=== PATIENT | male | born 1980 | race Caucasian/White ===

== ENCOUNTER 2020-07-17 23:15 | Observation (INO) | payer MEDICARE, MEDICAID, SELFPAY ==
--- NOTE | 2020-07-17 23:02 | ECG_ITS ---
APPROVED REPORT Exam: Resting ECG HR:112 bpm ECG Measurements Heart Rate 112 AXES DE 132 P 53 QRSd 90 QRS -11 QT 338 T 65 QTc 461 Conclusion Sinus tachycardia Otherwise normal ECG Electronically signed by : Jeff Partida, 07/18/2020 19:50:53
[2020-07-17 23:03] VITALS: BP 123/75; PULSE 107; RESP 16; TEMP 37.1; O2SAT 97; BMI 30.1
--- NOTE | 2020-07-17 23:09 | XR_ITS ---
PROCEDURE INFORMATION: Exam: XR Chest Exam date and time: 07/17/2020 11:09 PM Age: 40 years old Clinical indication: Radiating and sternal or substernal pain; Patient HX: Chest pain that radiates down left arm; Additional info: Cp TECHNIQUE: Imaging protocol: XR of the chest. Views: 2 views. COMPARISON: No relevant prior studies available. FINDINGS: Lungs: The lungs are clear without consolidation. Pleural spaces: Unremarkable. No pleural effusion. No pneumothorax. Heart/Mediastinum: The cardiac silhouette, mediastinal contours and hilar shadows appear unremarkable. Bones/joints: Osseous structures grossly intact. IMPRESSION: No acute cardiopulmonary disease.
--- NOTE | 2020-07-17 23:27 | HMH.EDCP ---
ED Disposition Clinical Impression: Obesity (BMI 30.0-34.9), Amphetamine abuse Chest pain Qualifiers: Chest pain type: precordial pain Qualified Code(s): R07.2 - Precordial pain Disposition: Admitted as Observation Condition on Discharge: Good Referrals: Provider,Referral, [Primary Care Provider] - - Critical Care Critical Care Time: No Attestation: On 07/17/20, the high probability of a clinically significant, sudden or life threatening deterioration of the following system(s) required my full and direct attention, intervention and personal management. The time I documented below is in addition to time spent performing reported procedures but includes the following listed in this critical care notation. Medical Decision Making - Medical Records Medical records reviewed: Yes: I reviewed the patient's medical records. - Andrea Inquiry Pt receiving controlled substance: No Vital Signs: 07/17/20 23:03 07/17/20 23:30 07/18/20 00:07 Temperature 98.7 F Temperature Source Oral Pulse Rate 93 H 83 Pulse Rate [Right] 107 H Respiratory Rate 16 16 Blood Pressure 129/80 120/77 Blood Pressure [Right Arm] 123/75 Blood Pressure Mean 96 87 Blood Pressure Mean [Right Arm] 91 02 Sat by Pulse Oximetry 97 96 98 07/18/20 00:30 Temperature Temperature Source Pulse Rate 93 H Pulse Rate [Right] Respiratory Rate Blood Pressure 135/76 Blood Pressure [Right Arm] Blood Pressure Mean 97 Blood Pressure Mean [Right Arm] 02 Sat by Pulse Oximetry 97 - Lab Data Lab results reviewed: Yes: I reviewed the patient's lab results. Lab Results 07/17/20 00:04: Urine Opiates Screen Negative, Urine Methadone Screen Negative, Ur Barbituates Screen Negative, Ur Phencyclidine Scrn Negative, U Benzodiazepines Scrn Positive H, Urine Cocaine Screen Negative, U Marijuana (THC) Screen Negative 07/17/20 23:03: WBC 12.1 H, RBC 5.41, Hgb 15.7, Hct 46.5, MCV 85.9, MCH 29.0, MCHC 33.8, RDW 15.9, Plt Count 348, MPV 8.4, Neut % (Auto) 64.7, Lymph % (Auto) 26.1, [place] % (Auto) 7.8, Eos % (Auto) 0.8, Baso % (Auto) 0.6, Neut # (Auto) 7.9 H, Lymph # (Auto) 3.2, [place] # (Auto) 1.0, Eos # (Auto) 0.1, Baso # (Auto) 0.1, ESR 22 H 07/17/20 23:03: Sodium 137, Potassium 3.2 L, Chloride 104, Carbon Dioxide 24, Anion Gap 12.2, BUN 14, Creatinine 1.00, Estimated Creat Clear 131, Estimated GFR 82, Est GFR ( Amer) 100, Glucose 152 H, Calcium 8.8, Total Bilirubin 0.3, Direct Bilirubin 0.3, Conjugated Bilirubin 0.0, Indirect Bilirubin 0.0, Unconjugated Bilirubin 0.0, AST 30, ALT 22, Alkaline Phosphatase 154 H, Troponin I < 0.01, C-Reactive Protein 8.3 H, Total Protein 6.9, Albumin 3.9, Procalcitonin 0.037, Salicylates 1.1 L, Acetaminophen < 10 L 07/17/20 23:03: Plasma/Serum Alcohol < 10 07/18/20 00:04: Urine Color Yellow, Urine Appearance Clear, Urine pH 6.0, Ur Specific [place] >= 1.030, Urine Protein Negative, Urine Glucose (UA) Negative, Urine Ketones Trace, Urine Blood Negative, Urine Nitrate Negative, Urine Bilirubin Negative, Urine Urobilinogen 0.2, Ur Leukocyte Esterase Negative, Urine WBC Occasional, Urine Bacteria Trace, Urine Mucus 1+ Result diagrams: 07/17/20 23:03 07/17/20 23:03 Orders (Tests/Meds): ED MEDICATIONS Generic Name Dose Route Start Last Admin Trade Name Freq PRN Reason Stop Dose Admin Sodium Chloride 1,000 mls @ 999 mls/hr 07/17/20 23:15 07/17/20 23:14 Sod Chlor 0.9% 1000ml Bag IV 07/18/20 00:15 999 mls/hr .Q1H1M AYALA Administration Discontinued Medications Generic Name Dose Route Start Last Admin Trade Name Freq PRN Reason Stop Dose Admin Nitroglycerin 1 gm 07/17/20 23:12 07/17/20 23:14 Nitroglycerin 1 Gm Ointment TD 07/17/20 23:13 1 gm ONCE ONE Administration ORDERS Category Date Time Status Drug Screen,Urine Stat Lab 07/17/20 00:04 Results Full Resp Panel w/COVID ([facility]) Routine Lab 07/18/20 00:35 Received Troponin I Q3H Lab 07/18/20 02:15 Ordered Troponin I Q3H Lab 0
[2020-07-17 23:30] VITALS: BP 129/80; PULSE 93; RESP 16; O2SAT 96
[2020-07-17 23:36] LABS: Basophils # 0.1 K/mm3 (0-0.2); Basophils % 0.6 % (0.1-2.0); Eosinophils # 0.1 K/mm3 (0.0-0.4); Eosinophils % 0.8 % (0.1-12.0); Hematocrit 46.5 % (42.0-52.0); Hemoglobin 15.7 g/dL (14.1-18.0); Lymphocytes # 3.2 K/mm3 (0.7-4.5); Lymphocytes % 26.1 % (10-50); Mean Corpuscular HGB Conc 33.8 g/dL (31.8-35.4); Mean Corpuscular Volume 85.9 fl (80-94); Mean Platelet Volume 8.4 fl (7.4-10.4); Monocytes % 7.8 % (1.7-9.3); Neutrophils # 7.9 K/mm3 (1.8-7.8); Neutrophils % 64.7 % (37.0-80.0); Platelet Count 348 K/mm3 (142-424); Red Blood Count 5.41 M/mm3 (4.60-6.20); Red Cell Distribution Width 15.9 % (11.5-17.5); White Blood Count 12.1 K/mm3 (4.8-10.8)
[2020-07-17 23:38] LABS: Chloride 104 mmol/L (98-107)
[2020-07-17 23:39] LABS: Potassium 3.2 mmoL/L (3.5-5.1); Sodium 137 mmol/L (136-145)
[2020-07-17 23:41] LABS: Anion Gap 12.2 mEq/L (5-15); Blood Urea Nitrogen 14 mg/dl (9-20); Carbon Dioxide 24 mmol/L (22.0-30.0); Creatinine Clearance Estimated 131 mL/min (50-200); Estimated Glomerular Filt Rate 82 ml/min (>60); GFR (African American) 100 ML/MIN (>60)
[2020-07-17 23:42] LABS: Alanine Aminotransferase 22 U/L (12-78); Albumin Level 3.9 g/dl (3.5-5.0); Alkaline Phosphatase 154 U/L (38-126); Aspartate Amino Transferase 30 U/L (17-59); Bilirubin,Direct 0.3 mg/dl (0.0-0.4); Bilirubin,Total 0.3 mg/dl (0.2-1.3); Calcium 8.8 mg/dl (8.4-10.2); Glucose 152 mg/dl (74-100); Salicylate 1.1 mg/dL (2.0-20.0); Total Protein,Serum 6.9 g/dl (6.3-8.2)
[2020-07-17 23:43] LABS: Acetaminophen < 10 ug/ml (10-30); Ethyl Alcohol < 10 mg/dl (0-10)
[2020-07-17 23:47] LABS: C-Reactive Protein 8.3 mg/L (0-4)
[2020-07-18] VITALS (9 sets, daily range): BP systolic 105–135; BP diastolic 62–77; PULSE 70–93; RESP 16–18; TEMP 36.8–37.2; O2SAT 96–98; BMI 28.6
[2020-07-18 00:05] LABS: Erythrocyte Sedimentation Rate 22 mm/hr (0-15)
[2020-07-18 00:11] LABS: Microscopic, Urine URINE MICROSCOPIC (MICROSCOPIC)
[2020-07-18 00:23] LABS: Appearance,Urine CLEAR (Clear); Blood, Urine Negative (Negative); Color,Urine YELLOW (Yellow); Glucose,Urine (UA) Negative (Negative); Ketones,Urine TRACE (Negative); Leukocyte Esterase,Urine Negative (Negative); Nitrate,Urine Negative (Negative); Protein,Urine Negative (Negative); Specific Gravity, Urine >= 1.030 (1.005-1.030); Urobilinogen,Urine 0.2 EU/dl (0.2)
[2020-07-18 00:24] LABS: Bilirubin,Urine Negative (Negative)
[2020-07-18 00:30] LABS: Procalcitonin 0.037 ng/mL (0.0-2.0); Troponin I < 0.01 ng/ml (0.00-0.034)
[2020-07-18 00:33] LABS: Bacteria,Urine Trace /lpf; Mucus,Urine 1+ /lpf; WBC,Urine Occasional #/hpf (0-3)
--- NOTE | 2020-07-18 00:34 | PC.NURSE ---
srinath on phone with Celso
[2020-07-18 00:36] LABS: Barbiturates Screen,Urine Negative ng/ml (<200); Benzodiazepines Screen,Urine Positive ng/ml (<200)
[2020-07-18 00:37] LABS: Cannabinoid Screen,Urine Negative ng/ml (<50)
[2020-07-18 00:38] LABS: Cocaine Screen,Urine Negative ng/ml (<300); Methadone Screen,Urine Negative ng/ml (<300)
--- NOTE | 2020-07-18 00:38 | PC.NURSE ---
sports nutritionist for service switched @ midnight now paged dr williamson
[2020-07-18 00:39] LABS: Opiate Screen,Urine Negative ng/ml (<300)
[2020-07-18 00:40] LABS: Adenovirus,PCR Not Detected (NotDetected); Bordetella Pertussis Not Detected (NotDetected); Chlamydophila Pneumoniae, PCR Not Detected (NotDetected); Coronavirus 19, PCR Not Detected (NotDetected); Coronavirus 229E Not Detected (NotDetected); Coronavirus NL63 Not Detected (NotDetected); Coronavirus OC43 Not Detected (NotDetected); Coronovirus HKU1,PCR Not Detected (NotDetected); Human Metapneumovirus Not Detected (NotDetected); Influenza A, PCR Not Detected (NotDetected); Influenza AH1, 2009 Not Detected (NotDetected); Influenza AH1, PCR Not Detected (NotDetected); Influenza AH3,PCR Not Detected (NotDetected); Influenza B, PCR Not Detected (NotDetected); Mycoplasma Pneumoniae, PCR Not Detected (NotDetected); Parainfluenza 1, PCR Not Detected (NotDetected); Parainfluenza 2, PCR Not Detected (NotDetected); Parainfluenza 3, PCR Not Detected (NotDetected); Parainfluenza 4, PCR Not Detected (NotDetected); Respiratory Syncytial Virus Not Detected (NotDetected); Rhinovirus/Enterovirus Not Detected (NotDetected)
[2020-07-18 00:40] LABS: Phencyclidine Screen,Urine Negative ng/ml (<25)
--- NOTE | 2020-07-18 00:45 | PC.NURSE ---
BED REQUESTED FOR PT ADMISSION, ROOM 201. PT ADMITTED OBS, TO DR. JOHNSON. ALL STAFF NOTIFIED
--- NOTE | 2020-07-18 02:41 | PC.NURSE ---
PT ARRIVED TO FLOOR VIA W/C FROM ED W/STAFF AT 0240
[2020-07-18 02:46] LABS: Troponin I < 0.01 ng/ml (0.00-0.034)
[2020-07-18 05:54] LABS: Basophils # 0.1 K/mm3 (0-0.2); Basophils % 0.3 % (0.1-2.0); Eosinophils # 0.1 K/mm3 (0.0-0.4); Eosinophils % 0.8 % (0.1-12.0); Hematocrit 41.2 % (42.0-52.0); Lymphocytes # 2.5 K/mm3 (0.7-4.5); Lymphocytes % 15.9 % (10-50); Mean Corpuscular HGB Conc 34.3 g/dL (31.8-35.4); Mean Corpuscular Hemoglobin 29.3 pg (27.0-31.2); Mean Corpuscular Volume 85.3 fl (80-94); Mean Platelet Volume 8.2 fl (7.4-10.4); Monocytes % 6.7 % (1.7-9.3); Neutrophils # 11.7 K/mm3 (1.8-7.8); Neutrophils % 76.2 % (37.0-80.0); Platelet Count 314 K/mm3 (142-424); Red Blood Count 4.83 M/mm3 (4.60-6.20); Red Cell Distribution Width 15.8 % (11.5-17.5); White Blood Count 15.3 K/mm3 (4.8-10.8)
[2020-07-18 05:59] LABS: MANUAL DIFFERENTIAL MANUAL DIFFERENTIAL (MANUAL DIFF)
[2020-07-18 06:00] LABS: Anion Gap 7.1 mEq/L (5-15); Blood Urea Nitrogen 12 mg/dl (9-20); Carbon Dioxide 23 mmol/L (22.0-30.0); Chloride 110 mmol/L (98-107); Chol/HDL Ratio 5.6 (1-3.5); Cholesterol 134 mg/dl (140-200); Creatinine Clearance Estimated 139 mL/min (50-200); Estimated Glomerular Filt Rate 93 ml/min (>60); GFR (African American) 113 ML/MIN (>60); Glucose 108 mg/dl (74-100); HDL Cholesterol 24 mg/dl (40-60); Magnesium 1.9 mg/dl (1.6-2.3); Potassium 4.1 mmoL/L (3.5-5.1); Sodium 136 mmol/L (136-145); Triglycerides 169 mg/dl (30-150); VLDL Cholesterol 34 mg/dL (0-40)
[2020-07-18 06:02] LABS: Hemoglobin 14.2 g/dL (14.1-18.0)
[2020-07-18 06:11] LABS: Direct LDL Cholesterol 70.35 mg/dL (100-129)
[2020-07-18 06:13] LABS: Troponin I < 0.01 ng/ml (0.00-0.034)
[2020-07-18 06:19] LABS: Lymphocytes % 15 % (10-50); Monocytes % 4 % (2-9); Neutrophils % 80 % (42-76); Platelet Estimate Normal; RBC Morphology Normal; Total Cells Counted 100
--- NOTE | 2020-07-18 07:18 | P.CONPHA_ITS ---
[facility] Pharmacy VTE Monitoring - Patient Demographics Admission date: 07/17/20 Report Date: 07/18/20 Time: 07:18 Allergies/Adverse Reactions: Patient Allergies cephalexin [From KEFLEX] Allergy (Unknown, Verified 07/17/20 23:14) ITCHING morphine [MORPHINE] Allergy (Unknown, Verified 07/17/20 23:14) HEADACHE sulfamethoxazole [From BACTRIM] Allergy (Unknown, Verified 07/17/20 23:14) BREATHING trimethoprim [From BACTRIM] Allergy (Unknown, Verified 07/17/20 23:14) BREATHING Height: 1.78 m Weight: 90.718 kg Patient Problems: Current Active Problems Chest pain (Acute) Obesity (BMI 30.0-34.9) (Acute) Amphetamine abuse (Acute) - VTE Risk Labs: VTE Related Lab Results Hgb 14.2 g/dL (14.1-18.0) 07/18/20 05:35 Hct 41.2 % (42.0-52.0) L 07/18/20 05:35 Plt Count 314 K/mm3 (142-424) 07/18/20 05:35 BUN 12 mg/dl (9-20) 07/18/20 05:35 Creatinine 0.90 mg/dl (0.66-1.25) 07/18/20 05:35 Estimated Creat Clear 139 mL/min (50-200) 07/18/20 05:35 - Prophylaxis VTE Prophylaxis Ordered?: Yes Types of VTE Prophylaxis: TEDS Knee High Location of Applied Device: Bilateral Lower Extremeties
--- NOTE | 2020-07-18 08:00 | CA_ITS ---
APPROVED REPORT EXAM: Comprehensive 2D, Doppler, and color-flow [facility] Pricing Consultant: Blank Lopez CRT Ht: 5 ft 10 in Wt: 210lbs BSA: 2.13 BP: 135/76 mmHg Indications: Chest Pain 2D Dimensions LVOT 2.02 cm (M/F) 1.5-2.5 LA Volume 26.90 mL LA Volume Index 12.60 mL/m2 (M/F) 16-34 M-Mode Dimensions RVDd 2.47 cm (0.9-2.6) LA Diam 3.70 cm (1.9-4.0) LVDd 5.03 cm (3.5-5.7) Ao Diam 3.62 cm (2.0-3.7) LVDs 3.33 cm (3.5-5.7) IVSd 1.51 cm (0.6-1.1) PWd 0.71 cm (0.6-1.1) EF (Teich) 62.40% FS 33.80% EDV (Teich) 119.90 mL ESV (Teich) 45.10 mL LV Diastology E Decel Time 323.00 (160-240 msec) E/A Ratio 0.78 MED E' 6.00 (< 7 cm/sec) MED A' 9.50 cm/s E'/MED E' Ratio 9.20 (>14) LAT E' 9.40 (<10 cm/sec) LAT A' 7.80 cm/s E/LAT E' Ratio 5.87 (>14) Aortic Valve AO Peak GR. 5.20 mmHg Mitral Valve MV A Velocity 71.00 (40-130 cm/s) E/A Ratio 0.78 MV Decel. Time 323.00 (160-240 ms) Pulmonary Valve PV Peak Velocity 116.00 (50-150 cm/s) Tricuspid Valve TR P. Velocity 168.00 cm/s RAP Estimate 10.00 mmHg RVSP 21.30 mmHg Left Ventricle Left atrium is normal size, left ventricle is normal size, there is no concentric left ventricular hypertrophy, visually estimated ejection fraction 55% with no regional wall motion abnormality, diastolic parameters are inconclusive. Right Ventricle Right atrium and right ventricle are normal size and contractility. Aortic Valve Aortic valve is grossly normal, there is no aortic stenosis or aortic insufficiency. Mitral Valve Mitral valve is grossly normal, there is trace mitral regurgitation. Tricuspid Valve Tricuspid grossly normal, there is trace tricuspid regurgitation, tricuspid regurgitation jet velocity is inadequate for calculation of the right ventricular systolic pressure. Pulmonic Valve Pulmonic valve is poorly visualized. Great Vessels Aortic root is normal size. Pericardium No significant pericardial effusion noted. Conclusion 1. Normal left ventricular size, preserved left ventricular systolic function, visually estimated ejection fraction 55% with no regional wall motion abnormality, diastolic parameters are inconclusive. 2. Trace mitral and tricuspid regurgitation. 3. No significant pericardial effusion noted. Electronically signed by : Jg Cobb, 07/18/2020 18:38:53
--- NOTE | 2020-07-18 08:29 | HMH.HPDC ---
<Melonie Kent - Last Filed: 07/18/20 08:52> General - General Admission date:: 07/18/20 Discharge date: 07/18/20 *Admission Date: 07/17/20 *Chief complaint: Chest pain *History of present illness: Mr. Barker is a 40yo WM with history of Crohns disease, GERD, anxiety, depression, autoimmune BLE neuropathy, and substance abuse who regularly sees Dr. Jourdan Link for primary care. He also sees Dr. Tim Huerta for gastroenterology and Dr. Matt Cotto for neurology. He presented to the [facility] ER yesterday when he experienced chest pain and left arm heaviness while using amphetamines which was accompanied by dizziness and generalized weakness. He did have relief of the chest pain with nitroglycerin. Workup in the ER was significant for mildly elevated WBC and potassium level of 3.2. CXR showed nothing acute. EKG was sinus tach with nonspecific ST-T wave changes. He was admitted to service for observation. This morning he is resting in bed without complaint. His chest pain has been controlled with nitroglycerin patch. His potassium has normalized and serial troponins have returned normal. He is felt to be stable for discharge with followup with his PCP. [facility] History Medical History: Reports:: Anxiety, Depression, Gastroesophageal Reflux Disease(GERD) Denies:: Diabetes Mellitus Type 1, Diabetes Mellitus Type 2 *Have you ever received a pneumonia vaccine?: No *Have you received a flu vaccine this season?: No Other Medical History: Reports: Other Comment:: Crohn's, Autoimmune BLE neuropathy - *Social History Last grade of school completed: GED Smoking Status: Current every day smoker Tobacco Type: cigarettes # Packs/Day (cigarettes): 1 Alcohol Intake: never Substance Use Type: amphetamines Last Used Substance: hours (ago) *Occupational Status:: disabled *Travel in the last 8 weeks: None Family Hx:: Cancer, Coronary Artery Disease, Heart Attack, Hypertension Review of Systems - Constitutional Reports headache(s), Reports weakness, Denies fever(s) - Eyes Denies blurry vision, Denies double vision, Denies loss of vision - ENT Reports headache(s), Reports nasal congestion, Reports sinus pain, Reports sinus pressure - *Cardiovascular Reports chest pain, Reports chest pain at rest, Reports lightheadedness, Reports radiating jaw, neck or arm pain, Denies shortness of breath, Denies generalized swelling - *Respiratory Denies chest congestion, Denies shortness of breath, Denies shortness of breath with activity - *Gastrointestinal Denies abdominal pain, Denies change in stools, Denies loose stools, Denies nausea, Denies vomiting - *Genitourinary Denies difficulty urinating, Denies blood in urine - *Musculoskeletal Reports muscle weakness - *Neurologic Reports dizziness, Reports headache(s), Reports weakness, Denies seizure-like activity, Denies localized weakness, Denies seizure-like activity Exam Vital signs and Labs for Last 24 Hours: Temp Pulse Resp BP Pulse Ox 98.9 F 74 18 125/75 97 07/18/20 07:20 07/18/20 07:20 07/18/20 07:20 07/18/20 07:20 07/18/20 07:20 Laboratory Results - last 24 hr 07/17/20 00:04: Urine Opiates Screen Negative, Urine Methadone Screen Negative, Ur Barbituates Screen Negative, Ur Phencyclidine Scrn Negative, Ur Amphetamines Screen Cleat Maker, U Benzodiazepines Scrn Positive H, Urine Cocaine Screen Negative, U Marijuana (THC) Screen Negative 07/17/20 23:03: WBC 12.1 H, RBC 5.41, Hgb 15.7, Hct 46.5, MCV 85.9, MCH 29.0, MCHC 33.8, RDW 15.9, Plt Count 348, MPV 8.4, Neut % (Auto) 64.7, Lymph % (Auto) 26.1, [place] % (Auto) 7.8, Eos % (Auto) 0.8, Baso % (Auto) 0.6, Neut # (Auto) 7.9 H, Lymph # (Auto) 3.2, [place] # (Auto) 1.0, Eos # (Auto) 0.1, Baso # (Auto) 0.1, ESR 22 H 07/17/20 23:03: Sodium 137, Potassium 3.2 L, Chloride 104, Carbon Dioxide 24, Anion Gap 12.2, BUN 14, Creatinine 1.00, Estimated Creat Clear 131, Estimated GFR 82, Est GFR ( Amer) 100, Glucose 152 H, Calcium 8.8, Total Bilirubin
--- NOTE | 2020-07-18 09:22 | HMH.PHAINT ---
MEDICATION RECONCILIATION COMPLETED ON PATIENT USING EXTERNAL FILL HISTORY FROM PHARMACY. SPOKE TO DR. JOHNSON SINCE PATIENT IS BEING DISCHARGED, HE DOES NOT PLAN TO CHANGE ANY OF THE PATIENT'S HOME MEDICATIONS AT THIS TIME. -ZHANNA PALACIOSD
--- NOTE | 2020-07-18 10:47 | PC.NURSE ---
Addendum entered by Shaista Holly RN 07/18/20 10:52: Pt states @ this time, the only person that may be able to come and get him is his uncle, but it would not be until around 1700 this afternoon. Original Note: DC paperwork reviewed w/ pt this AM, no questions @ this time. Pt states he does not have a ride. Contacted Clarissa Navarro to ask about [employer], states she will contact them for pt. [phone] - Clarissa called back and states that pt did not qualify for ride and that if he wished to use this service he would have to pay out of pocket. Pt states he does not have the funds for this. Clarissa called pt's mother for him who states she is not available, she is babysitting today. Pt has a personal cell phone, but states his family will not answer him. He is currently trying to find ride, will check back w/ pt.
--- NOTE | 2020-07-18 11:05 | SW/DCPLANNER ---
I have attempted to arrange [employer] for this patient: due to patient having Medicare plan as primary he would be private pay for transportation. I explained this to patient and he stated that he does not have funds for transportation and he would contact family/friends. Patient is medically stable for discharge today.
--- NOTE | 2020-07-18 14:15 | PC.NURSE ---
Pt resting in bed. No needs voiced. Still waiting on ride @ this time. Denies pain.
[2020-07-26 17:16] LABS: Amphetamine Positive (.); Amphetamine (GC/MS) 16566 ng/mL (Cutoff=500); Amphetamines Positive (.); Methamphetamine Positive (.); Methamphetamine (GC/MS) >3000 ng/mL (Cutoff=500)
== END 2020-07-18 14:20 | disposition home or self-care (01) ==
LOC: ER 07-18 00:46 → 2ND 07-18 00:49
PROVIDERS: Admitting Provider Family Medicine; Emergency Provider Emergency Medicine; Visit Provider Family Medicine
DX: R07.9 Chest pain, unspecified (principal); F15.10 Other stimulant abuse, uncomplicated; E66.9 Obesity, unspecified; Z68.28 Body mass index [BMI] 28.0-28.9, adult; Z20.822 Contact with and (suspected) exposure to COVID-19; F17.210 Nicotine dependence, cigarettes, uncomplicated; F41.9 Anxiety disorder, unspecified; F32.9 Major depressive disorder, single episode, unspecified; K21.9 Gastro-esophageal reflux disease without esophagitis; G62.9 Polyneuropathy, unspecified; K50.90 Crohn's disease, unspecified, without complications
CPT/HCPCS: G0378; 36415; 71046; 80048; 80061; 80076; 80305; 80324; 80329; 81001; 83735; 84145; 84484; 85007; 85025; 85651; 86140; 87581; 87633; 87798; 93005; 93306; 96365; 99284

== ENCOUNTER 2020-07-22 01:47 | Emergency (ER) | payer MEDICARE, MEDICAID, SELFPAY ==
[2020-07-22] VITALS (7 sets, daily range): BP systolic 102–135; BP diastolic 61–96; PULSE 68–112; RESP 16–21; TEMP 36.4–36.6; O2SAT 97–100; BMI 28.7
--- NOTE | 2020-07-22 01:52 | ECG_ITS ---
APPROVED REPORT Exam: Resting ECG HR:93 bpm ECG Measurements Heart Rate 93 AXES WA 162 P 65 QRSd 90 QRS -5 QT 340 T 58 QTc 422 Conclusion Normal sinus rhythm Late R wave progression Abnormal ECG Electronically signed by : Jeff Partida, 07/23/2020 08:53:31
--- NOTE | 2020-07-22 01:58 | XR_ITS ---
PROCEDURE INFORMATION: Exam: XR Chest Exam date and time: 07/22/2020 1:58 AM Age: 40 years old Clinical indication: Other: Palpations; Additional info: Palpatations TECHNIQUE: Imaging protocol: XR of the chest. Views: 2 views. COMPARISON: CR XR CHEST 2V 07/17/2020 11:14 PM FINDINGS: Lungs: Unremarkable. No consolidation. Pleural spaces: Unremarkable. No pleural effusion. No pneumothorax. Heart/Mediastinum: Unremarkable. No cardiomegaly. Bones/joints: Unremarkable. IMPRESSION: No acute findings.
--- NOTE | 2020-07-22 02:03 | CT_ITS ---
PROCEDURE INFORMATION: Exam: CT Abdomen And Pelvis With Contrast Exam date and time: 07/22/2020 2:03 AM Age: 40 years old Clinical indication: Abdominal pain; Localized; Patient HX: Upper abd pain with nausea; Additional info: Luq pain TECHNIQUE: Imaging protocol: Computed tomography of the abdomen and pelvis with contrast. Radiation optimization: All CT scans at this facility use at least one of these dose optimization techniques: automated exposure control; mA and/or kV adjustment per patient size (includes targeted exams where dose is matched to clinical indication); or iterative reconstruction. Contrast material: ISOVUE; Contrast volume: 75 ml; Contrast route: IV; COMPARISON: No relevant prior studies available. FINDINGS: Lungs: Uremarkable. No infiltrate. Liver: Unremarkagble.No mass. Gallbladder and bile ducts: Normal. No calcified stones. No ductal dilation. Pancreas: Normal. No ductal dilation. Spleen: Normal. No splenomegaly. Adrenal glands: Normal. No mass. Kidneys and ureters: Normal. No hydronephrosis. Stomach and bowel: Fat within the wall of the terminal and distal ileum can be seen as a sequela of previous ileitis. Appendix: Normal appendix. Specifically no colitis or diverticulitis Intraperitoneal space: Unremarkable. No free air. No significant fluid collection. Vasculature: Unremarkable. No abdominal aortic aneurysm. Lymph nodes: Unremarkable. No enlarged lymph nodes. Urinary bladder: Unremarkable as visualized. Reproductive: Unremarkable as visualized. Bones/joints: Unremarkable. No acute fracture. Soft tissues: Unremarkable. IMPRESSION: No acute or inflammatory disease or bowel obstruction.
[2020-07-22 02:19] LABS: Basophils # 0.1 K/mm3 (0-0.2); Basophils % 0.3 % (0.1-2.0); Eosinophils # 0.2 K/mm3 (0.0-0.4); Eosinophils % 0.8 % (0.1-12.0); Hematocrit 44.8 % (42.0-52.0); Hemoglobin 15.5 g/dL (14.1-18.0); Lymphocytes # 2.7 K/mm3 (0.7-4.5); Lymphocytes % 13.3 % (10-50); Mean Corpuscular HGB Conc 34.5 g/dL (31.8-35.4); Mean Corpuscular Hemoglobin 28.9 pg (27.0-31.2); Mean Corpuscular Volume 83.8 fl (80-94); Mean Platelet Volume 8.5 fl (7.4-10.4); Monocytes # 1.3 K/mm3 (0.1-1.0); Monocytes % 6.6 % (1.7-9.3); Platelet Count 339 K/mm3 (142-424); Red Blood Count 5.35 M/mm3 (4.60-6.20); Red Cell Distribution Width 15.7 % (11.5-17.5); White Blood Count 20.3 K/mm3 (4.8-10.8)
[2020-07-22 02:22] LABS: MANUAL DIFFERENTIAL MANUAL DIFFERENTIAL (MANUAL DIFF)
--- NOTE | 2020-07-22 02:24 | HMH.EDARPALP ---
ED Disposition Clinical Impression: Anxiety, Amphetamine abuse Abdominal pain Qualifiers: Abdominal location: left upper quadrant Qualified Code(s): R10.12 - Left upper quadrant pain Disposition: Home, Self-Care Condition on Discharge: Good Instructions: DI for Substance Use Disorder Additional Instructions: call pcp for follow up Referrals: Provider,Referral, [Primary Care Provider] - - Critical Care Critical Care Time: No Attestation: On 07/22/20, the high probability of a clinically significant, sudden or life threatening deterioration of the following system(s) required my full and direct attention, intervention and personal management. The time I documented below is in addition to time spent performing reported procedures but includes the following listed in this critical care notation. Medical Decision Making - Medical Records Medical records reviewed: Yes: I reviewed the patient's medical records. - Andrea Inquiry Pt receiving controlled substance: No Vital Signs: 07/22/20 01:46 07/22/20 02:31 07/22/20 03:30 Temperature 97.5 F L Temperature Source Oral Pulse Rate 91 H 74 Pulse Rate [Left Radial] 112 H Respiratory Rate 21 Blood Pressure 129/96 H 126/90 Blood Pressure [Right Arm] 126/88 Blood Pressure Mean 111 102 Blood Pressure Mean [Right Arm] 100 Blood Pressure Source [Right Arm] Automatic Cuff Blood Pressure Position [Right Arm] Supine 02 Sat by Pulse Oximetry 99 99 98 Oxygen Delivery Method Room Air Room Air Room Air 07/22/20 04:00 07/22/20 04:42 07/22/20 05:00 Temperature Temperature Source Pulse Rate 72 69 68 Pulse Rate [Left Radial] Respiratory Rate Blood Pressure 135/87 106/67 L 112/74 Blood Pressure [Right Arm] Blood Pressure Mean 103 83 83 Blood Pressure Mean [Right Arm] Blood Pressure Source [Right Arm] Blood Pressure Position [Right Arm] 02 Sat by Pulse Oximetry 97 100 97 Oxygen Delivery Method Room Air Room Air Room Air - Lab Data Lab results reviewed: Yes: I reviewed the patient's lab results. Lab Results 07/22/20 02:05: WBC 20.3 H*, RBC 5.35, Hgb 15.5, Hct 44.8, MCV 83.8, MCH 28.9, MCHC 34.5, RDW 15.7, Plt Count 339, MPV 8.5, Neut % (Auto) 79.0, Lymph % (Auto) 13.3, [place] % (Auto) 6.6, Eos % (Auto) 0.8, Baso % (Auto) 0.3, Neut # (Auto) 16.0 H, Lymph # (Auto) 2.7, [place] # (Auto) 1.3 H, Eos # (Auto) 0.2, Baso # (Auto) 0.1, Total Counted 100, Neutrophils % (Manual) 84 H, Lymphocytes % (Manual) 9 L, Atypical Lymphs % 1.0, Monocytes % (Manual) 5, Eosinophils % (Manual) 1, Platelet Estimate Normal, RBC Morphology Normal 07/22/20 02:05: Sodium 136, Potassium 3.3 L, Chloride 104, Carbon Dioxide 22, Anion Gap 13.3, BUN 14, Creatinine 1.10, Estimated Creat Clear 113, Estimated GFR 74, Est GFR ( Amer) 89, Glucose 108 H, Calcium 8.8, Troponin I < 0.01, C-Reactive Protein 17.0 H, Amylase 53, Lipase 107 07/22/20 02:05: ESR 10 07/22/20 02:05: Total Bilirubin 0.5, Direct Bilirubin 0.4, Conjugated Bilirubin 0.0, Indirect Bilirubin 0.1, Unconjugated Bilirubin 0.1, AST 27, ALT 19, Alkaline Phosphatase 158 H, Total Protein 6.8, Albumin 3.9, Procalcitonin 0.045 07/22/20 04:55: Troponin I < 0.01 Result diagrams: 07/22/20 02:05 07/22/20 02:05 Orders (Tests/Meds): ED MEDICATIONS Generic Name Dose Route Start Last Admin Trade Name Freq PRN Reason Stop Dose Admin Sodium Chloride 1,000 mls @ 999 mls/hr 07/22/20 02:15 07/22/20 02:18 Sod Chlor 0.9% 1000ml Bag IV 07/22/20 03:15 999 mls/hr .Q1H1M AYALA Administration Discontinued Medications Generic Name Dose Route Start Last Admin Trade Name Freq PRN Reason Stop Dose Admin Iopamidol 75 ml 07/22/20 03:14 07/22/20 03:15 Iopamidol-370 (76%);100ml Bottle IV 07/22/20 03:15 75 ml ONCE ONE Administration Sodium Chloride 10 ml 07/22/20 03:14 07/22/20 03:15 Sodium Chloride 0.9% 10ml Syr (Rad Only) IV 07/22/20 03:15 10 ml ONCE ONE Administration ORDERS
[2020-07-22 02:25] LABS: Amylase 53 U/L (30-110); Anion Gap 13.3 mEq/L (5-15); Blood Urea Nitrogen 14 mg/dl (9-20); Calcium 8.8 mg/dl (8.4-10.2); Carbon Dioxide 22 mmol/L (22.0-30.0); Chloride 104 mmol/L (98-107); Creatinine Clearance Estimated 113 mL/min (50-200); Estimated Glomerular Filt Rate 74 ml/min (>60); GFR (African American) 89 ML/MIN (>60); Glucose 108 mg/dl (74-100); Lipase 107 U/L (23-300); Potassium 3.3 mmoL/L (3.5-5.1); Sodium 136 mmol/L (136-145)
[2020-07-22 02:26] LABS: Alanine Aminotransferase 19 U/L (12-78); Albumin Level 3.9 g/dl (3.5-5.0); Alkaline Phosphatase 158 U/L (38-126); Aspartate Amino Transferase 27 U/L (17-59); Bilirubin,Direct 0.4 mg/dl (0.0-0.4); Bilirubin,Indirect 0.1 mg/dL (0.0-0.9); Bilirubin,Total 0.5 mg/dl (0.2-1.3); Bilirubin,Unconjugated 0.1 mg/dL (0.0-1.1); Total Protein,Serum 6.8 g/dl (6.3-8.2)
--- NOTE | 2020-07-22 02:37 | PC.NURSE ---
Pt frustrated with staff, demanding medication for anxiety. Dr. Leblanc aware. tray line supervisor, Jeremie Zamudio RN made aware of pt being upset and s/w pt at this time.
[2020-07-22 02:44] LABS: Procalcitonin 0.045 ng/mL (0.0-2.0); Troponin I < 0.01 ng/ml (0.00-0.034)
[2020-07-22 02:51] LABS: Eosinophils % 1 % (0-3); Lymphocytes % 9 % (10-50); Monocytes % 5 % (2-9); Neutrophils % 84 % (42-76); RBC Morphology Normal; Total Cells Counted 100
[2020-07-22 02:52] LABS: Platelet Estimate Normal
[2020-07-22 02:54] LABS: Erythrocyte Sedimentation Rate 10 mm/hr (0-15)
[2020-07-22 05:26] LABS: Troponin I < 0.01 ng/ml (0.00-0.034)
== END 2020-07-22 06:01 | disposition home or self-care (01) ==
PROVIDERS: Emergency Provider Emergency Medicine
DX: F15.10 Other stimulant abuse, uncomplicated (principal); F41.8 Other specified anxiety disorders; R10.12 Left upper quadrant pain; R00.2 Palpitations; K21.9 Gastro-esophageal reflux disease without esophagitis; F17.210 Nicotine dependence, cigarettes, uncomplicated
CPT/HCPCS: 71046; 74177; 80048; 80076; 82150; 83690; 84145; 84484; 85007; 85025; 85651; 86140; 93005; 96365; 99282; Q9967

== ENCOUNTER 2020-10-24 05:17 | Emergency (ER) | payer MEDICARE, MEDICAID, SELFPAY ==
[2020-10-24 05:18] VITALS: BP 132/82; PULSE 96; RESP 18; TEMP 36.7; O2SAT 99; BMI 28.7
--- NOTE | 2020-10-24 05:38 | XR_ITS ---
PROCEDURE INFORMATION: Exam: XR Right Hand Exam date and time: 10/24/2020 5:38 AM Age: 40 years old Clinical indication: Swelling; Patient HX: Right hand swollen for a week, no known injury. TECHNIQUE: Imaging protocol: XR Right hand. Views: 3 or more views. COMPARISON: No relevant prior studies available. FINDINGS: Bones/joints: No acute fracture or dislocation is identified. There is no bone destruction, periostitis or endosteal scalloping. Soft tissues: There is no soft tissue gas, focal swelling or radiopaque foreign body. IMPRESSION: No acute findings.
[2020-10-24 05:47] LABS: Basophils # 0.1 K/mm3 (0-0.2); Basophils % 0.6 % (0.1-2.0); Eosinophils # 0.3 K/mm3 (0.0-0.4); Eosinophils % 1.4 % (0.1-12.0); Hematocrit 43.7 % (42.0-52.0); Hemoglobin 14.2 g/dL (14.1-18.0); Lymphocytes # 3.1 K/mm3 (0.7-4.5); Lymphocytes % 17.9 % (10-50); Mean Corpuscular HGB Conc 32.5 g/dL (31.8-35.4); Mean Corpuscular Hemoglobin 30.1 pg (27.0-31.2); Mean Corpuscular Volume 92.5 fl (80-94); Mean Platelet Volume 8.5 fl (7.4-10.4); Monocytes # 1.2 K/mm3 (0.1-1.0); Monocytes % 7.2 % (1.7-9.3); Neutrophils # 12.5 K/mm3 (1.8-7.8); Neutrophils % 72.9 % (37.0-80.0); Platelet Count 336 K/mm3 (142-424); Red Blood Count 4.73 M/mm3 (4.60-6.20); Red Cell Distribution Width 15.4 % (11.5-17.5); White Blood Count 17.1 K/mm3 (4.8-10.8)
[2020-10-24 05:49] LABS: MANUAL DIFFERENTIAL MANUAL DIFFERENTIAL (MANUAL DIFF)
[2020-10-24 05:55] LABS: Barbiturates Screen,Urine Negative ng/ml (<200)
[2020-10-24 05:55] LABS: Lactic Acid 1.8 mmol/L (0.7-2.1)
[2020-10-24 05:56] LABS: Benzodiazepines Screen,Urine Positive ng/ml (<200)
[2020-10-24 05:57] LABS: Cannabinoid Screen,Urine Negative ng/ml (<50); Cocaine Screen,Urine Negative ng/ml (<300)
[2020-10-24 05:58] LABS: Methadone Screen,Urine Negative ng/ml (<300)
[2020-10-24 05:59] LABS: Opiate Screen,Urine Negative ng/ml (<300); Phencyclidine Screen,Urine Negative ng/ml (<25)
[2020-10-24 05:59] LABS: Alanine Aminotransferase 23 U/L (12-78); Albumin Level 3.5 g/dl (3.5-5.0); Albumin/Globulin Ratio 1.4 (1.1-1.8); Alkaline Phosphatase 132 U/L (38-126); Anion Gap 12.7 mEq/L (5-15); Aspartate Amino Transferase 28 U/L (17-59); Bilirubin,Total 0.3 mg/dl (0.2-1.3); Blood Urea Nitrogen 7 mg/dl (9-20); Calcium 8.6 mg/dl (8.4-10.2); Carbon Dioxide 27 mmol/L (22.0-30.0); Chloride 104 mmol/L (98-107); Creatinine Clearance Estimated 139 mL/min (50-200); Estimated Glomerular Filt Rate 93 ml/min (>60); GFR (African American) 113 ML/MIN (>60); Globulin 2.5 g/dL (1.3-3.2); Glucose 95 mg/dl (74-100); Potassium 3.7 mmoL/L (3.5-5.1); Sodium 140 mmol/L (136-145)
[2020-10-24 06:04] LABS: C-Reactive Protein 17.7 mg/L (0-4)
[2020-10-24 06:18] LABS: Procalcitonin 0.046 ng/mL (0.0-2.0)
[2020-10-24 06:19] LABS: Eosinophils % 1 % (0-3); Lymphocytes % 22 % (10-50); Monocytes % 1 % (2-9); Neutrophils % 75 % (42-76); Platelet Estimate Normal; RBC Morphology Normal; Total Cells Counted 100
[2020-10-24 06:26] LABS: Erythrocyte Sedimentation Rate 17 mm/hr (0-15)
--- NOTE | 2020-10-24 07:21 | HMH.EDUPEXT ---
ED Disposition Clinical Impression: Tenosynovitis of right hand, Amphetamine abuse Disposition: Home, Self-Care Condition on Discharge: Good Instructions: DI for Tenosynovitis Additional Instructions: use meds and see pcp this week for follow up Prescriptions: clindamycin HCL [Clindamycin HCl] 300 mg PO TID #21 cap Transmission Status: Pending to [facility] levoFLOXacin [Levaquin 500mg tab] 500 mg PO DAILY #7 tab Transmission Status: Pending to [facility] predniSONE [Prednisone 20mg Tab] 20 mg PO BID #10 tab Transmission Status: Pending to [facility] Referrals: Provider,Referral, [Primary Care Provider] - - Critical Care Critical Care Time: No Attestation: On 10/24/20, the high probability of a clinically significant, sudden or life threatening deterioration of the following system(s) required my full and direct attention, intervention and personal management. The time I documented below is in addition to time spent performing reported procedures but includes the following listed in this critical care notation. Medical Decision Making - Medical Records Medical records reviewed: Yes: I reviewed the patient's medical records. - Andrea Inquiry Pt receiving controlled substance: No Vital Signs: 10/24/20 05:18 Temperature 98.0 F Temperature Source Oral Pulse Rate [Right] 96 H Respiratory Rate 18 Blood Pressure [Right Arm] 132/82 Blood Pressure Mean [Right Arm] 98 02 Sat by Pulse Oximetry 99 - Lab Data Lab results reviewed: Yes: I reviewed the patient's lab results. 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, U Benzodiazepines Scrn Positive H, Urine Cocaine Screen Negative, U Marijuana (THC) Screen Negative 10/24/20 05:30: WBC 17.1 H, RBC 4.73, Hgb 14.2, Hct 43.7, MCV 92.5, MCH 30.1, MCHC 32.5, RDW 15.4, Plt Count 336, MPV 8.5, Neut % (Auto) 72.9, Lymph % (Auto) 17.9, [place] % (Auto) 7.2, Eos % (Auto) 1.4, Baso % (Auto) 0.6, Neut # (Auto) 12.5 H, Lymph # (Auto) 3.1, [place] # (Auto) 1.2 H, Eos # (Auto) 0.3, Baso # (Auto) 0.1, Total Counted 100, Neutrophils % (Manual) 75, Lymphocytes % (Manual) 22, Monocytes % (Manual) 1 L, Eosinophils % (Manual) 1, Basophils % (Manual) 1.0, Platelet Estimate Normal, RBC Morphology Normal, ESR 17 H 10/24/20 05:30: Sodium 140, Potassium 3.7, Chloride 104, Carbon Dioxide 27, Anion Gap 12.7, BUN 7 L, Creatinine 0.90, Estimated Creat Clear 139, Estimated GFR 93, Est GFR ( Amer) 113, Glucose 95, Calcium 8.6, Total Bilirubin 0.3, AST 28, ALT 23, Alkaline Phosphatase 132 H, C-Reactive Protein 17.7 H, Total Protein 6.0 L, Albumin 3.5, Globulin 2.5, Albumin/Globulin Ratio 1.4, Procalcitonin 0.046 10/24/20 05:30: Lactate 1.8 Result diagrams: 10/24/20 05:30 10/24/20 05:30 Orders (Tests/Meds): ED MEDICATIONS Discontinued Medications Generic Name Dose Route Start Last Admin Trade Name Freq PRN Reason Stop Dose Admin Sodium Chloride 1,000 mls @ 999 mls/hr 10/24/20 05:45 10/24/20 05:43 Sod Chlor 0.9% 1000ml Bag IV 10/24/20 06:45 999 mls/hr .Q1H1M AYALA Administration Ketorolac Tromethamine 30 mg 10/24/20 05:39 10/24/20 05:43 Ketorolac 30mg/Ml Vial IV 10/24/20 05:40 30 mg ONCE ONE Administration Methylprednisolone Sodium Succinate 125 mg 10/24/20 07:10 10/24/20 07:12 Methylprednisolone Sod Succ 125mg Vial IV 10/24/20 07:11 125 mg ONCE ONE Administration ORDERS Category Date Time Status Blood Culture Stat Micro 10/24/20 05:30 Received - Radiology Data #1 Image(s): Hand Image Reviewed: Yes I have reviewed radiologist's interpretation Preliminary Findings: No Fracture Seen Medical Decision Narrative: clinical tenosynovitis - and has abn uds Upper Extremity HPI - General Chief Complaint: Extremity Injury, Upper Stated Comp
[2020-10-24 07:39] VITALS: BP 138/89; PULSE 98; RESP 16; TEMP 37.1; O2SAT 98
[2020-11-03 03:37] LABS: Amphetamine Positive (.); Amphetamine (GC/MS) 16885 ng/mL (Cutoff=500); Amphetamines Positive (.); Methamphetamine Positive (.); Methamphetamine (GC/MS) >3000 ng/mL (Cutoff=500)
== END 2020-10-24 07:41 | disposition home or self-care (01) ==
PROVIDERS: Emergency Provider Emergency Medicine
DX: M65.841 Other synovitis and tenosynovitis, right hand (principal); F41.8 Other specified anxiety disorders; K21.9 Gastro-esophageal reflux disease without esophagitis; F15.10 Other stimulant abuse, uncomplicated; F17.210 Nicotine dependence, cigarettes, uncomplicated; Z88.2 Allergy status to sulfonamides; Z88.5 Allergy status to narcotic agent; Z79.899 Other long term (current) drug therapy
CPT/HCPCS: 73130; 80053; 80305; 80324; 83605; 84145; 85007; 85025; 85651; 86140; 87040; 99282

== ENCOUNTER 2021-01-30 01:36 | Emergency (ER) | payer MEDICARE, MEDICAID, SELFPAY ==
[2021-01-30 01:38] VITALS: BP 144/78; PULSE 88; RESP 18; TEMP 36.8; O2SAT 99; BMI 27.2
--- NOTE | 2021-01-30 02:44 | CT_ITS ---
PROCEDURE INFORMATION: Exam: CT Orbits Without Contrast Exam date and time: 01/30/2021 2:44 AM Age: 40 years old Clinical indication: Injury or trauma; Other: Poked R eye with needle; Puncture; Ocular (eye or eyeball); Right; Not specified; Additional info: Eye injury TECHNIQUE: Imaging protocol: Computed tomography images of the orbits without contrast. Radiation optimization: All CT scans at this facility use at least one of these dose optimization techniques: automated exposure control; mA and/or kV adjustment per patient size (includes targeted exams where dose is matched to clinical indication); or iterative reconstruction. COMPARISON: No relevant prior studies available. FINDINGS: Orbital cavity: Unremarkable as visualized. Paranasal sinuses: No acute sinusitis. Mastoid air cells: No significant effusion. Bones/joints: No acute fracture. Soft tissues: Unremarkable. Other findings: No radiopaque foreign bodies. IMPRESSION: No fracture.
--- NOTE | 2021-01-30 03:10 | HMH.EDEYEP ---
ED Disposition Clinical Impression: Injury, eye Qualifiers: Encounter type: initial encounter Laterality: right Qualified Code(s): S05.91XA - Unspecified injury of right eye and orbit, initial encounter Disposition: Home, Self-Care Condition on Discharge: Good Instructions: DI for Eye Pain Additional Instructions: see dr lange today - [phone] Referrals: Provider,Referral, [Primary Care Provider] - - Critical Care Critical Care Time: No Attestation: On 01/30/21, the high probability of a clinically significant, sudden or life threatening deterioration of the following system(s) required my full and direct attention, intervention and personal management. The time I documented below is in addition to time spent performing reported procedures but includes the following listed in this critical care notation. Medical Decision Making - Medical Records Medical records reviewed: Yes: I reviewed the patient's medical records. - Andrea Inquiry Pt receiving controlled substance: No Vital Signs: 01/30/21 01:38 Temperature 98.2 F Temperature Source Oral Pulse Rate [Right] 88 Respiratory Rate 18 Blood Pressure [Right Arm] 144/78 H Blood Pressure Mean [Right Arm] 100 02 Sat by Pulse Oximetry 99 Oxygen Delivery Method Room Air - Lab Data Lab results reviewed: Yes: I reviewed the patient's lab results. - CT Data CT Scan: Other (orbits) Time Received: 05:[address] Reviewed: Yes: I have viewed the radiologist's interpretation Preliminary Findings: Normal/NAD Medical Decision Narrative: see dr anisa overton for close f/u Eye Problem HPI - General Chief complaint: Eye Problems Stated complaint: poked sewing needle in right eye Time Seen by Provider: 01/30/21 02:00 Mode of Arrival: Family Vehicle Source of Information: Patient, Medical Record Limitations: No Limitations Description of Symptoms (Recalled from ER Triage Doc. by RN): Pt states he accidently poked his R eye with a needle as he bent over while sewing. 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 Pt reports blurry vision and stinging and burning painful sensation to R eye. Redness noted to R eye lids and sclera. Of note, pt was seen at [facility] in [place] yesterday for Left eye pain after getting debris into it. R 20/50, L 20/200 on vision exam. Pt reports a hx of cataracts and is supposed to wear glasses at night, however they are broken at this time. - History of Present Illness HPI Narrative: possible rt eye toucch with sewing needle - sl pain - no visual loss - MD chief complaint: eye injury Onset (ago): hour(s) Onset description: sudden Location: right eye Eye Symptoms: foreign body sensation, blurry vision Place: home Mechanism: direct trauma Severity: moderate Associated symptoms: none - Related Data Patient tetanus UTD: Yes Home Medications Medication Instructions Recorded Confirmed ARIPiprazole [Aripiprazole] 5 mg PO DAILY 07/18/20 07/18/20 Budesonide [Budesonide EC] 9 mg PO DAILY 07/18/20 07/18/20 Cetirizine HCl 10 mg PO DAILY 07/18/20 07/18/20 Duloxetine HCl [Cymbalta] 60 mg PO BID 07/18/20 07/18/20 Esomeprazole Magnesium 40 mg PO DAILY 07/18/20 07/18/20 Gabapentin [Neurontin 800mg Tab] 1,200 mg PO QID 07/18/20 07/18/20 Previous Rx's Medication Instructions Recorded clindamycin HCL [Clindamycin HCl] 300 mg PO TID #21 cap 10/24/20 levoFLOXacin [Levaquin 500mg 500 mg PO DAILY #7 tab 10/24/20 tab] predniSONE [Prednisone 20mg 20 mg PO BID #10 tab 10/24/20 Tab] Allergies Allergy/AdvReac Type Severity Reaction Status Date / Time cephalexin [From KEFLEX] Allergy Unknown ITCHING Verified 07/17/20 23:14 morphine [MORPHINE] Allergy Unknown HEADACHE Verified 07/17/20 23:14 sulfamethoxazole Allergy Unknown BREATHING Verified 07/17/20 23:14 [From BACTRIM] trimethoprim [From BACTRIM] Allergy Unknown BREATHING Verified 07/17/20 23:14 [facility] History - Hepatitis A Screen Drug use history?: No High risk sexual beh
[2021-01-30 05:20] VITALS: BP 144/97; PULSE 87; RESP 16; TEMP 36.8; O2SAT 99
== END 2021-01-30 05:24 | disposition home or self-care (01) ==
PROVIDERS: Emergency Provider Emergency Medicine
DX: S05.91XA Unspecified injury of right eye and orbit, initial encounter (principal); W22.8XXA Striking against or struck by other objects, initial encounter; Y92.89 Other specified places as the place of occurrence of the external cause; F41.8 Other specified anxiety disorders; K21.9 Gastro-esophageal reflux disease without esophagitis; F17.210 Nicotine dependence, cigarettes, uncomplicated
CPT/HCPCS: 70480; 99282

== ENCOUNTER 2022-06-13 03:17 | Emergency (ER) | payer MEDICARE, MEDICAID, SELFPAY ==
[2022-06-13] VITALS (8 sets, daily range): BP systolic 108–168; BP diastolic 73–95; PULSE 67–74; RESP 18–22; TEMP 36.6–36.8; O2SAT 96–100; BMI 26.2
--- NOTE | 2022-06-13 03:08 | ECG_ITS ---
APPROVED REPORT Exam: Resting ECG HR:84 bpm ECG Measurements Heart Rate 84 AXES GA 174 P 74 QRSd 89 QRS 32 QT 348 T 74 QTc 389 Conclusion SINUS RHYTHM NORMAL ECG UNCONFIRMED REPORT Electronically signed by : Jeff Partida MD 06/13/2022 21:14:24
--- NOTE | 2022-06-13 03:22 | XR_ITS ---
PROCEDURE INFORMATION: Exam: XR Chest Exam date and time: 06/13/2022 3:50 AM Age: 42 years old Clinical indication: Sternal or substernal pain; Additional info: Cp protocol TECHNIQUE: Imaging protocol: Radiologic exam of the chest. Views: 1 view. COMPARISON: CR XR CHEST 2V 07/22/2020 2:42 AM FINDINGS: Lungs: Unremarkable. No consolidation. Pleural spaces: Unremarkable. No pleural effusion. No pneumothorax. Heart/Mediastinum: Unremarkable. No cardiomegaly. Bones/joints: Unremarkable. IMPRESSION: No acute findings.
--- NOTE | 2022-06-13 03:23 | PC.NURSE ---
Spoke with Adriana at poison control regarding inhalation of butane. Per Adriana, patient should be monitored for cardiac dysrhythmia's and have a cardiac workup with ekg, troponin, cbc, cmp, and given supplemental oxygen as needed. CP protocol started.
[2022-06-13 03:31] LABS: Basophils # 0.1 K/mm3 (0-0.2); Basophils % 0.8 % (0.1-2.0); Eosinophils # 0.2 K/mm3 (0.0-0.4); Eosinophils % 2.1 % (0.1-12.0); Hemoglobin 14.4 g/dL (14.1-18.0); Lymphocytes # 3.4 K/mm3 (0.7-4.5); Lymphocytes % 35.4 % (10-50); Mean Corpuscular HGB Conc 32.6 g/dL (31.8-35.4); Mean Corpuscular Hemoglobin 28.4 pg (27.0-31.2); Mean Corpuscular Volume 87.1 fl (80-94); Mean Platelet Volume 7.4 fl (7.4-10.4); Monocytes # 0.7 K/mm3 (0.1-1.0); Monocytes % 6.9 % (1.7-9.3); Neutrophils # 5.2 K/mm3 (1.8-7.8); Neutrophils % 54.8 % (37.0-80.0); Platelet Count 356 K/mm3 (142-424); Red Blood Count 5.06 M/mm3 (4.60-6.20); Red Cell Distribution Width 14.6 % (11.5-17.5); White Blood Count 9.6 K/mm3 (4.8-10.8)
[2022-06-13 03:37] LABS: Alanine Aminotransferase 18 U/L (12-78); Albumin Level 3.2 g/dl (3.5-5.0); Alkaline Phosphatase 116 U/L (38-126); Anion Gap 9.4 mEq/L (5-15); Aspartate Amino Transferase 27 U/L (17-59); Bilirubin,Indirect 0.3 mg/dL (0.0-0.9); Bilirubin,Total 0.3 mg/dl (0.2-1.3); Bilirubin,Unconjugated 0.4 mg/dL (0.0-1.1); Blood Urea Nitrogen 13 mg/dl (9-20); Calcium 8.1 mg/dl (8.4-10.2); Carbon Dioxide 25 mmol/L (22.0-30.0); Chloride 105 mmol/L (98-107); Creatinine Clearance Estimated 124 mL/min (50-200); Estimated Glomerular Filt Rate 92 ml/min (>60); GFR (African American) 111 ML/MIN (>60); Glucose 94 mg/dl (74-100); Magnesium 1.8 mg/dl (1.6-2.3); Potassium 3.4 mmoL/L (3.5-5.1); Sodium 136 mmol/L (136-145); Total Protein,Serum 5.8 g/dl (6.3-8.2)
[2022-06-13 03:51] LABS: NT Pro Brain Natriuretic Pep. < 11.1 pg/mL (0-125); Troponin I < 0.01 ng/ml (0.00-0.034)
--- NOTE | 2022-06-13 04:20 | PC.NURSE ---
Pt c/o headache. MD notified. IV ofirmev ordered.
--- NOTE | 2022-06-13 04:46 | PC.NURSE ---
Spoke with Adriana again at poison control. Per Adriana, patient should get a 2nd troponin drawn and if that remains negative he should be appropriate to be discharged home if he remains stable.
--- NOTE | 2022-06-13 04:53 | HMH.EDCP ---
Discharge Plan Disposition Patient Disposition: Home, Self-Care Prescriptions Prescriptions: No Action cetirizine 10 MG tablet 10 mg PO DAILY esomeprazole magnesium 40 MG capsule,delayed release(DR/EC) 40 mg PO DAILY budesonide 3 MG capsule,delayed,extend.release 9 mg PO DAILY aripiprazole 5 MG tablet 5 mg PO DAILY duloxetine 60 MG capsule,delayed release(DR/EC) 60 mg PO BID Referrals Follow up/Referrals: Provider,Referral, MD [Referring] - See instructions Clinical Impressions Clinical Impression: Atypical chest pain Instructions Patient Instructions: DI for Atypical Chest Pain Discharge ED Provider: Deana (ED)Olvin Chest Pain HPI General Chief Complaint: Chest Pain Stated Complaint: Inhalation Time Seen by Provider: 06/13/22 04:00 Mode of Arrival: EMS Source of Information: Patient, EMS and Medical Record Limitations: No Limitations Description of Symptoms (Recalled from ER Triage Doc. by RN): Pt arrives via ems. Per pt, roughly 1 hour ago he was working on some butane lamps and they were disassembled and began to malfunction. Pt c/o sudden onset chest pain, right arm pain and headache following inhaling the butane. History of Present Illness HPI narrative: exposed to butane lamp fumes and dev chest pain and stephanie WOODARD complaint: chest pain indicative of cardiac Onset (ago): hour(s) Duration: intermittent Activity at onset: during rest Pain location: left chest Severity: moderate Quality: sharp Risk Factors for CAD: Family Hx of CAD and Smoking Treatments prior to or on arrival for Cardiac Chest Pain: none ALVARO Score for Non-Stemi Age of Patient: 40-49 years old Heart Rate: 50-69 bpm Systolic Blood Pressure: 160-199 mmHg Serum Creatinine: 0.80-1.19 mg/dl CHF Killip Class: I-No CHF Other Risk Factors: None Non-Stemi Risk Score: 45 Risk Stratification: 1-108 = Low Risk Related Data Home Medications Medication Instructions Recorded Confirmed aripiprazole 5 mg tablet 5 mg PO DAILY MOOD 07/18/20 06/13/22 budesonide 3 mg 9 mg PO DAILY Breathing problems 07/18/20 06/13/22 capsule,delayed,extended release cetirizine 10 mg tablet 10 mg PO DAILY Allergy symptoms 07/18/20 06/13/22 duloxetine 60 mg capsule,delayed 60 mg PO BID MOOD 07/18/20 06/13/22 release esomeprazole magnesium 40 mg 40 mg PO DAILY GERD 07/18/20 06/13/22 capsule,delayed release Allergies Allergy/AdvReac Type Severity Reaction Status Date / Time cephalexin [From KEFLEX] Allergy Unknown ITCHING Verified 07/17/20 23:14 morphine [MORPHINE] Allergy Unknown HEADACHE Verified 07/17/20 23:14 sulfamethoxazole Allergy Unknown BREATHING Verified 07/17/20 23:14 [From BACTRIM] trimethoprim [From BACTRIM] Allergy Unknown BREATHING Verified 07/17/20 23:14 [facility] Disclaimer: The information contained in this section may have been updated after the patient was seen, as this information can be updated by other users. Social History Smoking Status: Current every day smoker tobacco type: cigarettes packs per day: 1 alcohol intake: never substance use type: heroin current occupational status: unemployed Travel in the last 8 weeks: None ROS Obtained: Yes All systems reviewed & no additional complaints except as documented Physical Exam General General appearance: alert Head Head exam: normocephalic Eye Eye exam: Present PERRL and EOMI ENT ENT exam: Present mucous membranes moist Neck Neck exam: Present trachea midline Respiratory Respiratory exam: Present normal lung sounds bilaterally; Absent respiratory distress Cardiovascular Cardiovascular exam: Present regular rate; Absent systolic murmur Abdominal Exam Abdominal exam: Present soft; Absent tenderness or guarding Extremities Exam Extremities exam: Present full ROM Neurological Exam Neurological exam: Present alert, oriented X3 and CN II-XII intact; Absent motor sensory deficit Psychiatric Psychiatric exam: Pre
[2022-06-13 06:42] LABS: Troponin I < 0.01 ng/ml (0.00-0.034)
== END 2022-06-13 07:11 | disposition home or self-care (01) ==
PROVIDERS: Emergency Provider Emergency Medicine; PCP Nurse Practitioner
DX: R07.89 Other chest pain (principal); R51.9 Headache, unspecified; M79.601 Pain in right arm; T59.891A Toxic effect of other specified gases, fumes and vapors, accidental (unintentional), initial encounter; F17.210 Nicotine dependence, cigarettes, uncomplicated
CPT/HCPCS: 71045; 80048; 80076; 83735; 83880; 84484; 85025; 93005; 96374; 99285; J0131

== ENCOUNTER → 2022-10-09 12:00 | Outpatient (CLI) | payer MEDICARE, MEDICAID, SELFPAY ==
[2022-10-09 19:37] LABS: Alanine Aminotransferase 13 U/L (12-78); Albumin Level 3.6 g/dl (3.5-5.0); Albumin/Globulin Ratio 1.4 (1.1-1.8); Alkaline Phosphatase 143 U/L (38-126); Anion Gap 11.1 mEq/L (5-15); Aspartate Amino Transferase 24 U/L (17-59); Bilirubin,Total 0.3 mg/dl (0.2-1.3); Blood Urea Nitrogen 10 mg/dl (9-20); Calcium 8.9 mg/dl (8.4-10.2); Carbon Dioxide 31 mmol/L (22.0-30.0); Chloride 100 mmol/L (98-107); Chol/HDL Ratio 4.1 (1-3.5); Cholesterol 141 mg/dl (140-200); Estimated Glomerular Filt Rate 92 ml/min (>60); GFR (African American) 111 ML/MIN (>60); Globulin 2.5 g/dL (1.3-3.2); Glucose 79 mg/dl (74-100); HDL Cholesterol 34 mg/dl (40-60); Potassium 4.1 mmoL/L (3.5-5.1); Sodium 138 mmol/L (136-145); Total Protein,Serum 6.1 g/dl (6.3-8.2); Triglycerides 161 mg/dl (30-150); VLDL Cholesterol 32 mg/dL (0-40)
[2022-10-09 19:48] LABS: Direct LDL Cholesterol 77.51 mg/dL (100-129)
[2022-10-09 20:24] LABS: Vitamin B12 252 pg/mL (239-931)
[2022-10-09 23:03] LABS: Hemoglobin A1C 5.6 % (4.0-6.0)
== END ==
PROVIDERS: PCP Nurse Practitioner; Visit Provider Nurse Practitioner
DX: E53.8 Deficiency of other specified B group vitamins (principal); E78.1 Pure hyperglyceridemia; I10 Essential (primary) hypertension; R73.03 Prediabetes; R07.2 Precordial pain
CPT/HCPCS: 80053; 80061; 82607; 83036

== ENCOUNTER → 2022-12-24 09:28 | Outpatient (CLI) | payer MEDICARE, MEDICAID, SELFPAY ==
[2022-12-26 08:20] LABS: HIV Screen 4th Generation wRfx Non Reactive (Non Reactive)
[2022-12-26 11:13] LABS: Rapid Plasma Reagin Ab Titer Non Reactive titer (NonRea<1:1)
[2022-12-26 12:13] LABS: HBsAg Screen Negative (Negative); HCV Ab Non Reactive (Non Reactive); Hep A Ab, IGM Negative (Negative); Hep B Core Ab, IgM Negative (Negative)
[2022-12-27 08:02] LABS: Neisseria gonorrhoeae, NAA Negative (Negative)
[2022-12-30 09:28] LABS: Trichomonas Vaginalis, NAA Negative
== END ==
PROVIDERS: PCP Nurse Practitioner; Visit Provider Nurse Practitioner
DX: R10.12 Left upper quadrant pain (principal); Z11.3 Encounter for screening for infections with a predominantly sexual mode of transmission; D40.8 Neoplasm of uncertain behavior of other specified male genital organs; Z11.4 Encounter for screening for human immunodeficiency virus [HIV]; Z20.2 Contact with and (suspected) exposure to infections with a predominantly sexual mode of transmission; R39.11 Hesitancy of micturition; Z72.51 High risk heterosexual behavior
CPT/HCPCS: 80074; 86593; 86703; 87491; 87591; 87661; G0432

== ENCOUNTER 2023-07-01 19:27 | Emergency (ER) | payer MEDICARE, MEDICAID, SELFPAY ==
[2023-07-01 19:29] VITALS: BP 150/96; PULSE 82; RESP 16; TEMP 36.8; O2SAT 97; BMI 25.8
--- NOTE | 2023-07-01 19:45 | XR_ITS ---
PROCEDURE INFORMATION: Exam: XR Chest Exam date and time: 07/01/2023 7:40 PM Age: 43 years old Clinical indication: Pain; Shortness of breath; Chest pressure; Additional info: Chest pressure, SOA TECHNIQUE: Imaging protocol: Radiologic exam of the chest. Views: 2 views. COMPARISON: CR XR CHEST PORTABLE 06/13/2022 3:50 AM FINDINGS: Lungs: Unremarkable. No consolidation. Pleural spaces: Unremarkable. No pleural effusion. No pneumothorax. Heart/Mediastinum: Unremarkable. No cardiomegaly. Bones/joints: Unremarkable. IMPRESSION: No acute findings.
--- NOTE | 2023-07-01 19:51 | ED_ITS ---
Discharge Plan Disposition Patient Disposition: Home, Self-Care Prescriptions Prescriptions: No Action aspirin [Adult Low Dose Aspirin] 81 mg tablet,delayed release (DR/EC) 81 mg PO DAILY amitriptyline 25 mg tablet 25 mg PO HS ascorbic acid (vitamin C) 250 mg tablet 250 mg PO DAILY albuterol sulfate 2.5 mg /3 mL (0.083 %) solution for nebulization 2.5 mg inhalation Q4-6H PRN gabapentin 400 mg capsule 1,200 mg PO QID hydrochlorothiazide 25 mg tablet 25 mg PO DAILY epinephrine [EpiPen] 0.3 mg/0.3 mL auto-injector 0.3 mg IM Q4H PRN isosorbide mononitrate 30 mg tablet extended release 24 hr 30 mg PO DAILY tadalafil 20 mg tablet 20 mg PO DAILY PRN (Reason: sexual activity) Qty: 30 5RF Rx Instructions: administer approximately 30min before sexual activity; do not use more than 1 dose per 24hrs mometasone 0.1 % cream See Rx Instructions .ROUTE .COMPLEX Qty: 45 2RF Dose Instruction: APPLY TOPICALLY TO AFFECTED AREA 2 TIMES DAILY Rx Instructions: APPLY TOPICALLY TO AFFECTED AREA 2 TIMES DAILY diclofenac sodium 1 % gel 2 g topical QID Qty: 100 5RF Rx Instructions: apply to single elbow, wrist or hand; for hand includes palm/fingers/back of hand prednisone 20 mg tablet 20 mg PO .COMPLEX Qty: 15 0RF Rx Instructions: 20 mg orally BID x 5 days then daily x 5 days levofloxacin 500 mg tablet 500 mg PO Q24H Qty: 10 0RF albuterol sulfate 90 mcg/actuation HFA aerosol inhaler 2 puff inhalation Q6H PRN (Reason: shortness of breath or wheezing) Qty: 8.5 2RF cetirizine 10 mg tablet See Rx Instructions .ROUTE .COMPLEX Qty: 30 2RF Dose Instruction: Take 1 Tablet by mouth once daily. Rx Instructions: Take 1 Tablet by mouth once daily. aripiprazole 10 mg tablet See Rx Instructions .ROUTE .COMPLEX Qty: 30 5RF Dose Instruction: Take 1 Tablet by mouth once daily for mood. Rx Instructions: Take 1 Tablet by mouth once daily for mood. mesalamine 0.375 gram capsule,extended release 24hr 1.5 g PO DAILY Qty: 360 3RF budesonide 3 mg capsule,delayed,extend.release 9 mg PO DAILY 30 Days Qty: 90 2RF esomeprazole magnesium 40 MG capsule,delayed release(DR/EC) 40 mg PO DAILY duloxetine 60 MG capsule,delayed release(DR/EC) 60 mg PO BID Referrals Follow up/Referrals: Melonie Kent APRN [Primary Care Provider] - See instructions Clinical Impressions Clinical Impression: Left against medical advice, Chest pressure Discharge ED Provider: Tim Rm General Adult HPI General Chief complaint: PAIN Stated complaint: Chest congestion,SOA Time Seen by Provider: 07/01/23 19:32 Mode of Arrival: Ambulatory Source of Information: Patient Limitations: No Limitations Description of Symptoms (Recalled from ER Triage Doc. by RN): Pt presents to ER with complaints of lung discomfort hurt and burn . Denies any SOA, chest pain or being exposed to breathing any fumes or other particles. States he took a shower and it got worse and the rain today has also contributed as well. 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 Patient states that he st arted having chest pressure 5 or 6 days prior to this visit. No inciting event. Nothing particular makes it better or worse. Also has a host of other complaints including spot on his skin, intermittent abdominal pains, nausea. Patient appears nervous. Has not taken any medications for these symptoms. Please note that above description of symptoms, in this electronic medical record under categorization of recalled from ER triage doctor by RN are reflective of an initial nursing assessment, however, is not reflective of my full history and physical exam that was personally taken and clarified. Consequentially, this preceding description of symptoms, which may include the patient's categorized chief complaint in the EMR, do not reflect my personal clinical impression, and the ultimate description of history of present illness and patient stated complaints should be deferred to this section of the note. Unless stated otherwise or congruent with this section of the note, additional signs, symptoms, or incongruence should be interpreted as inaccurate with my clinical impression. Related Data Home Medications Medication Instructions Recorded Confirmed duloxetine 60 mg capsule,delayed 60 mg PO BID MOOD 07/18/20 05/26/23 release esomeprazole magnesium 40 mg 40 mg PO DAILY GERD 07/18/20 05/26/23 capsule,delayed release albuterol sulfate 2.5 mg/3 mL 2.5 mg inhalation Q4-6H PRN 10/09/22 05/26/23 (0.083 %) solution for nebulization amitriptyline 25 mg tablet 25 mg PO HS 10/09/22 05/26/23 ascorbic acid (vitamin C) 250 mg 250 mg PO DAILY 10/09/22 05/26/23 tablet aspirin 81 mg tablet,delayed 81 mg PO DAILY 10/09/22 05/26/23 release (Adult Low Dose Aspirin) epinephrine 0.3 mg/0.3 mL 0.3 mg IM Q4H PRN 10/09/22 05/26/23 injection, auto-injector (EpiPen) gabapentin 400 mg capsule 1,200 mg PO QID 10/09/22 05/26/23 hydrochlorothiazide 25 mg tablet 25 mg PO DAILY 10/09/22 05/26/23 isosorbide mononitrate 30 mg 30 mg PO DAILY 10/09/22 05/26/23 tablet,extended release 24 hr Previous Rx's Medication Instructions Recorded cetirizine 10 mg tablet See Rx Instructions .Route 11/13/22 .COMPLEX #30 tabs aripiprazole 10 mg tablet See Rx Instructions .Route 02/25/23 .COMPLEX #30 tabs diclofenac sodium 1 % topical gel 2 g topical QID #100 grams 02/26/23 mometasone 0.1 % topical cream See Rx Instructions .Route 02/26/23 .COMPLEX #45 grams tadalafil 20 mg tablet 20 mg PO DAILY PRN sexual activity 02/26/23 #30 tabs mesalamine 0.375 gram 1.5 g (4 x 0.375 gram) PO DAILY 03/25/23 capsule,extended release 24 hr #360 caps budesonide 3 mg 9 mg (3 x 3 mg) PO DAILY 30 days 04/07/23 capsule,delayed,extended release #90 ea albuterol sulfate 90 mcg/actuation 2 puff inhalation Q6H PRN 05/20/23 aerosol inhaler shortness of breath or wheezing #8.5 grams levofloxacin 500 mg tablet 500 mg PO Q24H #10 tabs 05/20/23 prednisone 20 mg tablet 20 mg PO .COMPLEX #15 tabs 05/20/23 Allergies Allergy/AdvReac Type Severity Reaction Status Date / Time cephalexin [From KEFLEX] Allergy Unknown ITCHING Verified 05/26/23 15:18 morphine [MORPHINE] Allergy Unknown HEADACHE Verified 05/26/23 15:18 sulfamethoxazole Allergy Unknown BREATHING Verified 05/26/23 15:18 [From BACTRIM] trimethoprim [From BACTRIM] Allergy Unknown BREATHING Verified 05/26/23 15:18 PFSH [facility] Disclaimer: The information contained in this section may have been updated after the patient was seen, as this information can be updated by other users. Medical History Shortness of breath Xeroderma Erectile dysfunction Benign neoplasm of skin of left arm Neoplasm of uncertain behavior of penis Pulmonary hypertension Urinary hesitancy Vitamin B12 deficiency Prediabetes Hypertriglyceridemia Essential hypertension Surgical History History of ankle surgery History of eye surgery Social History Smoking Status: Current every day smoker tobacco type: cigarettes packs per day: 1 alcohol intake: never substance use type: heroin current occupational status: disabled Travel in the last 8 weeks: Inside the [employer] ROS Obtained: Yes All systems reviewed & no additional complaints except as documented Physical Exam General General appearance: alert and in no apparent distress Head Head exam: atraumatic and normocephalic Eye Eye exam: Present normal appearance, PERRL and EOMI ENT ENT exam: Present mucous membranes moist Neck Neck exam: Present normal inspection, full ROM and trachea midline Chest Chest inspection: Present normal inspection Respiratory Respiratory exam: Present normal lung sounds bilaterally; Absent respiratory distress, wheezes, stridor, accessory muscle use or prolonged expiratory phase Cardiovascular Cardiovascular exam: Present regular rate and normal rhythm Abdominal Exam Abdominal exam: Present soft; Absent distention, tenderness, guarding, rebound or rigidity Extremities Exam Extremities exam: Absent edema Neurological Exam Neurological exam: Present alert, oriented X3, CN II-XII intact and normal gait; Absent motor sensory deficit Skin Skin exam: Present warm and dry; Absent diaphoresis or erythema Medical Decision Making Medical Records Medical records reviewed: Yes I reviewed the patient's medical records. Andrea Inquiry Pt receiving controlled substance: No Andrea was queried for this patient: No Vital Signs: 07/01/23 19:29 07/01/23 20:21 07/01/23 20:22 Temperature 98.3 F 98.3 F 98.6 F Temperature Source Oral Oral Pulse Rate 80 0 L Pulse Rate [Left] 82 Respiratory Rate 16 16 0 L Blood Pressure 150/96 H 000/00 L Blood Pressure [Right Arm] 150/96 H Blood Pressure Mean [Right Arm] 114 Blood Pressure Source Automatic Cuff Blood Pressure Source [Right Arm] Automatic Cuff Blood Pressure Position Sitting 02 Sat by Pulse Oximetry 97 Oxygen Delivery Method Room Air Room Air Room Air Lab Data Lab Results 07/01/23 20:00: Urine Opiates Screen Negative, Urine Methadone Screen Negative, Ur Barbituates Screen Negative, Ur Phencyclidine Scrn Negative, Ur Amphetamines Screen TNP, U Benzodiazepines Scrn Negative, Urine Cocaine Screen Negative, U Marijuana (THC) Screen Negative Orders (Tests/Meds): ED MEDICATIONS Discontinued Medications Generic Name Dose Route Start Last Admin Trade Name Bradenq PRN Reason Stop Dose Admin Acetaminophen 1,000 mg 07/01/23 19:46 07/01/23 19:55 Acetaminophen 500mg Tab PO 07/01/23 19:47 1,000 mg ONCE ONE Administration Ketorolac Tromethamine 15 mg 07/01/23 19:46 07/01/23 19:55 Ketorolac 30mg/Ml Vial IV 07/01/23 19:47 15 mg ONCE ONE Administration ORDERS Category Date Time Status CXR 2 view (NOT portable) [XR chest 2V] Stat Exams 07/01/23 19:45 Completed UDS [Drug Screen,Urine] Stat Lab 07/01/23 20:00 Completed Medical Decision Narrative: 43-year-old male history of hypertension, 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 Patient states that he started having chest pressure 5 or 6 days prior to this visit. No inciting event. Nothing particular makes it better or worse. Also has a host of other complaints including spot on his skin, intermittent abdominal pains, nausea. Patient appears nervous. Has not taken any medications for these symptoms. History was obtained via conversation with patient. On arrival, patient hemodynamically stable, alert, oriented x4, appropriate, GCS 15, moving all extremities spontaneously, pupils equal and reactive to light. Full physical exam performed and significant for patient appears nervous, but very well. Lung s are cardiac exam within normal limits. Vital signs stable, overall unremarkable exam. Differential includes anxiety, bronchitis, pneumonia, reactive airway disease, COPD, coronary artery spasm, esophageal spasm, ACS, [place], among others. Chest x-ray was obtained, independently interpreted and unremarkable for any acute cardiopulmonary space disease. EKG independently interpreted sinus rhythm 77 beats a minute no ST or T wave changes concerning for acute schema. RI, QRS, QT intervals within normal limits. Prior to labs and imaging, patient left AMA. The patient left AGAINST MEDICAL ADVICE after a thorough discussion of the risks of doing so, including a discussion of potential alternative plans. These risks include but are not limited to clinical decompensation, prison disability and . The patient appears capable of making this decision. I have advised the patient to immediately return if there are any further problems or if they change their mind about seeking further care. Critical Care Critical Care Time Critical Care Time: No
[2023-07-01] MEDS: KETOROLAC 30MG/ML VIAL 15 MG IV (19:55)
[2023-07-01] MEDS: ACETAMINOPHEN 500MG TAB 1000 MG PO (19:55)
--- NOTE | 2023-07-01 20:04 | ECG_ITS ---
APPROVED REPORT Exam: Resting ECG HR:77 bpm ECG Measurements Heart Rate 77 AXES TX 141 P 68 QRSd 90 QRS 24 QT 343 T 57 QTc 375 Conclusion SINUS RHYTHM NORMAL ECG UNCONFIRMED REPORT Electronically signed by : EVANGELISTA DENT, 07/01/2023 22:46:09
[2023-07-01 20:21] VITALS: BP 150/96; PULSE 80; RESP 16; TEMP 36.8; O2SAT 98
[2023-07-01 20:22] VITALS: BP 000/00; PULSE 0; RESP 0; TEMP 37; O2SAT 0
[2023-07-01 20:31] LABS: Barbiturates Screen,Urine Negative ng/ml (<200); Benzodiazepines Screen,Urine Negative ng/ml (<200)
[2023-07-01 20:32] LABS: Cannabinoid Screen,Urine Negative ng/ml (<50)
[2023-07-01 20:33] LABS: Cocaine Screen,Urine Negative ng/ml (<300); Methadone Screen,Urine Negative ng/ml (<300)
[2023-07-01 20:34] LABS: Phencyclidine Screen,Urine Negative ng/ml (<25)
[2023-07-01 20:35] LABS: Opiate Screen,Urine Negative ng/ml (<300)
[2023-07-05 11:47] LABS: Amphetamine Positive; Amphetamine (GC/MS) >3000; Amphetamines Positive; Methamphetamine Positive
[2023-07-05 11:48] LABS: Methamphetamine (GC/MS) >3000
== END 2023-07-01 20:22 | disposition home or self-care (01) ==
PROVIDERS: Emergency Provider Emergency Medicine; PCP Nurse Practitioner
DX: R07.9 Chest pain, unspecified (principal); F15.90 Other stimulant use, unspecified, uncomplicated; M79.18 Myalgia, other site
CPT/HCPCS: 71046; 80307; 80324; 93005; 96374; 99284; G0480

== ENCOUNTER 2023-08-19 11:05 | Outpatient (CLI) | payer MEDICARE, MEDICAID, SELFPAY ==
[2023-08-19 19:00] LABS: Basophils # 0.1 K/mm3 (0-0.2); Basophils % 0.5 % (0.1-2.0); Eosinophils # 0.2 K/mm3 (0.0-0.4); Eosinophils % 1.6 % (0.1-12.0); Hematocrit 47.1 % (42.0-52.0); Hemoglobin 15.3 g/dL (14.1-18.0); Lymphocytes # 2.1 K/mm3 (0.7-4.5); Lymphocytes % 17.8 % (10-50); Mean Corpuscular HGB Conc 32.6 g/dL (31.8-35.4); Mean Corpuscular Hemoglobin 29.9 pg (27.0-31.2); Mean Corpuscular Volume 91.6 fl (80-94); Mean Platelet Volume 8.6 fl (7.4-10.4); Monocytes # 0.9 K/mm3 (0.1-1.0); Monocytes % 7.6 % (1.7-9.3); Neutrophils # 8.4 K/mm3 (1.8-7.8); Neutrophils % 72.4 % (37.0-80.0); Platelet Count 293 K/mm3 (142-424); Red Blood Count 5.14 M/mm3 (4.60-6.20); White Blood Count 11.6 K/mm3 (4.8-10.8)
[2023-08-19 19:40] LABS: Alanine Aminotransferase 22 U/L (12-78); Albumin Level 3.7 g/dl (3.5-5.0); Albumin/Globulin Ratio 1.5 (1.1-1.8); Alkaline Phosphatase 127 U/L (38-126); Aspartate Amino Transferase 27 U/L (17-59); Bilirubin,Total 0.2 mg/dl (0.2-1.3); Blood Urea Nitrogen 14 mg/dl (9-20); Calcium 9.4 mg/dl (8.4-10.2); Carbon Dioxide 27 mmol/L (22.0-30.0); Chloride 103 mmol/L (98-107); Estimated Glomerular Filt Rate 81 ml/min (>60); GFR (African American) 98 ML/MIN (>60); Globulin 2.5 g/dL (1.3-3.2); Glucose 81 mg/dl (74-100); Sodium 139 mmol/L (136-145); Total Protein,Serum 6.2 g/dl (6.3-8.2)
[2023-08-19 19:51] LABS: Anion Gap 13.3 mEq/L (5-15); Potassium 4.3 mmoL/L (3.5-5.1)
[2023-08-19 20:01] LABS: Creatinine,Urine Random 152 mg/dL (Not Estab.); Microalbumin < 6.000 mg/L (0-16.7)
[2023-08-19 20:09] LABS: Hemoglobin A1C 5.8 % (4.0-6.0)
[2023-08-19 20:28] LABS: Vitamin B12 337 pg/mL (239-931)
[2023-08-20 10:35] LABS: Thyroid Stimulating Hormone 1.24 uIU/mL (0.465-4.68)
== END 2023-08-19 23:59 | disposition home or self-care (01) ==
LOC: LAB.DROPOF 08-20 11:07
PROVIDERS: PCP Nurse Practitioner; Visit Provider Nurse Practitioner
DX: K50.90 Crohn's disease, unspecified, without complications (principal); I10 Essential (primary) hypertension; E78.1 Pure hyperglyceridemia; R73.03 Prediabetes; E53.8 Deficiency of other specified B group vitamins; F17.210 Nicotine dependence, cigarettes, uncomplicated
CPT/HCPCS: 80050; 80053; 82043; 82570; 82607; 83036; 84443; 85025

== ENCOUNTER 2023-12-31 12:15 | Outpatient (CLI) | payer MEDICARE, MEDICAID, SELFPAY ==
[2023-12-31 19:41] LABS: HIV (1&2) Antibody Rapid NONREACTIVE (NONREACTIVE)
[2024-01-02 07:24] LABS: HBsAg Screen Negative (Negative); HCV Ab Non Reactive (Non Reactive); Hep A Ab, IGM Negative (Negative); Hep B Core Ab, IgM Negative (Negative)
== END 2023-12-31 23:59 | disposition home or self-care (01) ==
LOC: LAB.DROPOF 01-01 15:29
PROVIDERS: PCP Nurse Practitioner; Visit Provider Nurse Practitioner
DX: Z11.3 Encounter for screening for infections with a predominantly sexual mode of transmission (principal); A60.00 Herpesviral infection of urogenital system, unspecified
CPT/HCPCS: 80074; 87389

== ENCOUNTER 2024-05-05 15:40 | Outpatient (CLI) | payer MEDICARE, MEDICAID, SELFPAY ==
[2024-05-05 19:17] LABS: Basophils % 0.3 % (0.1-2.0); Eosinophils % 0.1 % (0.1-12.0); Hematocrit 43.1 % (42.0-52.0); Hemoglobin 14.6 g/dL (14.1-18.0); Lymphocytes # 1.2 K/mm3 (0.7-4.5); Lymphocytes % 8.5 % (10-50); Mean Corpuscular HGB Conc 33.9 g/dL (31.8-35.4); Mean Corpuscular Hemoglobin 29.9 pg (27.0-31.2); Mean Corpuscular Volume 88.1 fl (80-94); Mean Platelet Volume 10.3 fl (7.4-10.4); Monocytes # 0.7 K/mm3 (0.1-1.0); Monocytes % 4.9 % (1.7-9.3); Neutrophils % 84.7 % (37.0-80.0); Platelet Count 524 K/mm3 (142-424); Red Blood Count 4.89 M/mm3 (4.60-6.20); Red Cell Distribution Width 14.2 % (11.5-17.5); White Blood Count 14.2 K/mm3 (4.8-10.8)
[2024-05-05 19:35] LABS: Albumin Level 3.7 g/dl (3.5-5.0); Chloride 106 mmol/L (98-107); Sodium 136 mmol/L (136-145)
[2024-05-05 19:38] LABS: Alanine Aminotransferase 21 U/L (12-78); Albumin/Globulin Ratio 1.7 (1.1-1.8); Alkaline Phosphatase 123 U/L (38-126); Aspartate Amino Transferase 24 U/L (17-59); Bilirubin,Total 0.3 mg/dl (0.2-1.3); Blood Urea Nitrogen 14 mg/dl (9-20); Cholesterol 135 mg/dl (140-200); Estimated Glomerular Filt Rate 122 ml/min (>60); GFR (African American) 148 ML/MIN (>60); Globulin 2.2 g/dL (1.3-3.2); Total Protein,Serum 5.9 g/dl (6.3-8.2); Triglycerides 101 mg/dl (30-150); VLDL Cholesterol 20 mg/dL (0-40)
[2024-05-05 19:39] LABS: Calcium 8.7 mg/dl (8.4-10.2); Chol/HDL Ratio 3.2 (1-3.5); Glucose 106 mg/dl (74-100); HDL Cholesterol 42 mg/dl (40-60)
[2024-05-05 19:58] LABS: Direct LDL Cholesterol 77.67 mg/dL (100-129)
[2024-05-05 20:12] LABS: Thyroid Stimulating Hormone 2.04 uIU/mL (0.465-4.68)
[2024-05-05 20:30] LABS: Carbon Dioxide 25 mmol/L (22.0-30.0)
[2024-05-05 20:38] LABS: Hemoglobin A1C 5.6 % (4.0-6.0)
[2024-05-05 20:56] LABS: 25-OH Vitamin D, Total 25.3 ng/mL (30-100)
[2024-05-05 22:29] LABS: Prostate Specific Ag Screen 0.7 ng/ml (0.0-4.0)
[2024-05-05 22:52] LABS: Vitamin B12 > 1000 pg/mL (239-931)
== END 2024-05-05 23:59 | disposition home or self-care (01) ==
LOC: LAB.DROPOF 05-06 10:25
PROVIDERS: PCP Nurse Practitioner; Visit Provider Nurse Practitioner
DX: E53.8 Deficiency of other specified B group vitamins (principal); I10 Essential (primary) hypertension; E78.1 Pure hyperglyceridemia; R73.03 Prediabetes; K50.90 Crohn's disease, unspecified, without complications; Z12.5 Encounter for screening for malignant neoplasm of prostate
CPT/HCPCS: 80053; 80061; 82306; 82607; 83036; 84443; 85025; G0103

== ENCOUNTER 2024-11-19 19:53 | Emergency (ER) | payer MEDICARE, MEDICAID, SELFPAY ==
--- OUTSIDE RECORDS SUMMARY | 2021-11-06 13:45 | XMS_ITS | Continuity of Care Document ---
Author Organization [facility] Address [address] [place] [address] Phone Care Team Providers Care Garment Examiner Name Role Phone Chele Martinez MD Unavailable Unavailable Allergies, Adverse Reactions, Alerts Substance Reaction Status Criticality FLUOXETINE HCL Hallucinations(severe) Active No Information trimethoprim Difficulty breathing(moderate) Active No Information sulfamethoxazole Difficulty breathing(moderate) Active No Information morphine Difficulty breathing(mild) Active N o Information Medications Medication Instructions Dosage Effective Dates (start - stop) Status Comments Inveltys 1 % eye drops,suspension instill 1 drop by ophthalmic route 2 times every day into the LEFT eye - Active Patient has a coupon. moxifloxacin 0.5 % eye drops instill 1 drop by ophthalmic route 2 times every day into the operative eye - Active Prolensa 0.07 % eye drops instill 1 drop by ophthalmic route once every day into the LEFT eye - Active OK to substitute Bromsite or Ilevro Nexium 40 mg capsule,delayed release take 1 capsule by oral route every day 40 MG - Active Cymbalta 20 mg capsule,delayed release take 1 capsule by oral route 2 times every day - Active cetirizine 10 mg tablet take 1 tablet by oral route every day 10 MG - Active budesonide DR - ER 3 mg capsule,delayed,ext ended release take 3 capsule by oral route every day in the morning for up to 8 weeks 9 MG - Active Abilify 5 mg tablet take 1 tablet by oral route every day 5 MG - Active Chantix 1 mg tablet take 1 tablet by oral route every day with glass of water after meals 1 MG - Active Pentasa 500 mg capsule,controlled release take 2 capsule by oral route 4 times every day 1000 MG - Active gabapentin 800 mg tablet take 1.5 tablet by oral route 4 times every day 1200 MG - Active Procedures Procedure Date Ophthalmic Biometry W Iol Calculation Un ilateral Refraction No Charge [facility]NEAL TOPOGRAPHY OFFICE/OUTPATIENT VISIT, NEW Advance Directives Directive Yes / No Effective Date File Name No Information Encounters Encounter Description Practice Location Reason(s) For Visit Diagnoses Date Provider Providers Copied on Encounter [facility] , [address], [place], [facility], tel:[phone] [facility] No Information [facility]. [address] [place] [address], [address], [place], [place], [id number]. tel:[phone] [facility] , [address], [place], [facility], tel:[phone] [facility] No Information [facility]. [address] [place] [address], [address], [place], [place], [id number]. tel:[phone] OFFICE/OUTPATI ENT VISIT, [facility] , [address] [place], [address], tel:[phone] [facility] cataract consult (chief complaint) Posterior subcapsular polar senile cataract of both eyesEsotropia , left eye [facility]. [address] [place] [address], [address], [place], [place], [id number]. tel:[phone] Specialist: [address], [place], [address]. tel:[phone] ring Provider: [address], [place], [address]. tel:[phone] Family History Family Member Type Diagnosis Age At Onset Paternal Grandmother Problem (finding) Hypertension Problem No family histor y of Macular degeneration Paternal Grandmother Problem (finding) Cataracts Problem No family history of Glaucom a Problem No family histor y of Retinal disease Maternal aunt Problem malignant melanoma Paternal Grandmother Problem (finding) High cholestero l Father Problem (finding) Hypertension Problem No family histor y of Diabetes mellitus Father Problem (finding) Cataracts Payers Payer name Insurance type Covered alliance party ID Authorhanane partida(s) Danny Medicare [id number] Medicaid [facility] [id number] Social History Type Description Quantity Date Captured Comments Alcohol Use Details Unknown Caffeine Use Details Unknown Tobacco Use Status No Information Smoking Status No Information Sex Male Chief Complaint And Reason For Visit No Information Reason For Referral Reason For Referral No Information Plan Of Treatment Date Type Action Status Goal Tobacco cessation counseling completed History Of Present Illness Encounter Date Complaint History Of Prese nt Illness cataract consult The 41 year old male presents for evaluation of cataract consult in the right and left eyes. Pt states VA OS suddenly got blurry about a year and a half ago. Pt states that his VA OS has gotten blurrier since then. Pt states his VA OD is alright but it is a little blurry at a distance. Pt states he has eye pain when he strains to focus. Pt states he has been seeing red dots in his vision for about 5 months now. Pt has a couple floaters OS and has had them for about 8 months. Pt has constant double vision for 12 years. Pt has severe glare and some light sensitivity. Pt used to have bad headaches but he hasn't had one in 6-7months. Glaucoma FHx: noneMeds: None(-) History of Weak or lazy eye (-) Flomax (tamsulosin) use (+) Eye trauma: metal in eye 3 years ago (-) Diabetes(-) Blood thinners(-) Prior LASIK/PRK or CTL wear(-) Trouble lying flat, neck issues, Claustrophobia(-) Trouble breathing(-) Tremor Functional Status Date Functional Assessmen t No Information Instructions Date Instruction Additional Infor mation Impression/Plan Impression/Plan Assessments Type Assessment Date No Information Patient Care Teams Name Effective Dates (start - stop) Status Members No Information
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
--- NOTE | 2024-11-19 19:49 | ECG_ITS ---
APPROVED REPORT Exam: Resting ECG HR:84 bpm ECG Measurements Heart Rate 84 AXES DC 161 P 74 QRSd 102 QRS 15 QT 359 T 52 QTc 400 Conclusion SINUS RHYTHM NORMAL ECG UNCONFIRMED REPORT Normal sinus rhythm. No ST elevation or depression. QTc normal at 400 Electronically signed by : SHEY KNIGHT, 11/19/2024 23:17:52
--- NOTE | 2024-11-19 19:54 | [facility].EDCP ---
Discharge Plan Disposition Patient Disposition: Home, Self-Care Prescriptions Prescriptions: No Action aspirin [Adult Low Dose Aspirin] 81 mg tablet,delayed release (DR/EC) 81 mg PO DAILY ascorbic acid (vitamin C) 250 mg tablet 250 mg PO DAILY valacyclovir 500 mg tablet 500 mg PO BID Qty: 180 1RF fluticasone propionate 50 mcg/actuation spray,suspension 1 spray intranasal DAILY Qty: 16 2RF Rx Instructions: administer into each nostril nitroglycerin 0.4 mg tablet, sublingual buccal Patient Comments: DISSOLVE 1 TABLET UNDER THE TONGUE NEEDED FOR CHEST PAIN. REPEAT EVERY 5 MINUTES 3 TIMES. IF NO RELIEF GO TO ER. diclofenac sodium 1 % gel 2 g topical QID Qty: 100 5RF Rx Instructions: apply to single elbow, wrist or hand; for hand includes palm/fingers/back of hand varenicline tartrate 1 mg tablet 1 mg PO BID Patient Comments: TAKE 1 TABLET BY MOUTH TWICE DAILY. ondansetron HCl 4 mg tablet 4 mg PO Q8H PRN (Reason: nausea and vomiting) Qty: 20 0RF chlorthalidone 25 mg tablet 25 mg PO DAILY Qty: 30 2RF epinephrine [EpiPen] 0.3 mg/0.3 mL auto-injector 0.3 mg IM Q4H PRN (Reason: anaphylaxis) Qty: 2 1RF amoxicillin 500 mg tablet 500 mg PO BID 10 Days Qty: 20 0RF gabapentin 800 mg tablet 800 mg PO QID Patient Comments: TAKE 1 & 1/2 TABLETS BY MOUTH 4 TIMES A DAY FOR 30 DAYS ibuprofen 800 mg tablet 800 mg PO Q8H PRN (Reason: pain) Qty: 60 1RF tadalafil 20 mg tablet See Rx Instructions .ROUTE .COMPLEX Qty: 30 5RF Dose Instruction: TAKE 1 TABLET BY MOUTH 30 MINUTES BEFORE SEXUAL ACTIVITY. DO NOT USE MORE THAN 1 TABLET PER 24 HOURS Rx Instructions: TAKE 1 TABLET BY MOUTH 30 MINUTES BEFORE SEXUAL ACTIVITY. DO NOT USE MORE THAN 1 TABLET PER 24 HOURS mometasone 0.1 % cream See Rx Instructions .ROUTE .COMPLEX Qty: 45 2RF Dose Instruction: APPLY TOPICALLY TO AFFECTED AREA 2 TIMES DAILY Rx Instructions: APPLY TOPICALLY TO AFFECTED AREA 2 TIMES DAILY cholecalciferol (vitamin D3) 125 mcg (5,000 unit) tablet 125 mcg PO DAILY Qty: 30 5RF albuterol sulfate 90 mcg/actuation HFA aerosol inhaler See Rx Instructions .ROUTE .COMPLEX Qty: 8.5 2RF Dose Instruction: Inhale 2 Puffs into the lungs every 6 hours as needed for shortness of breath or wheezing. Rx Instructions: Inhale 2 Puffs into the lungs every 6 hours as needed for shortness of breath or wheezing. duloxetine 60 mg capsule,delayed release(DR/EC) 60 mg PO DAILY Qty: 30 2RF aripiprazole [Abilify] 5 mg tablet 5 mg PO DAILY Qty: 30 2RF budesonide 3 mg capsule,delayed,extend.release See Rx Instructions .ROUTE .COMPLEX Qty: 90 2RF Dose Instruction: Take 3 Capsules by mouth once daily. Rx Instructions: Take 3 Capsules by mouth once daily. mesalamine 0.375 gram capsule,extended release 24hr 1.5 g PO DAILY Qty: 360 3RF dextroamphetamine-amphetamine [Adderall] 30 mg tablet 30 mg PO BID Qty: 60 0RF esomeprazole magnesium 40 MG capsule,delayed release(DR/EC) 40 mg PO DAILY Referrals Follow up/Referrals: Melonie Kent APRN [Primary Care Provider, Family Practice] - See instructions Activity Restrictions/Add. Instructions Additional Instructions/Restrictions: If you develop any new or worsening symptoms, or if you become concerned for your health for any reason, return to the emergency department for evaluation. I do encourage you to follow-up with your sr. social media & mobile manager in [place]. Clinical Impressions Clinical Impression: Chest pain Qualifiers: Chest pain type: precordial pain Qualified Code(s): R07.2 - Precordial pain Print Language Print Language: Hebrew Discharge ED Provider: Edgardo Feliz <ALAN Servin - Last Filed: 11/19/24 22:33> General Chief Complaint: Chest Pain Stated Complaint: Chest Pain Time Seen by Provider: 11/19/24 19:54 Mode of Arrival: Ambulatory Source of Information: Patient and Medical Record Limitations: No Limitations History of Present Illness HPI narrative: 44-year-old male presents to the emergency department with chest pain that is left substernal radiating to the left arm with associated numbness and tingling in the left arm, left side of the neck, as well as left lower extremity, patient states that the numbness and tingling has been waxing and waning since around 2 AM , last night, patient endorses insomnia, as well as drinking lots of liquid IV and peeing a lot today , patient denies any fever or chills, denies any trauma or injury per history, chest pain currently is a 1 out of 10, at maximal is at a 10 out of 10 , denies any shortness of breath currently, has had shortness of breath with these episodes today, chest pain started approximately 5 hours ago, it waxes and wanes, he denies any overt abdominal pain, no nausea no vomiting no lightheadedness, does admit to headache, this started around when the chest pain started denies any neck pain or radicular type symptomatology, denies any urinary bladder or bowel dysfunction, denies any saddle anesthesia or back pain, denies any constipation diarrhea denies any melena hematochezia hematemesis or hemoptysis, denies any urinary type symptomatology. Initial triage vitals are unremarkable. Patient denies any drug use or alcohol use, does endorse tobacco use (vapes). Other past medical history is consistent with ADHD, mood disorder, KELSEA, pulmonary hypertension, hyperlipidemia, neuropathy, prior history of amphetamine abuse, GERD, and Crohn's disease. Please note that above description of symptoms, in this electronic medical record under categorization of recalled from ER triage doctor by RN are reflective of an initial nursing assessment, however, is not reflective of my full history and physical exam that was personally taken and clarified. Consequentially, this preceding description of symptoms, which may include the patient's categorized chief complaint in the EMR, do not reflect my personal clinical impression, and the ultimate description of history of present illness and patient stated complaints should be deferred to this section of the note. Unless stated otherwise or congruent with this section of the note, additional signs, symptoms, or incongruence should be interpreted as inaccurate with my clinical impression. MD complaint: chest pain Onset (ago): hour(s) Duration: intermittent Pain location: substernal and left chest Severity scale (1-10): 1 Related Data Home Medications ?Medication ?Instructions ?Recorded ?Confirmed esomeprazole magnesium 40 mg 40 mg PO DAILY GERD 07/18/20 11/18/24 capsule,delayed release ascorbic acid (vitamin C) 250 mg 250 mg PO DAILY 10/09/22 11/18/24 tablet aspirin 81 mg tablet,delayed 81 mg PO DAILY 10/09/22 11/18/24 release (Adult Low Dose Aspirin) gabapentin 800 mg tablet 800 mg PO QID 11/25/23 11/18/24 nitroglycerin 0.4 mg sublingual mg buccal 03/19/24 11/18/24 tablet varenicline tartrate 1 mg tablet 1 mg PO BID 07/20/24 11/18/24 Previous Rx's ?Medication ?Instructions ?Recorded valacyclovir 500 mg tablet 500 mg PO BID #180 tabs 10/23/23 tadalafil 20 mg tablet See Rx Instructions .Route 01/26/24 .COMPLEX #30 tabs fluticasone propionate 50 1 spray intranasal DAILY #16 grams 02/17/24 mcg/actuation nasal spray,suspension diclofenac sodium 1 % topical gel 2 g topical QID #100 grams 03/19/24 mometasone 0.1 % topical cream See Rx Instructions .Route 03/22/24 .COMPLEX #45 grams cholecalciferol (vitamin D3) 125 125 mcg PO DAILY #30 tabs 05/06/24 mcg (5,000 unit) tablet albuterol sulfate 90 mcg/actuation See Rx Instructions .Route 06/02/24 aerosol inhaler .COMPLEX #8.5 grams ondansetron HCl 4 mg tablet 4 mg PO Q8H PRN nausea and 06/14/24 vomiting #20 tabs ibuprofen 800 mg tablet 800 mg PO Q8H PRN pain #60 tabs 08/10/24 aripiprazole 5 mg tablet (Abilify) 5 mg PO DAILY #30 tabs 08/21/24 duloxetine 60 mg capsule,delayed 60 mg PO DAILY #30 caps 08/21/24 release budesonide 3 mg See Rx Instructions .Route 09/15/24 capsule,delayed,extended release .COMPLEX #90 caps chlorthalidone 25 mg tablet 25 mg PO DAILY #30 tabs 09/20/24 epinephrine 0.3 mg/0.3 mL 0.3 mg (0.3 mL) IM Q4H PRN 09/20/24 injection, auto-injector (EpiPen) anaphylaxis #2 ea dextroamphetamine-amphetamine 30 30 mg PO BID #60 tabs 09/28/24 mg tablet (Adderall) mesalamine 0.375 gram 1.5 g (4 x 0.375 gram) PO DAILY 09/28/24 capsule,extended release 24 hr #360 caps amoxicillin 500 mg tablet 500 mg PO BID 10 days #20 tabs 11/18/24 Allergies Allergy/AdvReac Type Severity Reaction Status Date / Time bee venom protein (honey bee) Allergy Severe Anaphylaxis Verified 11/18/24 13:45 cephalexin (From KEFLEX) Allergy Unknown ITCHING Verified 11/18/24 13:45 morphine (MORPHINE) Allergy Unknown HEADACHE Verified 11/18/24 13:45 sulfamethoxazole (From Allergy Unknown BREATHING Verified 11/18/24 13:45 BACTRIM) trimethoprim (From BACTRIM) Allergy Unknown BREATHING Verified 11/18/24 13:45 [facility] <ALAN Servin - Last Filed: 11/19/24 22:33> [facility] Disclaimer: The information contained in this section may have been updated after the patient was seen, as this information can be updated by other users. 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 Pulmonary hypertension Urinary hesitancy Vitamin B12 deficiency Prediabetes Hypertriglyceridemia Essential hypertension Surgical History History of ankle surgery History of eye surgery Family History Grandmother Stroke Father Coronary artery disease Social History Smoking Status: Current every day smoker tobacco type: cigarettes packs per day: 1 alcohol intake: never substance use type: heroin current occupational status: disabled Travel in the last 8 weeks?: Inside the [place] Have you lived/traveled outside US in past 30 days?: No Contact w/someone who lives/traveled outside US past 30 days?: No Exposure to someone with infectious disease in past 14 days?: No Do you have a fever (greater than 100.4 F or 38 C)?: No Have you tested positive for COVID-19?: No Exposed to someone with COVID-19 in past 14 days?: No Do you have a sore throat?: No Do you have a cough?: No Do you have any weakness?: No Do you have any diarrhea?: No Are you experiencing any unusual bleeding?: No Do you have any muscle aches/pain?: No Do you have any abdominal pain?: No Are you experiencing loss of taste or smell?: No Other Medical History Have you received the Flu Vaccine for this season: No Have you received the Pneumonia Vaccine: No <ALAN Servin - Last Filed: 11/19/24 22:33> ROS Obtained: Yes All systems reviewed & no additional complaints except as documented Physical Exam <ALAN Servin - Last Filed: 11/19/24 22:33> General General appearance: alert and in no apparent distress Head Head exam: atraumatic and normocephalic Eye Eye exam: Present normal appearance, PERRL and EOMI Neck Neck exam: Present full ROM; Absent meningismus Chest Chest inspection: Present normal inspection; Absent tenderness Respiratory Respiratory exam: Absent respiratory distress, wheezes, stridor, accessory muscle use or prolonged expiratory phase Cardiovascular Cardiovascular exam: Present normal rhythm and other (Pulses equal and symmetric in bilateral upper and lower extremities) Abdominal Exam Abdominal exam: Absent distention, tenderness or guarding Extremities Exam Extremities exam: Absent edema Neurological Exam Neurological exam: Present alert, oriented X3 and other (Moves extremities to command, no focal neurological deficit, 5 out of 5 strength in bilateral lower and upper extremities, no drift in the bilateral lower and upper extremities, NIH of 0, no gross sensation deficit) Psychiatric Psychiatric exam: Present normal affect Skin Skin exam: Present warm and dry HEART Score <ALAN Servin - Last Filed: 11/19/24 22:33> HEART Score HEART Score assessment performed?: Yes HEART Score: 2 <Edgardo Feliz MD - Last Filed: 11/19/24 23:00> HEART Score History (anamnesis): Slightly suspicious ECG: Normal Age: 45-65 years Risk factors: Atherosclerosis history Troponin: </= normal limit HEART Score: 3 Critical Care <ALAN Servin - Last Filed: 11/19/24 22:33> Critical Care Time Critical Care Time: No Medical Decision Making <ALAN Servin - Last Filed: 11/19/24 22:33> Medical Records Medical records reviewed: Yes I reviewed the patient's medical records. Andrea Inquiry Pt receiving controlled substance: No Andrea was queried for this patient: No Vital Signs Vital Signs: 11/19/24 20:00 11/19/24 20:08 11/19/24 20:30 Temperature 98.7 F Temperature Source Oral Pulse Rate 87 87 Pulse Rate [Left] 81 Respiratory Rate 21 18 14 Blood Pressure 120/84 127/87 Blood Pressure [Right Arm] 120/84 Blood Pressure Mean 90 95 Blood Pressure Mean [Right Arm] 96 Blood Pressure Source [Right Arm] Automatic Cuff Blood Pressure Position [Right Arm] Sitting 02 Sat by Pulse Oximetry 97 97 98 Oxygen Delivery Method Room Air Room Air 11/19/24 21:30 Temperature Temperature Source Pulse Rate 80 Pulse Rate [Left] Respiratory Rate 21 Blood Pressure 118/81 Blood Pressure [Right Arm] Blood Pressure Mean 89 Blood Pressure Mean [Right Arm] Blood Pressure Source [Right Arm] Blood Pressure Position [Right Arm] 02 Sat by Pulse Oximetry 98 Oxygen Delivery Method Room Air Lab Data Lab results reviewed: Yes I reviewed the patient's lab results. Labs: Lab Results 11/19/24 19:57: WBC 11.7 H, RBC 5.11, Hgb 15.1, Hct 44.1, MCV 86.3, MCH 29.5, MCHC 34.2, RDW 14.4, Plt Count 336, MPV 9.8, Neut % (Auto) 61.5, Lymph % (Auto) 25.3, [place] % (Auto) 9.1, Eos % (Auto) 2.8, Baso % (Auto) 0.7, Neut # (Auto) 7.2, Lymph # (Auto) 3.0, [place] # (Auto) 1.1 H, Eos # (Auto) 0.3, Baso # (Auto) 0.1, PT 11.5, INR 1.04, D-Dimer 0.69 H, Sodium 138, Potassium 3.5, Chloride 101, Carbon Dioxide 28, Anion Gap 12.5, BUN 10, Creatinine 1.00, Estimated Creat Clear 113, Estimated GFR 81, Est GFR ( Amer) 98, Glucose 105 H, Calcium 9.6, Magnesium 1.9, Total Bilirubin 0.6, AST 36, ALT 26, Alkaline Phosphatase 128 H, Troponin I < 0.01, NT-Pro-B Natriuret Pep < 20.0, Total Protein 6.7, Albumin 4.1, Globulin 2.6, Albumin/Globulin Ratio 1.6, Lipase 110, Plasma/Serum Alcohol < 10 10/03/25 20:18: Urine Color Yellow, Urine Appearance Clear, Urine pH 8.5, Ur Specific [place] 1.010, Urine Protein Negative, Urine Glucose (UA) Negative, Urine Ketones Trace, Urine Blood Negative, Urine Nitrate Negative, Urine Bilirubin Negative, Urine Urobilinogen 0.2, Ur Leukocyte Esterase Negative, Urine RBC Occasional, Urine WBC Occasional, Ur Squamous Epith Cells Occasional, Amorphous Sediment 2+, Urine Bacteria 2+, Urine Opiates Screen Negative, Urine Methadone Screen Negative, Ur Barbituates Screen Negative, Ur Phencyclidine Scrn Negative, Ur Amphetamines Screen Negative, U Benzodiazepines Scrn Negative, Urine Cocaine Screen Negative, U Marijuana (THC) Screen Negative 11/19/24 22:00: Troponin I < 0.01 11/19/24 19:57 11/19/24 19:57 Response Orders (Tests/Meds): ED MEDICATIONS Generic Name Dose Route Start Last Admin Trade Name Freq PRN Reason Stop Dose Admin Sodium Chloride 10 ml 11/19/24 21:01 11/19/24 21:02 Sodium Chloride 0.9% 10ml Syr (Rad Only) IV 12/19/24 21:00 10 ml NEEDED PRN Administration Maintain IV Site Discontinued Medications Generic Name Dose Route Start Last Admin Trade Name Freq PRN Reason Stop Dose Admin Aspirin 324 mg 11/19/24 20:00 11/19/24 20:19 Aspirin 81mg Chewable Tablet PO 11/19/24 20:01 324 mg ONCE ONE Administration Iopamidol 70 ml 11/19/24 21:01 11/19/24 21:02 Iopamidol-370 (76%);100ml Bottle IV 11/19/24 21:02 70 ml ONCE ONE Administration Sodium Chloride 40 ml 11/19/24 21:01 11/19/24 21:02 0.9 % Sodium Chloride 50 Ml Vial IV 11/19/24 21:02 40 ml ONCE ONE Administration ORDERS Category Date Time Status CT angio chest PE protocol Stat Cat Scan 11/19/24 20:[address] head/brain wo con Stat Cat Scan 11/19/24 19:59 Completed XR chest portable Stat Exams 11/19/24 19:59 Completed Complete Blood Count Auto Diff Stat Lab 11/19/24 19:57 Completed Comprehensive Metabolic Panel Stat Lab 11/19/24 19:57 Completed D-Dimer Stat Lab 11/19/24 19:57 Completed Drug Screen,Urine Stat Lab 11/19/24 20:18 Completed Ethyl Alcohol Stat Lab 11/19/24 19:57 Completed Lipase Stat Lab 11/19/24 19:57 Completed Magnesium Stat Lab 11/19/24 19:57 Completed NT Pro Brain Natriuretic Pep. Stat Lab 11/19/24 19:57 Completed PT INR [Prothrombin Time INR] Stat Lab 11/19/24 19:57 Completed Troponin I Q3H Lab 11/19/24 22:00 Completed Troponin I Q3H Lab 11/20/24 02:00 Ordered Troponin I Stat Lab 11/19/24 19:57 Completed Urinalysis and Microscopic Stat Lab 11/19/24 20:18 Completed Urine Culture Stat Micro 11/19/24 20:18 Received MDM Narrative Medical Decision Narrative: 44-year-old male presents to the emergency department with diffuse numbness and tingling, insomnia and chest pain, see HPI for detailed past medical history, differential diagnose include but not limited to, generalized anxiety disorder, panic attack, ACS, cardiac arrhythmia, electrolyte disturbance, acute alcohol intoxication, drug ingestion, among others. Will obtain basic laboratory studies, EKG, CT head without contrast, ethyl alcohol level, CXR, D-dimer, UDS lipase magnesium level proBNP , troponin, UA, and will give 324 mg p.o. aspirin for pain. CBC is noted for mild leukocytosis 11.7, otherwise unremarkable Coags within normal limits D-dimer is minimally elevated at 0.69, thus obtain CTA chest without contrast PE protocol, under troponin is less than 0.01, proBNP within normal limits Alcohol level within normal limits UA is unremarkable. UDS negative I reviewed the patient's CTA chest with and without contrast PE protocol, no acute findings I reviewed the patient's CT head without contrast along the corresponding radiologic report, no acute intracranial abnormality is identified. I reviewed the patient's chest x-ray along with corresponding radiologic report, no acute findings. I discussed this patient's case with attending physician Dr. Feliz at shift change, he will be assuming amended the patient's care/workup, disposition is pending repeat troponin most likely DC <Edgardo Feliz MD - Last Filed: 11/19/24 23:00> Vital Signs Vital Signs: 11/19/24 20:00 11/19/24 20:08 11/19/24 20:30 Temperature 98.7 F Temperature Source Oral Pulse Rate 87 87 Pulse Rate [Left] 81 Respiratory Rate 21 18 14 Blood Pressure 120/84 127/87 Blood Pressure [Right Arm] 120/84 Blood Pressure Mean 90 95 Blood Pressure Mean [Right Arm] 96 Blood Pressure Source [Right Arm] Automatic Cuff Blood Pressure Position [Right Arm] Sitting 02 Sat by Pulse Oximetry 97 97 98 Oxygen Delivery Method Room Air Room Air 11/19/24 21:30 Temperature Temperature Source Pulse Rate 80 Pulse Rate [Left] Respiratory Rate 21 Blood Pressure 118/81 Blood Pressure [Right Arm] Blood Pressure Mean 89 Blood Pressure Mean [Right Arm] Blood Pressure Source [Right Arm] Blood Pressure Position [Right Arm] 02 Sat by Pulse Oximetry 98 Oxygen Delivery Method Room Air Lab Data Labs: Lab Results 11/19/24 19:57: WBC 11.7 H, RBC 5.11, Hgb 15.1, Hct 44.1, MCV 86.3, MCH 29.5, MCHC 34.2, RDW 14.4, Plt Count 336, MPV 9.8, Neut % (Auto) 61.5, Lymph % (Auto) 25.3, [place] % (Auto) 9.1, Eos % (Auto) 2.8, Baso % (Auto) 0.7, Neut # (Auto) 7.2, Lymph # (Auto) 3.0, [place] # (Auto) 1.1 H, Eos # (Auto) 0.3, Baso # (Auto) 0.1, PT 11.5, INR 1.04, D-Dimer 0.69 H, Sodium 138, Potassium 3.5, Chloride 101, Carbon Dioxide 28, Anion Gap 12.5, BUN 10, Creatinine 1.00, Estimated Creat Clear 113, Estimated GFR 81, Est GFR ( Amer) 98, Glucose 105 H, Calcium 9.6, Magnesium 1.9, Total Bilirubin 0.6, AST 36, ALT 26, Alkaline Phosphatase 128 H, Troponin I < 0.01, NT-Pro-B Natriuret Pep < 20.0, Total Protein 6.7, Albumin 4.1, Globulin 2.6, Albumin/Globulin Ratio 1.6, Lipase 110, Plasma/Serum Alcohol < 10 11/19/24 20:18: Urine Color Yellow, Urine Appearance Clear, Urine pH 8.5, Ur Specific [place] 1.010, Urine Protein Negative, Urine Glucose (UA) Negative, Urine Ketones Trace, Urine Blood Negative, Urine Nitrate Negative, Urine Bilirubin Negative, Urine Urobilinogen 0.2, Ur Leukocyte Esterase Negative, Urine RBC Occasional, Urine WBC Occasional, Ur Squamous Epith Cells Occasional, Amorphous Sediment 2+, Urine Bacteria 2+, Urine Opiates Screen Negative, Urine Methadone Screen Negative, Ur Barbituates Screen Negative, Ur Phencyclidine Scrn Negative, Ur Amphetamines Screen Negative, U Benzodiazepines Scrn Negative, Urine Cocaine Screen Negative, U Marijuana (THC) Screen Negative 11/19/24 22:00: Troponin I < 0.01 Response Orders (Tests/Meds): ED MEDICATIONS Generic Name Dose Route Start Last Admin Trade Name Freq PRN Reason Stop Dose Admin Sodium Chloride 10 ml 11/19/24 21:01 11/19/24 21:02 Sodium Chloride 0.9% 10ml Syr (Rad Only) IV 12/19/24 21:00 10 ml NEEDED PRN Administration Maintain IV Site Discontinued Medications Generic Name Dose Route Start Last Admin Trade Name Freq PRN Reason Stop Dose Admin Aspirin 324 mg 11/19/24 20:00 11/19/24 20:19 Aspirin 81mg Chewable Tablet PO 11/19/24 20:01 324 mg ONCE ONE Administration Iopamidol 70 ml 11/19/24 21:01 11/19/24 21:02 Iopamidol-370 (76%);100ml Bottle IV 11/19/24 21:02 70 ml ONCE ONE Administration Sodium Chloride 40 ml 11/19/24 21:01 11/19/24 21:02 0.9 % Sodium Chloride 50 Ml Vial IV 11/19/24 21:02 40 ml ONCE ONE Administration ORDERS Category Date Time Status CT angio chest PE protocol Stat Cat Scan 11/19/24 20:[address] head/brain wo con Stat Cat Scan 11/19/24 19:59 Completed XR chest portable Stat Exams 11/19/24 19:59 Completed Complete Blood Count Auto Diff Stat Lab 11/19/24 19:57 Completed Comprehensive Metabolic Panel Stat Lab 11/19/24 19:57 Completed D-Dimer Stat Lab 11/19/24 19:57 Completed Drug Screen,Urine Stat Lab 11/19/24 20:18 Completed Ethyl Alcohol Stat Lab 11/19/24 19:57 Completed Lipase Stat Lab 11/19/24 19:57 Completed Magnesium Stat Lab 11/19/24 19:57 Completed NT Pro Brain Natriuretic Pep. Stat Lab 11/19/24 19:57 Completed PT INR [Prothrombin Time INR] Stat Lab 11/19/24 19:57 Completed Troponin I Q3H Lab 11/19/24 22:00 Completed Troponin I Q3H Lab 11/20/24 02:00 Ordered Troponin I Stat Lab 11/19/24 19:57 Completed Urinalysis and Microscopic Stat Lab 11/19/24 20:18 Completed Urine Culture Stat Micro 11/19/24 20:18 Received MDM Narrative Medical Decision Narrative: 44-year-old male presents to the emergency department with diffuse numbness and tingling, insomnia and chest pain, see HPI for detailed past medical history, differential diagnose include but not limited to, generalized anxiety disorder, panic attack, ACS, cardiac arrhythmia, electrolyte disturbance, acute alcohol intoxication, drug ingestion, among others. Will obtain basic laboratory studies, EKG, CT head without contrast, ethyl alcohol level, CXR, D-dimer, UDS lipase magnesium level proBNP , troponin, UA, and will give 324 mg p.o. aspirin for pain. CBC is noted for mild leukocytosis 11.7, otherwise unremarkable Coags within normal limits D-dimer is minimally elevated at 0.69, thus obtain CTA chest without contrast PE protocol, under troponin is less than 0.01, proBNP within normal limits Alcohol level within normal limits UA is unremarkable. UDS negative I reviewed the patient's CTA chest with and without contrast PE protocol, no acute findings I reviewed the patient's CT head without contrast along the corresponding radiologic report, no acute intracranial abnormality is identified. I reviewed the patient's chest x-ray along with corresponding radiologic report, no acute findings. I discussed this patient's case with attending physician Dr. Feliz at shift change, he will be assuming amended the patient's care/workup, disposition is pending repeat troponin most likely DC I was consulted by the ARINA, and we discussed the complexity of the problems being addressed. I approve the treatment and management plan for this patient's care in the emergency department, thus performing a substantive portion of the medical decision making. At this time, patient's repeat troponin had been drawn but is pending. He has remained hemodynamically stable and resting comfortably here in the emergency department. Repeat troponin is also negative at less than 0.01. Workup is grossly unremarkable for any acute pathology. Patient states that his symptoms have overall improved. He notes that he was previously followed by sr. social media & mobile manager in [place] and last saw them 5 months ago for aortic spasm . Encouraged him to follow-up with his sr. social media & mobile manager and PCP. Return precautions were given. All questions were answered. He demonstrated understanding and was in agreement with this plan. He was then discharged from the emergency department in stable condition. Edgardo Feliz MD
--- NOTE | 2024-11-19 19:59 | XR_ITS ---
PROCEDURE INFORMATION: Exam: XR Chest Exam date and time: 11/19/2024 9:03 PM Age: 44 years old Clinical indication: Shortness of breath; Additional info: Soa/cp TECHNIQUE: Imaging protocol: Radiologic exam of the chest. Views: 1 view. COMPARISON: CT ANGIO CHEST PE PROTOCOL 11/19/2024 9:02 PM FINDINGS: Lungs: Unremarkable. No consolidation. Pleural spaces: Unremarkable. No pleural effusion. No pneumothorax. Heart/Mediastinum: Unremarkable. No cardiomegaly. Bones/joints: Unremarkable. IMPRESSION: No acute findings.
--- NOTE | 2024-11-19 19:59 | CT_ITS ---
PROCEDURE INFORMATION: Exam: CT Head Without Contrast Exam date and time: 11/19/2024 9:00 PM Age: 44 years old Clinical indication: Other: Headache TECHNIQUE: Imaging protocol: Computed tomography of the head without contrast. Radiation optimization: All CT scans at this facility use at least one of these dose optimization techniques: automated exposure control; mA and/or kV adjustment per patient size (includes targeted exams where dose is matched to clinical indication); or iterative reconstruction. COMPARISON: CT ORBIT BI WO CON 01/30/2021 3:36 AM FINDINGS: Brain: No mass, mass effect, or midline shift. No acute intra- or extra-axial hemorrhage. No evidence of acute ischemia is identified. Cerebral ventricles: No hydrocephalus. Paranasal sinuses: Clear as visualized. Mastoid air cells: Clear as visualized. Bones: No acute fracture is identified. Soft tissues: No focal soft tissue swelling. IMPRESSION: No acute intracranial abnormality is identified.
[2024-11-19 20:00] VITALS: BP 120/84; PULSE 87; RESP 21; O2SAT 97
--- OUTSIDE RECORDS SUMMARY | 2024-11-19 20:07 | XMS_ITS | Clinical Summary ---
Author Organization [facility] Address [address] [place] [address] Phone Care Team Providers Care Research Electrician Name Role Phone Farrukh WOODARD, Diogenes Ramirez [phone] Conditions or Problems Problem Name Problem Code Onset Date Status Entry Date Provider Comment Standard Description Annotate ARTHROPATHY OF LUMBAR FACET 537290509 (SNOMED CT) 10/12 Active 10/12 Diogenes Chadwick MD Arthropathy of lumbar facet joint OA OF SPINAL FACET JOINT 518301121 (SNOMED CT) 02/22 Active 02/22 Juvencio Cortez Osteoarthritis of spinal facet joint PERIPHERAL NEUROPATHY 214434469 (SNOMED CT) Active William Robertson MA Peripheral nerve disease BACK PAIN, THORACIC REGION 557707390 (SNOMED CT) 10/19 Active 10/19 Marie Vocke Thoracic back pain BACK PAIN, LUMBAR, WITH RADICULOPATH Y 744426920 (SNOMED CT) 10/19 Active 10/19 Marie Vocke Lumbar radiculopathy Medications Medication Instructions Start Date Stop Date Generic Name ND Provider [facility] VITAMIN C TABS ASCORBIC ACID TABS 09222244584 July Mike REYES GNP VITAMIN D TABS CHOLECALCIFEROL TABS 64391167642 July Mike REYES [place] SOLN OXYMETAZOLINE HCL SOLN [id number] July Mike REYES ZYRTEC ALLERGY TABS CETIRIZINE HCL TABS [id number] July Mike REYES TYLENOL CAPS ACETAMINOPHEN CAPS [id number] Alyse Mike REYES FUROSEMIDE 20 MG TABS FUROSEMIDE [id number] Alyse Mistler RN ACYCLOVIR TABS ACYCLOVIR TABS [id number] July Mike RN NEXIUM 40 MG PACK ESOMEPRAZOLE MAGNESIUM [id number] July Mike RN ENTOCORT EC CAPSULE DELAYED RELEASE PARTICLES BUDESONIDE CPEP [id number] July Mike RN PENTASA CR-CAPS MESALAMINE CR-CAPS [id number] July Mike RN GABAPENTIN TABS GABAPENTIN TABS [id number] July Mike RN ADDERALL 30 MG TABS AMPHETAMINE-DEXTRO AMPHETAMINE [id number] July Mike RN ABILIFY 2 MG TABS ARIPIPRAZOLE [id number] July Mike RN CYMBALTA 60 MG CPEP DULOXETINE HCL [id number] July Mike RN ALPRAZOLAM TABS ALPRAZOLAM TABS [id number] July Mike RN PERCOCET 10-325 MG TABS Non-[place] OXYCODONE-ACETAMIN OPHEN [id number] July Mike RN BACTRIM TABS Non-[place] SULFAMETHOXAZOLE-T RIMETHOPRIM TABS [id number] July Mike RN BACTRIM TABS [facility] SULFAMETHOXAZOLE-T RIMETHOPRIM TABS [id number] Juvencio Cortez PERCOCET 10-325 MG TABS [facility] OXYCODONE-ACETAMIN OPHEN [phone] Narcisoer Cortez Medications Administered No information available. Allergies, Adverse Reactions, Alerts Allergy Name Reaction Description Start Date Severity Statu s Provider HUMIRA Critical July Mist ler RN IMURAN Critical July Mist ler RN ZOLOFT Critical July Mist ler RN ENTYVIO Critical July Mist ler RN BUSPAR Critical July Mist ler RN PAXIL Critical July Mist ler RN BEE POLLEN Critical July Mis tler RN MORPHINE Critical Alyse Mist ler RN BACTRIM Mild Narciso er Cortez Results No information available. Plan of Care Type Date Detail Pending order Medial Branch Bl ock (MBB) Pending order Medial Branch Bl ock (MBB) Patient education OSTEOARTHRITIS Patient education peripheral%20n europathy Procedures Code Procedure Name Date Entry Date 07287 EMG w/ NCS, Complete, 1 Extremity CPT-884 99 0380/10/16 15794 Nerve Conduction Study (5-6 studies) CPT- 86592 15514 MRI Lumbar Spine 55013 MRI Thoracic Spine 2 Vital Signs Date Name Value Unit Description BMI (Body Mass Index) 23.72 kg/m2 Bod y Mass Index (Ratio) BP Diastolic 80 mm[Hg] blood pressu re, diastolic BP Systolic 120 mm[Hg] blood pressur e, systolic Height 70 [in_us] height E&M Weight Measured 165.3 [lb_av] weight E& M Weight Measured 165.3 [lb_av] weight E& M Heart Rate 78 /min pulse rate Immunizations No information available. Advance Directives No information available.
--- OUTSIDE RECORDS SUMMARY | 2024-11-19 20:07 | XMS_ITS | Clinical Summary ---
Author Organization [facility] Address [address] [place] [address] Care Team Providers Care Shooter'S Helper Name Role Phone Pcp, No Primary Care Provider [phone] Source Comments This information has been disclosed to you from confidential records protectedfrom disclosure by state law. You shall make no further disclosure of thisinformation without the specific, written, and informed release of theindividual to whom it pertains, or as otherwise permitted by law. A generalauthorization for the release of medical or other information is not sufficientfor the purposes of therelease of HIV test results or diagnoses. [id number] Allergies Active Allergy Reactions Criticality Noted Date Comments Adalimumab 07/14/2014 [place] like had a virus, Joint pain fatigue [place] like had a virus, Joint pain fatigue Amoxicillin 11/04/2016 Bee Pollen 11/04/2016 Buspirone Anxiety,Other (See Comments) Low 09/09/2017 ANXIETY ANXIETY Cephalexin Rash Low 02/24/2017 Azathioprine 11/27/2017 Morphine Other (See Comments) 02/03/2017 Paroxetine Hcl Anxiety,Other (See Comments) Low 09/09/2017 ANXIETY ANXIETY Paroxetine Mesylate 05/10/2018 Prednisone 08/13/2016 Severe paranoid hallucinations and anxiety Severe paranoid hallucinations and anxiety Fluoxetine 11/27/2017 Sulfamethoxazole-Trim ethoprim 11/04/2016 Sertraline 11/27/2017 Medications * This document contains information received from the source organization and may not represent a complete record from that organization. ALPRAZolam (XANAX) 1 MG tablet Take 1 tablet by mouth 3 times a day. Active dextroamphetami ne-amphetamine (ADDERALL) 10 mg Tab Take 30 mg by mouth 2 times a day. Active ascorbic acid, vitamin C, (VITAMIN C) 250 MG tablet Take 1 tablet by mouth 3 times a day. Active dicyclomine (BENTYL) 20 mg tablet Take 20 mg by mouth 4 times a day. Active gabapentin (NEURONTIN) 400 MG capsule Take 1,200 mg by mouth 4 times a day. Active mesalamine (PENTASA) 250 mg CR capsule Take 1 capsule by mouth 4 times a day. Active oxyCODONE-aceta minophen (PERCOCET) 10-325 mg per tablet Take 1 tablet by mouth every 3 hours as needed. Active valACYclovir (VALTREX) 500 MG tablet Take 1 tablet by mouth 2 times a day. Active predniSONE (DELTASONE) 20 MG tablet Take 40 mg by mouth daily. Active esomeprazole (NEXIUM) 40 MG capsule Take 40 mg by mouth every morning before breakfast. Active traZODone (DESYREL) 50 MG tablet Take 50 mg by mouth at bedtime. Active diclofenac sodium 1 % Gel Apply topically 2 times a day. Active dextroamphetami ne-amphetamine (ADDERALL) 30 mg Tab Take 30 mg by mouth once as needed. Active furosemide (LASIX) 40 MG tablet Take 40 mg by mouth 2 times a day. Active eszopiclone (LUNESTA) 1 MG Tab Take 3 mg by mouth at bedtime as needed. Take immediately before bedtime Active budesonide 9 mg TaDE Take 9 mg by mouth daily. Active ARIPiprazole (ABILIFY) 2 MG tablet Take 2 mg by mouth daily. Active DULoxetine (CYMBALTA) 60 MG capsule Take 60 mg by mouth daily. Active Active Problems Problem Noted Date Diagnosed Date Steroid-induced psychosis, with delusions 2017 Social History Tobacco Use Types Packs/Day Years Used Date Smoking Tobacco: Every Day Cigarettes Smokeless Tobacco: Never Alcohol Use Standard Drinks/Week Comments No 0 (1 standard drink = 0.6 oz pur e alcohol) Sex and Gender Information Value Date Recorded Sex Assigned at Not on file Legal Sex Male 6:44 PM EST Gender Identity Not on file Sexual Orientation Not on file Last Filed Vital Signs Vital Sign Reading Time Taken Comments Blood Pressure 143/98 05/26/2023 9:38 PM EDT Pulse 78 05/26/2023 9:38 PM EDT Temperature 36.9 C (98.5 F) 05/26/2023 9:38 PM EDT Respiratory Rate 16 05/26/2023 9:38 PM EDT Oxygen Saturation 99% 05/26/2023 9:38 PM EDT Inhaled Oxygen Concentration 99% 05/26/2023 9 :38 PM EDT Weight 83.5 kg (184 lb) 10/03/2019 3:25 PM EDT Height 180.3 cm (5' 11 ) 10/03/2019 3:25 PM EDT Body Mass Index 25.66 10/03/2019 3:25 PM EDT Plan of Treatment Health Maintenance Due Date Last Done Comments Abnormal Colonoscopy Follow Up 1979 Diabetes Screening 1979 Hepatitis C Screening (MyChart) 1979 Alcohol Misuse Screening 1997 Depression Screening 1997 HIV Screening 1997 Immunization: Hepatitis B (1 of 3 - 19+ 3-dose series) 1998 Immunization: Pneumococcal ( 1 of 2 - PCV) 1998 Lipid Panel 11/27/2022 11/27/2017 Cologuard (FIT-DNA) 2024 Colonoscopy 2024 Colorectal Cancer Screening (MyChart) 2024 Stool Testing (gFOBT) 2024 Immunization: COVID-19 ( season) 2024 Immunization: Influenza (MyC green) (#1) 2024 Immunization: DTaP/Tdap/Td ( 7 - Td or Tdap) 02/17/2030 02/18/2020, 07/21/2009, 02/14/1995, Additional history exists Procedures Procedure Name Priority Date/Time Associated Diagnosis Comments LIPID PANEL Routine 11/27/2017 4:30 AM EDT from Last 3 Months or Most Recently Relevant to Health Maintenance Results * (ABNORMAL) Lipid Profile (11/27/2017 4:30 AM EDT) Cholesterol, Total 171 0 - 200 mg/dL 11/27/2017 5:18 AM EDT [facility] Triglycerides 389(H) 10 - 149 mg/dL 11/27/2017 5:18 AM EDT [facility] HDL 36(L) 60 - 92 mg/dL 11/27/2017 5:18 AM EDT [facility] Comment: LIPID PROFILE INTERPRETATION CHOLESTEROL,TOTAL(mg/dL) DESIRABLE: < 200 BORDERLINE HIGH RISK: 200 - 239 HIGH RISK(UNDESIRABLE): =/> 240 LDL CHOLESTEROL(mg/dL) OPTIMAL: < 100 NEAR HIGH OPTIMAL: 100 - 129 BORDERLINE HIGH RISK: 130 - 159 HIGH RISK: 160 - 189 VERY HIGH RISK: =/> 190 HDL CHOLESTEROL(mg/dL) HIGH RISK(UNDESIRABLE): < 40 BORDERLINE: 40 - 59 LOW RISK (DESIRABLE): => 60 TRIGLYCERIDES (mg/dL) NORMAL(DESIRABLE): < 150 BORDERLINE HIGH RISK: 150 - 199 HIGH RISK: 200 - 499 VERY HIGH RISK: =/> 500 Based on the guidlines of the National Cholesterol Education Program (NCEP). Assumes sample obtained after a 9- to 12- hour fast. LDL Cholesterol 57 mg/dL 8 5:18 AM EDT [facility] Plasma specimen (specimen) 11/27/2017 4:30 AM EDT 11/27/2017 4:51 AM EDT us Chapincito Winston MD LAB BLOOD ORDERABLES F inal Result [facility] [address] [place] [address], [facility] from Last 3 Months or Most Recently Relevant to Health Maintenance Insurance [employer] G[employer]US MEDICARE [facility] Care Address: [address] [address] MEDICAID [place] Advance Directives For more information, please contact: [phone] * Full Code (Latest Code Status on File) Date Activated Date Inactivated Comments 11/27/2017 3:31 AM 11/27/2017 4:34 PM Care Teams Shooter'S Helper Relationship Specialty Start Date End Date Pcp, No No Address PCP - General 05/26/23
--- OUTSIDE RECORDS SUMMARY | 2024-11-19 20:07 | XMS_ITS | Clinical Summary ---
Author Organization [facility] Address [address] [place] [address] Phone Care Team Providers Care Public Health Doctor Name Role Phone Unavailable Unavailable Conditions or Problems No information available. Medications No information available. Medications Administered No information available. Allergies, Adverse Reactions, Alerts No information available. Results No information available. Plan of Care No information available. Procedures No information available. Vital Signs No information available. Immunizations No information available. Advance Directives No information available.
[2024-11-19 20:08] VITALS: BP 120/84; PULSE 81; RESP 18; TEMP 37.1; O2SAT 97; BMI 27.1
--- OUTSIDE RECORDS SUMMARY | 2024-11-19 20:08 | XMS_ITS | Encounter Summary ---
Author Organization [facility] [place] [address] Care Team Providers Care Flower Machine Operator Name Role Phone Brayden Khan MD Unavailable [phone] Rama Dowell MD Unavailable Unavailable Devin Farias MD Unavailable [phone] Melonie Kent APRN Primary Care Provider [phone] Encounter Details Date Type Department Care Team (Latest Contact Info) Description 11/02/2024 Travel Social History Tobacco Use Types Packs/Day Years [...] on file documented as of this encounter Functional Status * Is the [...] Assessment Author No Risk 11/02/2024 11:56 PM Mary Katz RN * [place] Suicide Severity Rating Scale (Q shift for moderate and high) Question Answer Date of Assessment Author 1. In the past month, have y ou wished you were or wished you could go to sleep and not wake up? 0 11/02/2024 11:56 PM Marylu Ruvalcaba RN 2. In the past month, have y ou actually had any thoughts of killing yourself? (If no, skip to question 6) 0 11/02/2024 11:56 PM Marylu Ruvalcaba RN 6. Have you ever done anything, started to do anything, or prepared to do anything to end your life? 0 11/02/2024 11:56 PM Mary Ruvalcaba RN documented as of this encounter Mental Status * Because of a physical, mental or emotional condition, does this person have serious difficulty concentrating, remembering or making decisions? Answer Entry Date Author No 05/17/2022 10:36 AM Sia Novoa CCMA documented in this encounter Plan of Treatment [...] Estrada CCMA documented as of this encounter Visit Diagnoses Not on filedocumented in this encounter Care Teams Flower Machine Operator Relationship Specialty Start Date End Date Melonie Kent APRN [facility] [address] [place] [id number] PCP - General Nurse Practitioner 04/27/24 Brayden Khan MD Internal Medicine-Gastroenterology 11/27/12 Rama Dowell MD Internal Medicine-Gastroenterology 12/23/12 Devin Farias MD [address] [place] [address] Internal Medicine-Interventional Cardiology 08/22/22 documented as of this encounter
--- OUTSIDE RECORDS SUMMARY | 2024-11-19 20:08 | XMS_ITS | Encounter Summary ---
Author Organization [facility] Address [address] [place] [address] Care Team Providers Care Cardiac Rn Name Role Phone Brayden Khan MD Unavailable [phone] Rama Dowell MD Unavailable Unavailable Devin Farias MD Unavailable Melonie Kent APRN Primary Care Provider [phone] Reason for Visit * Reason Comments Medication Refill Encounter Details Date Type Department Care Team (Late st Contact Info) Description 10/29/2024 Refill [facility] [address] [place] [address] Riya Ocampo APRN [address] [place] [address] Medication Refill Social History Tobacco Use Types Packs/Day Years [...] 05/17/2022 10:36 AM Sia Novoa CCMA documented as of this encounter Mental Status * Because of a physical, mental or emotional condition, does this person have serious difficulty concentrating, remembering or making decisions? Answer Entry Date Author No 05/17/2022 10:36 AM Sia Novoa CCMA documented in this encounter Ordered Prescriptions Prescription Sig Dispense Quantity Refills Last Filled Start Date End Date esomeprazole (NEXIUM) 40 mg Oral Capsule, Delayed Release(E.C.) Take 1 Capsule by mouth every morning before breakfast. 30 Capsule 10/29/2024 documented in this encounter Plan of Treatment Not on file documented as of this encounter Goals Goal Patient Goal Type Associated Problems Recent Progress Patient-Stated? Author Blood Pressure < 140/90 Blood Pressure 122/82(2024 8:56 AM EDT) Meagan Meyer CCMA Maintain a healthy diet, exercise regularly and maintain an ideal body weight General No [place], Meagan, CCMA Stay Tobacco Free Lifestyle No Meagan Estrada CCMA documented as of this encounter Visit Diagnoses Not on filedocumented in this encounter Discontinued Medications Medication Sig Discontinue Reason Start Date End Da te esomeprazole (NEXIUM) 40 mg Oral Capsule, Delayed Release(E.C.) Take 1 Capsule by mouth every morning before breakfast. 09/28/2024 10/29/2024 documented as of this encounter Care Teams Cardiac Rn Relationship Specialty Start Date End Date Melonie Kent APRN [address] [place] [id number] PCP - General Nurse Practitioner 04/27/24 Brayden Khan MD Internal Medicine-Gastroenterology 11/27/12 Rama Dowell MD Internal Medicine-Gastroenterology 12/23/12 Devin Farias MD [address] [place] [address] Internal Medicine-Interventional Cardiology 08/22/22 documented as of this encounter
--- OUTSIDE RECORDS SUMMARY | 2024-11-19 20:08 | XMS_ITS | Clinical Summary ---
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 questions were answered and informed consent obtained. ASA 2 - Patient with mild systemic disease Details of the Procedure The patient underwent monitored anesthesia care, which was administered by an anesthesia professional. The patient's blood pressure, heart rate, level of consciousness, oxygen, respirations, ECG and ETCO2 were monitored throughout the procedure. A digital rectal exam was performed. The scope was introduced through the anus and advanced to the cecum. Retroflexion was performed in the rectum. Bowel prep was adequate. The patient experienced no blood loss. The procedure was not difficult. The patient tolerated the procedure well. There were no apparent adverse events. Patient provided education and educated on specific discharge instructions. Patient educated on medications given during the procedure and new medications for discharge. Patient verbalizes understanding of discharge education. Patient stable and awaiting transport for discharge. Events Procedure Events Event Event Time ENDO SCOPE IN TIME 05/12/2024 3:44 PM ENDO SCOPE OUT TIME 05/12/2024 3:51 PM ENDO SCOPE IN TIME 05/12/2024 3:56 PM ENDO CECUM REACHED 05/12/2024 4:04 PM ENDO SCOPE WITHDRAW BEGIN 05/12/2024 4:04 PM [facility] LUME TI REACHED 05/12/2024 4:06 PM ENDO SCOPE OUT TIME 05/12/2024 4:18 PM Specimens ID Type Source Tests Collected by Time 1 : Tissue Esophagus [facility] PATHOLOGY ORDER Aydin Toussaint MD 05/12/2024 1553 2 : Tissue Gastric [facility] PATHOLOGY ORDER Aydin Toussaint MD 05/12/2024 1553 3 : Tissue Small Intestine, Duodenum [facility] PATHOLOGY ORDER Aydin Toussaint MD 05/12/2024 1553 4 : polyp Tissue Large Intestine, Rectum [facility] PATHOLOGY ORDER Aydin Toussaint MD 05/12/2024 1622 5 : ileitis Tissue Small Intestine, Ileum [facility] PATHOLOGY ORDER Aydin Toussaint MD 05/12/2024 1622 [facility] ENDOSCOPY PROCEDURE ORD ERABLES Final Result from Last 3 Months or Most Recently Relevant to Health Maintenance Insurance [place] HU[place] MEDICARE HMO [place] MED[place] HMO MR HU[employer]NA MEDICARE HMO [place] MED[place] Advance Directives For more information, please contact: [phone] * Full Code (Latest Code Status on File) Date Activated Date Inactivated Comments 12/12/2022 2:41 PM 12/12/2022 8:51 PM * Full Code Date Activated Date Inactivated Comments 07/29/2020 5:20 PM 07/30/2020 8:11 PM * Full Code Date Activated Date Inactivated Comments 12/01/2018 10:21 PM 12/03/2018 1:00 PM * Full Code Date Activated Date Inactivated Comments 05/24/2018 11:53 PM 05/27/2018 9:56 PM * Full Code Date Activated Date Inactivated Comments 10/09/2017 3:00 PM 10/13/2017 4:47 PM Care Teams Fruit Pitter Relationship Specialty Start Date End Date Melonie Kent APRN [facility] [address] [place] [id number] PCP - General Nurse Practitioner 04/27/24 Elena Khan MD Internal Medicine-Gastroenterology 11/27/12 Rama Dowell MD Internal Medicine-Gastroenterology 12/23/12 Devin Farias MD [address] [place] [address] [place] [address] Internal Medicine-Interventional Cardiology 08/22/22
--- OUTSIDE RECORDS SUMMARY | 2024-11-19 20:08 | XMS_ITS | Encounter Summary ---
[facility] Address [address] [place] [address] Care Team Providers Care Automotive Lot Attendant Name Role Phone Brayden Khan MD Unavailable [phone] Rama Dowell MD Unavailable Unavailable Devin Farias MD Unavailable [phone] Melonie Kent APRN Primary Care Provider [phone] Reason for Visit * Reason Comments Medication Refill Encounter Details Date Type Department Care Team (Late st Contact Info) Description 09/28/2024 Refill [facility] [address] [place] [address] Riya Ocampo APRN [address] [place] [address] Medication Refill Social History Tobacco [...] mouth every morning before breakfast. 30 Capsule 09/28/2024 documented in this encounter Plan of Treatment [...] Capsule by mouth every morning before breakfast. 08/23/2024 09/28/2024 documented as of this encounter Care Teams Automotive Lot Attendant Relationship Specialty Start Date End Date Melonie Kent APRN [address] [facility] [address] [place] [id number] PCP - General Nurse Practitioner 04/27/24 Brayden Khan MD Internal Medicine-Gastroenterology 11/27/12 Rama Dowell MD Internal Medicine-Gastroenterology 12/23/12 Devin Farias MD [address] [place] [address] Internal Medicine-Interventional Cardiology 08/22/22 documented as of this encounter
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
--- OUTSIDE RECORDS SUMMARY | 2024-11-19 20:08 | XMS_ITS | Clinical Summary ---
Author Organization [facility] Address [address] [place] [id number] Care Team Providers Care Fusion Operator Name Role Phone Other, Physician Bina WOODARD Primary Care Provi janessa Unavailable Allergies Active Allergy Reactions Criticality Noted Date Comments Sulfamethoxazole-Tri methoprim Shortness of Breath 02/24/2017 Buspirone Other (See Comments) 05/05/2018 ANXIETY Cephalexin Rash 02/24/2017 Morphine And Related Headaches,Shortness of Breath High 02/24/2017 Paroxetine Hcl Other (See Comments) 05/05/2018 ANXIETY Fluoxetine Hcl Other (See Comments) 05/05/2018 ANXIETY AND HALLUCINATIONS Sertraline Other (See Comments) 05/05/2018 ANXIETY AND HALLUCINATIONS Medications ALPRAZolam (XANAX) 1 MG TABS Take 1 mg by mouth at bedtime as needed. Active amphetamine-dex troamphetamine (ADDERALL) 10 MG TABS Take 30 mg by mouth daily. Active mesalamine 500 MG CPCR Take 1,000 mg by mouth 4 (four) times daily. Active budesonide (ENTOCORT EC) 3 MG CPEP Take 9 mg by mouth daily. Active dicyclomine (BENTYL) 20 MG TABS Take 20 mg by mouth every 6 (six) hours as needed. Active gabapentin (NEURONTIN) 400 MG CAPS Take 1,200 mg by mouth 4 (four) times daily. Active ascorbic acid (VITAMIN C) 250 MG TABS Take 250 mg by mouth 3 (three) times daily. Active aripiprazole (ABILIFY) 5 MG TABS Take 2 mg by mouth daily. Active esomeprazole (NEXIUM) 40 MG CPDR Take 40 mg by mouth every morning before breakfast. Active DULoxetine (CYMBALTA) 20 MG CPEP Take 20 mg by mouth daily. Active oxycodone-aceta minophen (PERCOCET) 10-325 MG TABS Take 1 tablet by mouth every 4 (four) hours as needed. Active cetirizine (ZYRTEC) 10 MG TABS Take 10 mg by mouth daily. Active predniSONE (DELTASONE) 10 MG TABS Take 10 mg by mouth daily. Active Family History Medical History Relation Name Comments Heart Disease Father Dementia Maternal Grandfather Colon polyps Maternal Grandmother Stroke Maternal Grandmother Relation Name Status Comments Father Maternal Grandfather Maternal Grandmother Social History Tobacco Use Types Packs/Day Years Used Date Smoking Tobacco: Every Day Cigarettes 1.5 25 Smokeless Tobacco: Never Tobacco Cessation:Ready to Q uit: No; Counseling Given: Yes Comments:smokes 1.5 PPD Alcohol Use Standard Drinks/Week Comments No 0 (1 standard drink = 0.6 oz pur e alcohol) rarely Sex and Gender Information Value Date Recorded Sex Assigned at Not on file Legal Sex Male 11:33 AM EDT Gender Identity Male 04/13/2018 2:11 PM EST Sexual Orientation Not on file Last Filed Vital Signs Vital Sign Reading Time Taken Comments Blood Pressure 138/77 07/05/2021 8:22 PM EDT Pulse 101 07/05/2021 8:22 PM EDT Temperature 37 C (98.6 F) 07/05/2021 8:22 PM EDT Respiratory Rate 18 07/05/2021 8:22 PM EDT Oxygen Saturation 99% 07/05/2021 8:22 PM EDT Inhaled Oxygen Concentration - - Weight 92.1 kg (203 lb) 03/11/2019 6:57 AM EST Height 177.8 cm (5' 10 ) 03/11/2019 6:57 AM EST Body Mass Index 29.13 03/11/2019 6:57 AM EST Plan of Treatment Health Maintenance Due Date Last Done Comments HPV (1 - 3-dose SCDM series) 2006 Colonoscopy 2024 Influenza Vaccine (#1) 2024 DTap,Tdap,and Td (2 - Td or Tdap) 02/17/2030 021 RSV Vaccine (60+ or ) (1 - 1-dose 75+ series) 2054 Meningococcal conjugate vinod nt 4 (MCV4) Aged Out No longer eligible b ased on patient's age to complete this topic Pneumococcal 0-49 Aged Out No longer eligible based on patient's age to complete this topic RSV Immunization (<20 months) Aged Out No longer eligible based on patient's age to complete this topic Insurance [place]ICAID [place] Care Teams Fusion Operator Relationship Specialty Start Date End Date Other, Physician MD Bina PCP - General Internal Medicine 04/13/18
[2024-11-19 20:10] LABS: Hematocrit 44.1 % (42.0-52.0); Hemoglobin 15.1 g/dL (14.1-18.0); Immature Granulocytes % 0.6 %; Mean Corpuscular HGB Conc 34.2 g/dL (31.8-35.4); Mean Corpuscular Hemoglobin 29.5 pg (27.0-31.2); Mean Corpuscular Volume 86.3 fl (80-94); Nucleated Red Blood Cells % 0 %; Platelet Count 336 K/mm3 (142-424); Red Blood Count 5.11 M/mm3 (4.60-6.20); Red Cell Distribution Width-SD 45.6 fL; White Blood Count 11.7 K/mm3 (4.8-10.8)
[2024-11-19] MEDS: ASPIRIN 81MG CHEWABLE TABLET 324 MG PO (20:19)
[2024-11-19 20:22] LABS: Alanine Aminotransferase 26 U/L (12-78); Albumin Level 4.1 g/dl (3.5-5.0); Albumin/Globulin Ratio 1.6 (1.1-1.8); Alkaline Phosphatase 128 U/L (38-126); Anion Gap 12.5 mEq/L (5-15); Aspartate Amino Transferase 36 U/L (17-59); Bilirubin,Total 0.6 mg/dl (0.2-1.3); Blood Urea Nitrogen 10 mg/dl (9-20); Calcium 9.6 mg/dl (8.4-10.2); Carbon Dioxide 28 mmol/L (22.0-30.0); Chloride 101 mmol/L (98-107); Creatinine Clearance Estimated 113 mL/min (50-200); Creatinine,Serum 1.00 mg/dl (0.66-1.25); Estimated Glomerular Filt Rate 81 ml/min (>60); GFR (African American) 98 ML/MIN (>60); Globulin 2.6 g/dL (1.3-3.2); Glucose 105 mg/dl (74-100); Potassium 3.5 mmoL/L (3.5-5.1); Sodium 138 mmol/L (136-145); Total Protein,Serum 6.7 g/dl (6.3-8.2)
[2024-11-19 20:23] LABS: INR 1.04 (0.9-1.1); Prothrombin Time 11.5 seconds (10.1-12.5)
[2024-11-19 20:25] LABS: Microscopic, Urine URINE MICROSCOPIC (MICROSCOPIC)
[2024-11-19 20:28] LABS: Lipase 110 U/L (23-300); Magnesium 1.9 mg/dl (1.6-2.3)
[2024-11-19 20:29] LABS: Bilirubin,Urine Negative (Negative); Color,Urine YELLOW (Yellow); Glucose,Urine (UA) Negative (Negative); Ketones,Urine TRACE (Negative); Leukocyte Esterase,Urine Negative (Negative); PH,Urine 8.5 (5.0-8.5); Protein,Urine Negative (Negative); Specific Gravity, Urine 1.010 (1.005-1.030); Urobilinogen,Urine 0.2 EU/dl (0.2)
[2024-11-19 20:30] VITALS: BP 127/87; PULSE 87; RESP 14; O2SAT 98
[2024-11-19 20:30] LABS: D-Dimer 0.69 ug/mL (0.0-0.5)
[2024-11-19 20:36] LABS: Troponin I < 0.01 ng/ml (0.00-0.034)
[2024-11-19 20:37] LABS: NT Pro Brain Natriuretic Pep. < 20.0 pg/mL (0-125)
[2024-11-19 20:44] LABS: Barbiturates Screen,Urine Negative ng/ml (<200)
[2024-11-19 20:45] LABS: Amphetamine/Metha Screen,Urine Negative ng/ml (<1000); Benzodiazepines Screen,Urine Negative ng/ml (<200)
[2024-11-19 20:47] LABS: Methadone Screen,Urine Negative ng/ml (<300)
[2024-11-19 20:48] LABS: Opiate Screen,Urine Negative ng/ml (<300); Phencyclidine Screen,Urine Negative ng/ml (<25)
--- NOTE | 2024-11-19 20:53 | CT_ITS ---
PROCEDURE INFORMATION: Exam: CTA Chest With Contrast Exam date and time: 11/19/2024 9:02 PM Age: 44 years old Clinical indication: Other: Shortness of air/cp TECHNIQUE: Imaging protocol: Computed tomographic angiography of the chest with contrast. Exam focused on the arteries. 3D rendering (Not supervised by radiologist): MIP and/or 3D reconstructed images were created by the technologist. Radiation optimization: All CT scans at this facility use at least one of these dose optimization techniques: automated exposure control; mA and/or kV adjustment per patient size (includes targeted exams where dose is matched to clinical indication); or iterative reconstruction. Contrast material: ISO 370; Contrast volume: 70 ml; Contrast route: INTRAVENOUS (IV); COMPARISON: CR XR CHEST 2V 07/01/2023 7:40 PM FINDINGS: Pulmonary arteries: Normal. No pulmonary emboli. Aorta: Unremarkable. No aortic aneurysm. No aortic dissection. Lungs: Unremarkable. No consolidation. No masses. Pleural spaces: Unremarkable. No pneumothorax. No pleural effusion. Heart: Unremarkable. No cardiomegaly. No pericardial effusion. Lymph nodes: Unremarkable. No enlarged lymph nodes. Bones/joints: Unremarkable. No acute fracture. Soft tissues: Unremarkable. IMPRESSION: No acute findings.
[2024-11-19] MEDS: 0.9 % SODIUM CHLORIDE 50 ML VIAL 40 ML IV (21:02)
[2024-11-19] MEDS: SODIUM CHLORIDE 0.9% 10ML SYR (RAD ONLY) 10 ML IV (21:02)
[2024-11-19] MEDS: IOPAMIDOL-370 (76%);100ML BOTTLE 70 ML IV (21:02)
[2024-11-19 21:30] VITALS: BP 118/81; PULSE 80; RESP 21; O2SAT 98
[2024-11-19 21:34] LABS: Amorphous Sediment,Urine 2+ /lpf; Bacteria,Urine 2+ /lpf; RBC,Urine Occasional #/hpf (0-3); Squamous Epithelial Cell,Urine Occasional #/hpf (0-5); WBC,Urine Occasional #/hpf (0-3)
[2024-11-19 22:42] LABS: Troponin I < 0.01 ng/ml (0.00-0.034)
[2024-11-19 23:00] VITALS: BP 134/78; PULSE 78; RESP 17; TEMP 37.1; O2SAT 98
== END 2024-11-19 23:05 | disposition home or self-care (01) ==
PROVIDERS: Physician Assistant; Emergency Provider Student in an Organized Health Care Education/Training Program; PCP Nurse Practitioner
DX: R07.2 Precordial pain (principal); F17.210 Nicotine dependence, cigarettes, uncomplicated
CPT/HCPCS: 70450; 71045; 71275; 80053; 80307; 80320; 81001; 83690; 83735; 83880; 84484; 85025; 85378; 85610; 87086; 93005; 99285; Q9967

== ENCOUNTER 2024-12-27 16:40 | Outpatient (CLI) | payer MEDICARE, MEDICAID, SELFPAY ==
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
[2024-12-27 16:42] LABS: Coronavirus 19, PCR Not Detected (NotDetected); Influenza A, PCR Not Detected (NotDetected); Influenza B, PCR Not Detected (NotDetected)
--- OUTSIDE RECORDS SUMMARY | 2024-12-28 16:42 | XMS_ITS | Clinical Summary ---
Author Organization [facility] Address [address] [place] [address] Phone Care Team Providers Care Sign Painter Name Role Phone Farrukh WOODARD, Diogenes Ramirez [phone] Conditions or Problems Problem Name Problem Code Onset Date Status Entry Date Provider Comment Standard Description Annotate ARTHROPATHY OF LUMBAR FACET 054473485 (SNOMED CT) 10/12 Active 10/12 Diogenes Chadwick MD Arthropathy of lumbar facet joint OA OF SPINAL FACET JOINT 545693390 (SNOMED CT) 02/22 Active 02/22 Juvencio Cortez Osteoarthritis of spinal facet joint PERIPHERAL NEUROPATHY 883603901 (SNOMED CT) Active William Robertson MA Peripheral nerve disease BACK PAIN, THORACIC REGION 425937355 (SNOMED CT) 10/19 Active 10/19 Marie Vocke Thoracic back pain BACK PAIN, LUMBAR, WITH RADICULOPATH Y 802359698 (SNOMED CT) 10/19 Active 10/19 Marie Vocke Lumbar radiculopathy Medications Medication Instructions Start Date Stop Date Generic Name ND Provider CVS VITAMIN C TABS ASCORBIC ACID TABS [id number] July Mike REYES GNP VITAMIN D TABS CHOLECALCIFEROL TABS [id number] July Mike REYES CVS [place] SOLN OXYMETAZOLINE HCL SOLN [id number] July Mike REYES ZYRTEC ALLERGY TABS CETIRIZINE HCL TABS [id number] July Mike REYES TYLENOL CAPS ACETAMINOPHEN CAPS [id number] Alyes Mike REYES FUROSEMIDE 20 MG TABS FUROSEMIDE [id number] Alyse Mckeon RN ACYCLOVIR TABS ACYCLOVIR TABS [id number] July Mike RN NEXIUM 40 MG PACK ESOMEPRAZOLE MAGNESIUM [id number] July Mike RN ENTOCORT EC CAPSULE DELAYED RELEASE PARTICLES BUDESONIDE CPEP [id number] July Mike RN PENTASA CR-CAPS MESALAMINE CR-CAPS [id number] July Mike RN GABAPENTIN TABS GABAPENTIN TABS [id number] July Mike RN ADDERALL 30 MG TABS AMPHETAMINE-DEXTRO AMPHETAMINE [id number] July Mike RN ABILIFY 2 MG TABS ARIPIPRAZOLE [id number] July Mike RN CYMBALTA 60 MG ORAL CAPSULE DELAYED RELEASE PARTICLES DULOXETINE HCL [id number] July Mike REYES ALPRAZOLAM TABS ALPRAZOLAM TABS [id number] July Mike RN PERCOCET 10-325 MG TABS Non-[place] OXYCODONE-ACETAMIN OPHEN [id number] July Mike RN BACTRIM TABS Non-[place] SULFAMETHOXAZOLE-T RIMETHOPRIM TABS [id number] July Mike REYES BACTRIM TABS [facility] SULFAMETHOXAZOLE-T RIMETHOPRIM TABS [id number] Juvencio Cortez PERCOCET 10-325 MG TABS [facility] OXYCODONE-ACETAMIN OPHEN [phone] Narcisoer Cortez Medications Administered No information available. [...] Procedures Code Procedure Name Date Entry Date 12599 EMG w/ NCS, Complete, 1 Extremity CPT-685 94 1414/10/16 14908 Nerve Conduction Study (5-6 studies) CPT- 76388 76651 MRI Lumbar Spine 70670 MRI Thoracic Spine 2 Vital Signs Date [...]
--- OUTSIDE RECORDS SUMMARY | 2024-12-28 16:43 | XMS_ITS | Clinical Summary ---
Author Organization [facility] Address [address] [place] [address] Care Team Providers Care Mattress Filler Name Role Phone Pcp, No Primary Care Provider [phone] Source Comments This information has been [...] therelease of HIV test results or diagnoses. [id number] Allergies Active Allergy Reactions Criticality Noted Date Comments Adalimumab 07/14/2014 [place] like had a virus, Joint pain fatigue [place] like had a virus, Joint pain fatigue [...] - 92 mg/dL 11/27/2017 5:18 AM EDT [facility] Comment: LIPID PROFILE INTERPRETATION CHOLESTEROL,TOTAL(mg/dL) [...] Cholesterol 57 mg/dL 8 5:18 AM EDT [facility] Plasma specimen (specimen) 11/27/2017 4:30 AM EDT 11/27/2017 4:51 AM EDT us Chapincito Winston MD LAB BLOOD ORDERABLES F inal Result [facility] [address] [place] [address], [facility] from Last 3 Months or Most Recently Relevant to Health Maintenance Insurance [employer] MEDICARE MEDICAID [place] Advance Directives For more information, please contact: [phone] * Full Code (Latest Code Status on File) Date Activated Date Inactivated Comments 11/27/2017 3:31 AM 11/27/2017 4:34 PM Care Teams Mattress Filler Relationship Specialty Start Date End Date Pcp, No No Address PCP - General 05/26/23
--- OUTSIDE RECORDS SUMMARY | 2024-12-28 16:43 | XMS_ITS | Encounter Summary ---
Author Organization [facility] [place] [address] Care Team Providers Care [employer] Flatbed Truck Driver Name Role Phone Brayden Khan MD Unavailable [phone] Rama Dowell MD Unavailable Unavailable Devin Farias MD Unavailable [phone] Melonie Kent APRN Primary Care Provider [phone] Reason for Visit * Reason Onset Date Comments Paperwork/forms 11/26/2024 Encounter Details Date Type Department Care Team (Late st Contact Info) Description 11/26/2024 Telephone [facility] [address] [address] Devin Farias MD [address] [place] [address] Paperwork/forms Social History Tobacco Use Types Packs/Day Years [...] Sia Novoa CCMA documented in this encounter Miscellaneous Notes * Telephone Encounter - Aletha Ochoa - 11/26/2024 8:28 AM EDT Pt calling and states he misplaced his note to miss class for his appt. Patient calling to see if you can write him a new note that goes thru today to miss class. Please call and advise. documented in this encounter Plan of Treatment Upcoming Encounters Date Type Department Care Team (Late st Contact Info) Description 05/30/2025 11:00 AM EDT Office Visit [facility] [place] [address] [place] [address] [place] [address] Devin Farias MD [address] [place] [address] [place] [address] documented as of this encounter Goals Goal [...] on filedocumented in this encounter Care Teams Regional Company Flatbed Truck Driver Relationship Specialty Start Date End Date Melonie Kent APRN [address] [facility] [address] [place] [address] PCP - General Nurse Practitioner 04/27/24 Brayden Khan MD Internal Medicine-Gastroenterology 11/27/12 Rama Dowell MD Internal Medicine-Gastroenterology 12/23/12 Devin Farias MD [address] [place] [address] DR [place] [id number] Internal Medicine-Interventional Cardiology 08/22/22 documented as of this encounter
--- OUTSIDE RECORDS SUMMARY | 2024-12-28 16:44 | XMS_ITS | Encounter Summary ---
Author Organization [facility] [place] [address] Care Team Providers Care Circus Trainer Name Role Phone Brayden Khan MD Unavailable [phone] Rama Dowell MD Unavailable Unavailable Devin Farias MD Unavailable [phone] Melonie Kent APRN Primary Care Provider [phone] Encounter Details Date Type Department Care Team [...] of Assessment Author No 05/17/2022 10:36 AM EDSia Hernandes CCMA * Is the person blind or does he/she have serious difficulty seeing even when wearing glasses? Answer Date of Assessment Author No 05/17/2022 10:36 AM EDSia Hernandes CCMA * Does this person have serious difficulty walking or climbing stairs? Answer Date of Assessment Author No 05/17/2022 10:36 AM EDSia Hernandes CCMA * Does this person have difficulty dressing or bathing? Answer Date of Assessment Author No 05/17/2022 10:36 AM EDSia Hernandes CCMA * Because of a physical, mental or emotional condition, does this person have difficulty doing errands alone such as visiting a doctor's office or shopping? Answer Date of Assessment Author No 05/17/2022 10:36 AM EDSia Hernandes CCMA * Suicide Severity Rating Answer Date of Assessment Author No Risk 11/02/2024 11:56 PM EDT Mary Hammonds RN * [place] Suicide Severity Rating Scale (Q shift for [...] Sia Anthony CCMA documented in this encounter Plan of Treatment Upcoming Encounters Date Type Department Care Team (Late st Contact Info) Description 05/30/2025 11:00 AM EDT Office Visit [facility] [place] [address] [place] [address] [place] [id number] Devin Farias MD [address] [place] [address] [place] [address] documented as of this encounter Goals [...] on filedocumented in this encounter Care Teams Circus Trainer Relationship Specialty Start Date End Date Melonie Kent APRN [address] [facility] [address] [place] [address] PCP - General Nurse Practitioner 04/27/24 Brayden Khan MD Internal Medicine-Gastroenterology 11/27/12 Rama Dowell MD Internal Medicine-Gastroenterology 12/23/12 Devin Farias MD [address] [place] [address] [address] [place] [id number] Internal Medicine-Interventional Cardiology 08/22/22 documented as of this encounter
--- OUTSIDE RECORDS SUMMARY | 2024-12-28 16:44 | XMS_ITS | Encounter Summary ---
Author Organization [facility] Address [address] [place] [address] Care Team Providers Care Quality Control Projectionist Name Role Phone Brayden Khan MD Unavailable [phone] Rama Dowell MD Unavailable Unavailable Devin Farias MD Unavailable [phone] Melonie Kent APRN Primary Care Provider [phone] Reason for Visit * Reason Comments Medication Refill Encounter Details Date Type Department Care Team (Late st Contact Info) Description 10/29/2024 Refill [facility] [address] [place] [address] Riya Ocampo APRN [address] [place] [address] Medication Refill Social History Tobacco [...] 11:00 AM EDT [place] [address] Devin Farias MD [address] [place] [address] documented as of this encounter Goals Goal Patient Goal Type Associated Problems Recent Progress Patient-Stated? Author Blood Pressure < 140/90 Blood Pressure 122/86(2024 2:30 PM EDT) No NatalieMeagan CCMA Maintain a healthy diet, exercise regularly [...] documented as of this encounter Care Teams Quality Control Projectionist Relationship Specialty Start Date End Date Melonie Kent APRN [facility] [address] [place] [address] PCP - General Nurse Practitioner 04/27/24 Brayden Khan MD Internal Medicine-Gastroenterology 11/27/12 Rama Dowell MD Internal Medicine-Gastroenterology 12/23/12 Devin Farias MD [address] [place] [address] [place] [address] Internal Medicine-Interventional Cardiology 08/22/22 documented as of this encounter
--- OUTSIDE RECORDS SUMMARY | 2024-12-28 16:44 | XMS_ITS | Clinical Summary ---
Author Organization [facility] Address [address] [place] [address] Phone Care Team Providers Care Credit Cashier Name Role Phone Unavailable Unavailable Conditions or Problems No information available. Medications No information available. Medications Administered No information available. Allergies, Adverse Reactions, Alerts No information available. Results No information available. Plan of Care No information available. Procedures No information available. Vital Signs No information available. Immunizations No information available. Advance Directives No information available.
--- OUTSIDE RECORDS SUMMARY | 2024-12-28 16:45 | XMS_ITS | Clinical Summary ---
Author Organization [facility] Address [address] [place] [address] Care Team Providers Care Pluck Trimmer Name Role Phone Other, Physician Bina WOODARD [...] 2024 Influenza Vaccine (#1) 2024 DTap,Tdap,and Td (7 - Td or Tdap) 02/17/2030 02/18/2020, 09/28/1984, 10/18/1980, Additional history exists RSV Vaccine (60+ or ) (1 - 1-dose 75+ series) 2054 Meningococcal conjugate valent 4 (MCV4) Aged Out No longer eligible based on patient's age to complete this topic Pneumococcal 0-49 Aged Out No longer eligible based on patient's age to complete this topic RSV Immunization (<20 months) Aged Out No longer eligible based on patient's age to complete this topic Insurance [facility] MEDICARE ALL OTHER MEDICAID [place] Care Teams Pluck Trimmer Relationship Specialty Start Date End Date Other, Physician MD Bina PCP - General Internal Medicine 04/13/18
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
== END 2024-12-27 23:59 | disposition home or self-care (01) ==
LOC: LAB.DROPOF 12-28 16:41
PROVIDERS: PCP Nurse Practitioner; Visit Provider Nurse Practitioner
DX: J06.9 Acute upper respiratory infection, unspecified (principal)
CPT/HCPCS: 87636

== ENCOUNTER 2025-01-26 11:35 | Emergency (ER) | payer MEDICARE, MEDICAID, SELFPAY ==
--- NOTE | 2025-01-26 12:27 | CT_ITS ---
FINAL REPORT TECHNIQUE: NASCET technique utilized for stenosis evaluation. This study was performed with techniques to keep radiation doses as low as reasonably achievable, (ALARA). Individualized dose reduction techniques using automated exposure control or adjustment of mA and/or kV according to the patient's size were employed. CLINICAL HISTORY: MERIDA R, L lisa/RLE sensory changes FINDINGS: RIGHT CAROTID: No significant stenosis is seen of the cervical common or internal carotid artery. LEFT CAROTID: No significant stenosis seen of the cervical common or internal carotid artery. VERTEBRALS: The vertebral arteries are symmetric and patent. No significant stenosis is present. IMPRESSION: No significant arterial abnormality. Reviewed, Interpreted and Dictated by Carlos Kwong MD Transcribed by Betty Cyr Authenticated and [facility]
--- NOTE | 2025-01-26 12:27 | CT_ITS ---
FINAL REPORT TECHNIQUE: Axial CT images were performed through the head. Coronal reformatted images were submitted. This study was performed with techniques to keep radiation doses as low as reasonably achievable (ALARA). Individualized dose reduction techniques using automated exposure control or adjustment of mA and/or kV according to the patient's size were employed. CLINICAL HISTORY: seevere R MERIDA FINDINGS: The ventricles are normal in size. There is no evidence of hemorrhage. There is no mass or edema identified. There is no abnormal extra-axial fluid seen. The sinuses are well aerated. IMPRESSION: No acute intracranial process. Reviewed, Interpreted and Dictated by Carlos Kwong MD Transcribed by Betty Cyr Authenticated and [facility]
--- NOTE | 2025-01-26 12:27 | CT_ITS ---
FINAL REPORT TECHNIQUE: thin section axial CT with and without IV contrast supplemented with multiplanar 3-D reconstruction of the head. This study was performed with techniques to keep radiation doses as low as reasonably achievable, (ALARA)individualized dose reduction techniques using automated exposure control or adjustment of mA and/or kV according to the patient's size were employed. CLINICAL HISTORY: severe R MERIDA, L sensory and RLE sensory changes FINDINGS: The cranial circulation is unremarkable. There is no significant stenosis, aneurysm or occlusion. IMPRESSION: No evidence of aneurysm or major branch occlusion. Reviewed, Interpreted and Dictated by Carlos Kwong MD Transcribed by Betty Cyr Authenticated and [facility]
[2025-01-26 12:30] VITALS: BP 115/65; PULSE 94; RESP 16; TEMP 36.8; O2SAT 95; BMI 26.9
--- NOTE | 2025-01-26 12:30 | CT_ITS ---
FINAL REPORT TECHNIQUE: The patient was injected with IV contrast. Axial images were obtained through the chest in a PE protocol. 3-D reconstruction images were also performed. Individualized dose reduction techniques using automated exposure control or adjustment of the MA and/or KV according to patient's size were employed. CLINICAL HISTORY: CP/L sensory changes FINDINGS: Mediastinal vasculature is adequately opacified. No pulmonary artery filling defects are identified to suggest PE. There is no aortic dissection. There is no axillary adenopathy. There is no hilar or mediastinal adenopathy. The heart size is normal. There is no pericardial or pleural effusion. Limited images of the upper abdomen are unremarkable. No suspicious infiltrate or nodule is identified. IMPRESSION: No pulmonary embolus or dissection. Reviewed, Interpreted and Dictated by Carlos Kwong MD Transcribed by Betty Cyr Authenticated and [facility]
--- NOTE | 2025-01-26 12:31 | ED_ITS ---
Discharge Plan Disposition Patient Disposition: Home, Self-Care Prescriptions Prescriptions: No Action aspirin [Adult Low Dose Aspirin] 81 mg tablet,delayed release (DR/EC) 81 mg PO DAILY ascorbic acid (vitamin C) 250 mg tablet 250 mg PO DAILY valacyclovir 500 mg tablet 500 mg PO BID Qty: 180 1RF fluticasone propionate 50 mcg/actuation spray,suspension 1 spray intranasal DAILY Qty: 16 2RF Rx Instructions: administer into each nostril nitroglycerin 0.4 mg tablet, sublingual buccal Patient Comments: DISSOLVE 1 TABLET UNDER THE TONGUE NEEDED FOR CHEST PAIN. REPEAT EVERY 5 MINUTES 3 TIMES. IF NO RELIEF GO TO ER. diclofenac sodium 1 % gel 2 g topical QID Qty: 100 5RF Rx Instructions: apply to single elbow, wrist or hand; for hand includes palm/fingers/back of hand varenicline tartrate 1 mg tablet 1 mg PO BID Patient Comments: TAKE 1 TABLET BY MOUTH TWICE DAILY. ondansetron HCl 4 mg tablet 4 mg PO Q8H PRN (Reason: nausea and vomiting) Qty: 20 0RF chlorthalidone 25 mg tablet 25 mg PO DAILY Qty: 30 2RF epinephrine [EpiPen] 0.3 mg/0.3 mL auto-injector 0.3 mg IM Q4H PRN (Reason: anaphylaxis) Qty: 2 1RF gabapentin 800 mg tablet 800 mg PO QID Patient Comments: TAKE 1 & 1/2 TABLETS BY MOUTH 4 TIMES A DAY FOR 30 DAYS ibuprofen 800 mg tablet 800 mg PO Q8H PRN (Reason: pain) Qty: 60 1RF promethazine-DM 6.25-15 mg/5 mL syrup 5 ml PO Q4-6H PRN (Reason: cough) Qty: 240 0RF methylprednisolone 4 mg tablets,dose pack See Rx Instructions PO PER PKG DIR Qty: 21 0RF Rx Instructions: PO PER PKG DIR amoxicillin-pot clavulanate 875-125 mg tablet 1 tab PO BID Qty: 20 0RF tadalafil 20 mg tablet See Rx Instructions .ROUTE .COMPLEX Qty: 30 5RF Dose Instruction: TAKE 1 TABLET BY MOUTH 30 MINUTES BEFORE SEXUAL ACTIVITY. DO NOT USE MORE THAN 1 TABLET PER 24 HOURS Rx Instructions: TAKE 1 TABLET BY MOUTH 30 MINUTES BEFORE SEXUAL ACTIVITY. DO NOT USE MORE THAN 1 TABLET PER 24 HOURS mometasone 0.1 % cream See Rx Instructions .ROUTE .COMPLEX Qty: 45 2RF Dose Instruction: APPLY TOPICALLY TO AFFECTED AREA 2 TIMES DAILY Rx Instructions: APPLY TOPICALLY TO AFFECTED AREA 2 TIMES DAILY cholecalciferol (vitamin D3) 125 mcg (5,000 unit) tablet 125 mcg PO DAILY Qty: 30 5RF albuterol sulfate 90 mcg/actuation HFA aerosol inhaler See Rx Instructions .ROUTE .COMPLEX Qty: 8.5 2RF Dose Instruction: Inhale 2 Puffs into the lungs every 6 hours as needed for shortness of breath or wheezing. Rx Instructions: Inhale 2 Puffs into the lungs every 6 hours as needed for shortness of breath or wheezing. duloxetine 60 mg capsule,delayed release(DR/EC) 60 mg PO DAILY Qty: 30 2RF aripiprazole [Abilify] 5 mg tablet 5 mg PO DAILY Qty: 30 2RF budesonide 3 mg capsule,delayed,extend.release See Rx Instructions .ROUTE .COMPLEX Qty: 90 2RF Dose Instruction: Take 3 Capsules by mouth once daily. Rx Instructions: Take 3 Capsules by mouth once daily. mesalamine 0.375 gram capsule,extended release 24hr 1.5 g PO DAILY Qty: 360 3RF dextroamphetamine-amphetamine [Adderall] 30 mg tablet 30 mg PO BID Qty: 60 0RF esomeprazole magnesium 40 MG capsule,delayed release(DR/EC) 40 mg PO DAILY Referrals Follow up/Referrals: Melonie Kent APRN [Primary Care Provider, Family Practice] - See instructions Cody More MD [Staff Physician, Cardiology] - See instructions Activity Restrictions/Add. Instructions Additional Instructions/Restrictions: At this time it was felt you are safe to be discharged home. If new or worsening symptoms please do not hesitate to return the emergency department. As discussed please follow-up with your family doctor within 1 week as I think you will likely benefit from getting an MRI. If you have any recurrence of symptoms please present to the emergency department immediately so we can continue looking into this. If you have new onset chest pain again please come back to the emergency department. Otherwise please call and schedule appoint with Dr. More as soon as you are able. Clinical Impressions Clinical Impression: Headache, Chest pain, Paresthesias Print Language Print Language: Spanish Discharge ED Provider: Jose Maria Charlton General Chief Complaint: Chest Pain Stated Complaint: R leg numbness, headache Time Seen by Provider: 01/26/25 12:12 History of Present Illness HPI narrative: Patient is a 44-year-old male with past medical history of Crohn's disease who presents to the emergency department for evaluation of headache and altered sensorium. Onset was acute over the last 72 hours. Right-sided headache moderate to severe in intensity, no vision changes initially although he woke up with slight blurry vision bilaterally today his vision is back to his baseline corrected. He had left-sided sensory changes with decreased sensation in his left face left upper extremity left lower extremity which have since lessened however his headache has become severe and he now has right-sided lower extremity sensory changes causing him to become concerned and presented for continued evaluation. No speech difficulty. He has had stuttering chest pain that does not radiate through his back to throughout the course. No trauma. No gait difficulties reported. No other acute complaints at this time. Please note that above description of symptoms, in this electronic medical record under categorization of recalled from ER triage doctor by RN are reflective of an initial nursing assessment, however, is not reflective of my full history and physical exam that was personally taken and clarified. Consequentially, this preceding description of symptoms, which may include the patient's categorized chief complaint in the EMR, do not reflect my personal clinical impression, and the ultimate description of history of present illness and patient stated complaints should be deferred to this section of the note. Unless stated otherwise or congruent with this section of the note, additional signs, symptoms, or incongruence should be interpreted as inaccurate with my clinical impression. Related Data Home Medications ?Medication ?Instructions ?Recorded ?Confirmed esomeprazole magnesium 40 mg 40 mg PO DAILY GERD 07/1812/27/24 capsule,delayed release ascorbic acid (vitamin C) 250 mg 250 mg PO DAILY 10/0912/27/24 tablet aspirin 81 mg tablet,delayed 81 mg PO DAILY 10/09/22 1 02/27/24 release (Adult Low Dose Aspirin) gabapentin 800 mg tablet 800 mg PO QID 11/25/2312/27 nitroglycerin 0.4 mg sublingual mg buccal 03/19/2412/11 tablet varenicline tartrate 1 mg tablet 1 mg PO BID 07/20/24 12/27/24 Previous Rx's ?Medication ?Instructions ?Recorded valacyclovir 500 mg tablet 500 mg PO BID #180 tabs 07/10 tadalafil 20 mg tablet See Rx Instructions .Route 1 03/28/23 .COMPLEX #30 tabs fluticasone propionate 50 1 spray intranasal DAILY #16 grams 02/17/24 mcg/actuation nasal spray,suspension diclofenac sodium 1 % topical gel 2 g topical QID #100 grams 03/19/24 mometasone 0.1 % topical cream See Rx Instructions .Ro [place] 03/22/24 .COMPLEX #45 grams cholecalciferol (vitamin D3) 125 125 mcg PO DAILY #30 tabs 05/06/24 mcg (5,000 unit) tablet albuterol sulfate 90 mcg/actuation See Rx Instructions .Route 06/02/24 aerosol inhaler .COMPLEX #8.5 grams ondansetron HCl 4 mg tablet 4 mg PO Q8H PRN nausea and 06/14/24 vomiting #20 tabs ibuprofen 800 mg tablet 800 mg PO Q8H PRN pain #60 t abs 08/10/24 aripiprazole 5 mg tablet (Abilify) 5 mg PO DAILY #30 t abs 08/21/24 duloxetine 60 mg capsule,delayed 60 mg PO DAILY #30 ca ps 08/21/24 release budesonide 3 mg See Rx Instructions .Route 0 09/15/24 capsule,delayed,extended release .COMPLEX #90 caps chlorthalidone 25 mg tablet 25 mg PO DAILY #30 tabs epinephrine 0.3 mg/0.3 mL 0.3 mg (0.3 mL) IM Q4H PRN 0 09/20/24 injection, auto-injector (EpiPen) anaphylaxis #2 ea dextroamphetamine-amphetamine 30 30 mg PO BID #60 tabs 09/28/24 mg tablet (Adderall) mesalamine 0.375 gram 1.5 g (4 x 0.375 gram) PO DA GERALDINE 09/28/24 capsule,extended release 24 hr #360 caps amoxicillin 875 mg-potassium 1 tab PO BID #20 tabs 12/11 clavulanate 125 mg tablet methylprednisolone 4 mg tablets in See Rx Instructions PO PER PKG DIR 12/27/24 a dose pack #21 tabs promethazine-DM 6.25 mg-15 mg/5 mL 5 ml PO Q4-6H PRN c ough #240 mL 12/27/24 oral syrup Allergies Allergy/AdvReac Type Severity Reaction Status Date / Time bee venom protein (honey bee) Allergy Severe Anaphylaxis Verified 12/27/24 10:33 cephalexin (From KEFLEX) Allergy Unknown ITCHING Verified 12/27/24 10:33 morphine (MORPHINE) Allergy Unknown HEADACHE Verified 12/27/24 10:33 sulfamethoxazole (From Allergy Unknown BREATHING Verified 12/27/24 10:33 BACTRIM) trimethoprim (From BACTRIM) Allergy Unknown BREATHING Verified 12/27/24 10:33 [facility] Disclaimer: The information contained in this section may have been updated after the patient was seen, as this information can be updated by other users. 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 Pulmonary hypertension Urinary hesitancy Vitamin B12 deficiency Prediabetes Hypertriglyceridemia Essential hypertension Surgical History History of ankle surgery History of eye surgery Family History Grandmother Stroke Father Coronary artery disease Social History Smoking Status: Current every day smoker tobacco type: cigarettes packs per day: 1 alcohol intake: never substance use type: heroin current occupational status: disabled Travel in the last 8 weeks?: Inside the [place] Have you lived/traveled outside [place] in past 30 days?: No Contact w/someone who lives/traveled outside [place] past 30 days?: No Exposure to someone with infectious disease in past 14 days?: No Do you have a fever (greater than 100.4 F or 38 C)?: No Have you tested positive for COVID-19?: No Exposed to someone with COVID-19 in past 14 days?: No Do you have a sore throat?: No Do you have a cough?: No Do you have any weakness?: No Do you have any diarrhea?: No Are you experiencing any unusual bleeding?: No Do you have any muscle aches/pain?: No Do you have any abdominal pain?: No Are you experiencing loss of taste or smell?: No Other Medical History Have you received the Flu Vaccine for this season: No Have you received the Pneumonia Vaccine: No ROS Obtained: Yes Systems reviewed as appropriate & no additional complaints except as documented Physical Exam General General appearance: alert and in no apparent distress Head Head exam: atraumatic and normocephalic Eye Eye exam: Present PERRL and EOMI ENT ENT exam: Present mucous membranes moist Neck Neck exam: Present normal inspection Chest Chest inspection: Present normal inspection and symmetric chest wall rise Respiratory Respiratory exam: Present normal lung sounds bilaterally; Absent respiratory distress Cardiovascular Cardiovascular exam: Present regular rate and normal rhythm Abdominal Exam Abdominal exam: Present soft; Absent tenderness Extremities Exam Extremities exam: Present normal inspection Neurological Exam Neurological exam: Present alert, CN II-XII intact and motor sensory deficit (Decreased sensation left lower extremity, 5 out of 5 strength bilateral upper and lower extremities) Psychiatric Psychiatric exam: Present normal affect Skin Skin exam: Present warm and dry HEART Score HEART Score HEART Score assessment performed?: Yes History (anamnesis): Moderately suspicious ECG: Non-specific disturbance Age: 45-65 years Risk factors: 1-2 risk factors Troponin: </= normal limit HEART Score: 4 Critical Care Critical Care Time Critical Care Time: No Medical Decision Making Andrea Inquiry Pt receiving controlled substance: No Vital Signs Vital Signs: 01/26/25 12:30 01/26/25 12:30 01/26/25 13:00 Temperature 98.3 F 98.3 F Temperature Source Oral Oral Pulse Rate 94 H Pulse Rate [Right] 94 H Respiratory Rate 16 16 23 Blood Pressure 115/65 116/74 Blood Pressure [Right Arm] 115/65 Blood Pressure Mean [Right Arm] 81 Blood Pressure Source Automatic Cuff Blood Pressure Source [Right Arm] Automatic Cuff Blood Pressure Position Supine Blood Pressure Position [Right Arm] Supine 02 Sat by Pulse Oximetry 95 95 Oxygen Delivery Method Room Air Room Air 01/26/25 13:02 01/26/25 13:30 01/26/25 14:00 Temperature Temperature Source Pulse Rate 90 80 Pulse Rate [Right] Respiratory Rate 20 16 Blood Pressure 100/52 L Blood Pressure [Right Arm] Blood Pressure Mean [Right Arm] Blood Pressure Source Blood Pressure Source [Right Arm] Blood Pressure Position Blood Pressure Position [Right Arm] 02 Sat by Pulse Oximetry 97 Oxygen Delivery Method Room Air Lab Data Labs: Lab Results 01/26/25 12:10: WBC 12.4 H, RBC 5.05, Hgb 14.9, Hct 45.1, MCV 89.3, MCH 29.5, MCHC 33.0, RDW 15.3, Plt Count 333, MPV 9.6, Neut % (Auto) 76.2, Lymph % (Auto) 13.1, Metcalfe % (Auto) 8.5, Eos % (Auto) 0.9, Baso % (Auto) 0.5, Neut # (Auto) 9.4 H, Lymph # (Auto) 1.6, [place] # (Auto) 1.1 H, Eos # (Auto) 0.1, Baso # (Auto) 0.1, ESR 8, Sodium 140, Potassium 4.2, Chloride 101, Carbon Dioxide 30, Anion Gap 13.2, BUN 15, Creatinine 1.20, Estimated GFR 65, Est GFR ( Amer) 79, Glucose 87, Calcium 9.0, Magnesium 2.1, Total Bilirubin 0.5, AST 36, ALT 23, Alkaline Phosphatase 121, Troponin I < 0.01, C-Reactive Protein 6.3 H, Total Protein 6.6, Albumin 3.8, Globulin 2.8, Albumin/Globulin Ratio 1.4 01/26/25 12:10 01/26/25 12:10 Response Orders (Tests/Meds): ED MEDICATIONS Discontinued Medications Generic Name Dose Route Start Last Admin Trade Name Freq PRN Reason Stop Dose Admin Acetaminophen 1,000 mg 01/26/25 12:29 01/26/25 12:41 Acetaminophen 1,000mg/100ml Vial IV 01/26/25 12:30 1,000 mg ONCE ONE Administration Diphenhydramine HCl 50 mg 01/26/25 12:29 01/26/25 12:41 Diphenhydramine 50mg/Ml Vial IV 01/26/25 12:30 50 mg ONCE ONE Administration Iopamidol 160 ml 01/26/25 13:13 01/26/25 13:15 Iopamidol-370 (76%);100ml Bottle IV 01/26/25 13:14 160 ml ONCE ONE Administration Prochlorperazine Edisylate 5 mg 01/26/25 12:29 01/26/25 12:41 Prochlorperazine 10mg/2ml Vial IV 01/26/25 12:30 5 mg ONCE ONE Administration Sodium Chloride 100 ml 01/26/25 13:13 01/26/25 13:15 0.9 % Sodium Chloride 50 Ml Vial IV 01/26/25 13:14 100 ml ONCE ONE Administration Sodium Chloride 10 ml 01/26/25 13:13 01/26/25 13:15 Sodium Chloride 0.9% 10ml Syr (Rad Only) IV 01/26/25 13:14 10 ml ONCE ONE Administration ORDERS Category Date Time Status CT angio chest - dissection Stat Cat Scan 01/26/25 12:[address] angio head Stat Cat Scan 01/26/25 12:[address] angio neck Stat Cat Scan 01/26/25 12:[address] head/brain wo con Stat Cat Scan 01/26/25 12:27 Completed CBC w/Auto Diff [Complete Blood Count Auto Diff] Stat Lab 01/26/25 12:10 Completed CMP [Comprehensive Metabolic Panel] Stat Lab 01/26/25 12:10 Completed CRP [C-Reactive Protein] Stat Lab 01/26/25 12:10 Completed ESR [Erythrocyte Sedimentation Rate] Stat Lab 01/26/25 12:10 Completed HIV Combo Stat Lab 01/26/25 12:10 Received Hepatitis C Ab Qual. W/ RFX Stat Lab 01/26/25 12:10 Received MG [Magnesium] Stat Lab 01/26/25 12:10 Completed Trop I [Troponin I] Stat Lab 01/26/25 12:10 Completed Troponin I Q3H Lab 01/26/25 15:30 Ordered Troponin I Q3H Lab 01/26/25 18:30 Ordered ECG Data Tracing #1: ECG Narrative: Independently interpreted by me rate is 87, rhythm is regular, axis is normal, no ST elevation in anatomical contiguous leads, QTc 384. MDM Narrative Medical Decision Narrative: In summary patient is a 44-year-old male with past medical history described above who presents to the emergency department for evaluation of headache, altered sensorium. Patient is hemodynamically stable and nontoxic-appearing upon arrival, afebrile. Workup is broad given that differential clues intracranial mass, critical intracranial or cervical artery stenosis, CVA, ACS, among others. Workup will be conducted with hematologic labs, noncontrasted CT scan of the head CT of the head, neck, chest. Initial inventions include headache cocktail. Patient does not have chest pain currently although it has been waxing and waning throughout the course. EKG will be obtained. Initial workup reviewed by me no significant leukocytosis no transfusable anemia no elevated ESR no GOLD or critical electrolyte abnormality initial troponin undetectably low. Noncontrasted CT scan of the head informally visualized by me, no acute large intracranial hemorrhage. CT imaging nonactionable. No critical stenosis no acute intracranial hemorrhage, no intrathoracic acute abnormality. For initial nursing evaluation patient had intermittent decreased sensation in his right lower extremity. Upon repeat evaluation patient has resolution of symptoms no longer has a headache is sensory symptoms are improved and he is ambulatory at baseline, has never had dysarthria or aphasia no vision changes. Variable lower extremity paresthesias without a definitive persistent vascular distribution make stroke less likely in my opinion. He has not had chest pain in the emergency department. Given intracranial hemorrhage has been ruled out full dose aspirin administered although I do not think patient is having ACS. Given this I feel the patient is appropriate for outpatient management at this time but instructed him to follow-up with his PCP as I think he will likely benefit from MRI and if he has any recurrence of symptoms he will present to the emergency department immediately.
[2025-01-26 12:34] LABS: Hematocrit 45.1 % (42.0-52.0); Hemoglobin 14.9 g/dL (14.1-18.0); Immature Granulocytes % 0.8 %; Mean Corpuscular HGB Conc 33.0 g/dL (31.8-35.4); Mean Corpuscular Hemoglobin 29.5 pg (27.0-31.2); Mean Corpuscular Volume 89.3 fl (80-94); Nucleated Red Blood Cells % 0 %; Platelet Count 333 K/mm3 (142-424); Red Blood Count 5.05 M/mm3 (4.60-6.20); Red Cell Distribution Width-SD 49.7 fL; White Blood Count 12.4 K/mm3 (4.8-10.8)
--- NOTE | 2025-01-26 12:38 | ECG_ITS ---
APPROVED REPORT Exam: Resting ECG HR:87 bpm ECG Measurements Heart Rate 87 AXES WV 157 P 57 QRSd 85 QRS -5 QT 340 T 52 QTc 384 Conclusion SINUS RHYTHM LOW QRS VOLTAGE IN PRECORDIAL LEADS [QRS DEFLECTION < 1.0 mV IN CHEST LEADS] POSSIBLE ANTERIOR MYOCARDIAL INFARCTION , OF INDETERMINATE AGE [30 ms Q WAVE IN V3/V4, OR R < 0.2 mV IN V4] No STEMI Electronically signed by : ANNELISE LITTLE, 01/28/2025 06:55:37
[2025-01-26] MEDS: PROCHLORPERAZINE 10MG/2ML VIAL 5 MG IV (12:41)
[2025-01-26] MEDS: ACETAMINOPHEN 1,000MG/100ML VIAL 1000 MG IV (12:41)
[2025-01-26 12:51] LABS: Alanine Aminotransferase 23 U/L (12-78); Albumin Level 3.8 g/dl (3.5-5.0); Albumin/Globulin Ratio 1.4 (1.1-1.8); Alkaline Phosphatase 121 U/L (38-126); Anion Gap 13.2 mEq/L (5-15); Aspartate Amino Transferase 36 U/L (17-59); Bilirubin,Total 0.5 mg/dl (0.2-1.3); Blood Urea Nitrogen 15 mg/dl (9-20); Calcium 9.0 mg/dl (8.4-10.2); Carbon Dioxide 30 mmol/L (22.0-30.0); Chloride 101 mmol/L (98-107); Creatinine,Serum 1.20 mg/dl (0.66-1.25); Estimated Glomerular Filt Rate 65 ml/min (>60); GFR (African American) 79 ML/MIN (>60); Globulin 2.8 g/dL (1.3-3.2); Glucose 87 mg/dl (74-100); Magnesium 2.1 mg/dl (1.6-2.3); Potassium 4.2 mmoL/L (3.5-5.1); Sodium 140 mmol/L (136-145); Total Protein,Serum 6.6 g/dl (6.3-8.2)
[2025-01-26 12:56] LABS: C-Reactive Protein 6.3 mg/L (0-4)
[2025-01-26 13:00] VITALS: BP 116/74; RESP 23
[2025-01-26 13:02] VITALS: PULSE 90
[2025-01-26] MEDS: 0.9 % SODIUM CHLORIDE 50 ML VIAL 100 ML IV (13:15)
[2025-01-26] MEDS: SODIUM CHLORIDE 0.9% 10ML SYR (RAD ONLY) 10 ML IV (13:15)
[2025-01-26] MEDS: IOPAMIDOL-370 (76%);100ML BOTTLE 160 ML IV (13:15)
[2025-01-26 13:30] VITALS: PULSE 80; RESP 20; O2SAT 97
[2025-01-26 13:30] LABS: Troponin I < 0.01 ng/ml (0.00-0.034)
[2025-01-26 14:00] VITALS: BP 100/52; RESP 16
[2025-01-26 14:33] LABS: Hepatitis C Ab Qual. W/ RFX NEGATIVE (Negative)
[2025-01-26] MEDS: ASPIRIN 81MG CHEWABLE TABLET 324 MG PO (14:38)
[2025-01-26 14:44] VITALS: BP 100/52; PULSE 83; RESP 20; TEMP 36.6; O2SAT 100
== END 2025-01-26 14:49 | disposition home or self-care (01) ==
PROVIDERS: Emergency Provider Emergency Medicine; PCP Nurse Practitioner
DX: R07.89 Other chest pain (principal); R51.9 Headache, unspecified; R20.2 Paresthesia of skin; F17.210 Nicotine dependence, cigarettes, uncomplicated; I10 Essential (primary) hypertension; E78.5 Hyperlipidemia, unspecified
CPT/HCPCS: 70450; 70496; 70498; 71275; 80053; 83735; 84484; 85025; 85651; 86140; 86803; 87389; 93005; 96374; 96375; 99285; J0131; J0780; J1200; Q9967

== ENCOUNTER 2025-02-01 14:31 | Outpatient (CLI) | payer MEDICARE, MEDICAID, SELFPAY ==
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
[2025-02-01 19:00] LABS: Coronavirus 19, PCR Not Detected (NotDetected); Influenza A, PCR Not Detected (NotDetected); Influenza B, PCR Not Detected (NotDetected)
--- OUTSIDE RECORDS SUMMARY | 2025-02-02 12:41 | XMS_ITS | Encounter Summary ---
Author Organization [facility] [place] [address] Care Team Providers Care Director Clinical Operations Name Role Phone Brayden Khan MD Unavailable [phone] Rama Dowell MD Unavailable Unavailable Devin Farias MD Unavailable [phone] Melonie Kent APRN Primary Care Provider [phone] Encounter Details Date Type Department Care Team (Latest Contact Info) Description 01/29/2025 Travel Social History Tobacco Use Types Packs/Day [...] medical care, and heating? Somewhat hard 01/29/2025 [place] [facility] - Occupational Stress Questionnaire Answer Date Recorded [...] money to get more. Never true 01/29/2025 [facility] Utilities Answer Date Recorded In the past 12 months has th e electric, gas, oil, or water company threatened to shut off services in your home? No 01/29/2025 [facility] IP Transportation Answer D ate Recorded In [...] doing things 2 01/29/2025 12:44 PM EST Warning, Lucrecia Paniagua RN Feeling down, depressed, or hopeless 1 01/29/2025 12:44 PM EST Warning, Lucrecia Paniagua RN PHQ-2 Total Score 3 01/29/2025 12:44 PM EST [place], Lucrecia Paniagua RN PHQ-9 Total Score 3 [...] 11:00 AM EDT Office [place] [address] Devin Farias MD [address] [place] [address] documented as of this encounter Goals Goal [...] Diagnoses Not on filedocumented in this encounter Additional Health Concerns Assessment Noted Time PHQ-9 Depression Total Score: 3 01/30/20 25 12:44 PM EST PHQ-2 Depression Total Score: 3 01/30/20 25 12:44 PM EST documented as of this encounter Care Teams Director Clinical Operations Relationship Specialty Start Date End Date Melonie Kent APRN [address] [facility] [address] [facility] [place] [phone] PCP - General Nurse Practitioner 04/27/24 Brayden Khan MD Internal Medicine-Gastroenterology 11/27/12 Rama Dowell MD Internal Medicine-Gastroenterology 12/23/12 Devin Farias MD [address] [place] [address] [place] [address] Internal Medicine-Interventional Cardiology 08/22/22 documented as of this encounter
--- OUTSIDE RECORDS SUMMARY | 2025-02-02 12:41 | XMS_ITS | Clinical Summary ---
Author Organization [employer] [facility] Address [address] [place] [address] Phone Care Team Providers Care Marine Firefighter Name Role Phone Unavailable Unavailable Conditions or Problems No information available. Medications No information available. Medications Administered No information available. Allergies, Adverse Reactions, Alerts No information available. Results No information available. Plan of Care No information available. Procedures No information available. Vital Signs No information available. Immunizations No information available. Advance Directives No information available.
--- OUTSIDE RECORDS SUMMARY | 2025-02-02 12:41 | XMS_ITS | Clinical Summary ---
Author Organization [facility] Address [address] [place] [address] Care Team Providers Care Fiber Design Engineer Name Role Phone Pcp, No Primary Care Provider [phone] Source Comments This information has been [...] therelease of HIV test results or diagnoses. [id number] Allergies Active Allergy Reactions Criticality Noted Date Comments Adalimumab 07/14/2014 Clarence like had a virus, Joint pain fatigue Clarence like had a virus, Joint pain fatigue [...] - 92 mg/dL 11/27/2017 5:18 AM EDT [facility] Comment: LIPID PROFILE INTERPRETATION CHOLESTEROL,TOTAL(mg/dL) DESIRABLE: [...] Cholesterol 57 mg/dL 8 5:18 AM EDT [facility] Plasma specimen (specimen) 11/27/2017 4:30 AM EDT 11/27/2017 4:51 AM EDT us Chapincito Winston MD LAB BLOOD ORDERABLES F inal Result [facility] [address] [place] [address], [facility] from Last 3 Months or Most Recently Relevant to Health Maintenance Insurance [employer]US MEDICARE [facility] Care Address: [address] [address] [place] [id number] Advance Directives For more information, please contact: [phone] * Full Code (Latest Code Status on File) Date Activated Date Inactivated Comments 11/27/2017 3:31 AM 11/27/2017 4:34 PM Care Teams Fiber Design Engineer Relationship Specialty Start Date End Date Pcp, No No Address PCP - General 05/26/23
--- OUTSIDE RECORDS SUMMARY | 2025-02-02 12:41 | XMS_ITS | Clinical Summary ---
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 150837944 (SNOMED CT) 02/22 Active 02/22 Juvencio Cortez Osteoarthritis of spinal facet joint PERIPHERAL NEUROPATHY 159674695 (SNOMED CT) Active William Robertson MA Peripheral nerve disease BACK PAIN, THORACIC REGION 259476598 (SNOMED CT) 10/19 Active 10/19 Marie Vocke Thoracic back pain BACK PAIN, LUMBAR, WITH RADICULOPATH Y 387834637 (SNOMED CT) 10/19 Active 10/19 Marie Vocke Lumbar radiculopathy Medications Medication Instructions Start Date Stop Date Generic Name ND Provider [facility] VITAMIN C TABS ASCORBIC ACID TABS 23477082136 July iMke REYES GNP VITAMIN D TABS CHOLECALCIFEROL TABS [id number] July Mike REYES [facility] [place] SOLN OXYMETAZOLINE HCL SOLN [id number] July Mike REYES ZYRTEC ALLERGY TABS CETIRIZINE HCL TABS 47195855825 July Mike REYES TYLENOL CAPS ACETAMINOPHEN CAPS [id number] Alyse Mike REYES FUROSEMIDE 20 MG TABS FUROSEMIDE 12727842526 Alyse Mckeon RN ACYCLOVIR TABS ACYCLOVIR TABS [id number] July Mike RN NEXIUM 40 MG PACK ESOMEPRAZOLE MAGNESIUM 12692201194 July Mike RN ENTOCORT EC CAPSULE DELAYED RELEASE PARTICLES BUDESONIDE CPEP 52393668605 July Mike RN PENTASA CR-CAPS MESALAMINE CR-CAPS [id number] July Mike RN GABAPENTIN TABS GABAPENTIN TABS 04705115689 July Mike RN ADDERALL 30 MG TABS AMPHETAMINE-DEXTRO AMPHETAMINE 81306671110 July Mike RN ABILIFY 2 MG TABS ARIPIPRAZOLE [id number] July Mike RN CYMBALTA 60 MG ORAL CAPSULE DELAYED RELEASE PARTICLES DULOXETINE HCL [id number] July Mike REYES ALPRAZOLAM TABS ALPRAZOLAM TABS [id number] July Mike RN PERCOCET 10-325 MG TABS Non-[place] OXYCODONE-ACETAMIN OPHEN [id number] July Mike RN BACTRIM TABS Non-[place] SULFAMETHOXAZOLE-T RIMETHOPRIM TABS 65750043885 July Mike REYES BACTRIM TABS [facility] SULFAMETHOXAZOLE-T RIMETHOPRIM TABS [id number] Juvencio Cortez PERCOCET 10-325 MG TABS [facility] OXYCODONE-ACETAMIN OPHEN [phone] Narcisoer Cortez Medications Administered No information available. [...] Procedures Code Procedure Name Date Entry Date 90852 EMG w/ NCS, Complete, 1 Extremity CPT-160 83 0209/10/16 62844 Nerve Conduction Study (5-6 studies) CPT- 54840 98275 MRI Lumbar Spine 05674 MRI Thoracic Spine 2 Vital Signs Date [...]
--- OUTSIDE RECORDS SUMMARY | 2025-02-02 12:42 | XMS_ITS | Clinical Summary ---
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 SIGHT ATTACHER ENDOSCOPY PROCEDURE ORD ERABLES Final Result from Last 3 Months or Most Recently Relevant to Health Maintenance Insurance [place] MED[place]MO [place] H[place] MEDICARE HMO [place] Advance Directives For more information, please contact: [phone] * Full Code (Latest Code Status on File) Date Activated Date Inactivated Comments 01/29/2025 2:41 AM 01/30/2025 11:06 PM * Full Code Date Activated Date Inactivated Comments 12/12/2022 2:41 PM 12/12/2022 8:51 PM * Full Code Date Activated Date Inactivated Comments 07/29/2020 5:20 PM 07/30/2020 8:11 PM * Full Code Date Activated Date Inactivated Comments 12/01/2018 10:21 PM 12/03/2018 1:00 PM * Full Code Date Activated Date Inactivated Comments 05/24/2018 11:53 PM 05/27/2018 9:56 PM Care Teams Backup Administrator Relationship Specialty Start Date End Date Melonie Kent APRN [facility] [address] [place] [phone] PCP - General Nurse Practitioner 04/27/24 Elena Khan MD Internal Medicine-Gastroenterology 11/27/12 Rama Dowell MD Internal Medicine-Gastroenterology 12/23/12 Devin Farias MD [address] [place] [address] Internal Medicine-Interventional Cardiology 08/22/22
--- OUTSIDE RECORDS SUMMARY | 2025-02-02 12:42 | XMS_ITS | Encounter Summary ---
[facility] Address [address] [place] [address] Care Team Providers Care Food Production Supervisor Name Role Phone Brayden Khan MD Unavailable Rama Dowell MD Unavailable Unavailable Devin Farias MD Unavailable [phone] Melonie Kent APRN Primary Care Provider [phone] Reason for Visit * Reason Comments Medication Refill Encounter Details Date Type Department Care Team (Late st Contact Info) Description 01/01/2025 Refill [facility] [address] [place] [address] Riya Ocampo APRN [address] [place] [address] Medication Refill Social History Tobacco [...] every morning before breakfast. 30 Capsule 01/03/2025 documented in this encounter Plan of Treatment Upcoming Encounters Date Type Department Care Team (Late st Contact Info) Description 05/30/2025 11:00 AM EDT Office [place] [address] Devin Farias MD [address] [place] [address] documented as of this encounter Goals Goal [...] Capsule by mouth every morning before breakfast. 10/29/2024 01/03/2025 documented as of this encounter Care Teams Food Production Supervisor Relationship Specialty Start Date End Date Melonie Kent APRN [address] [facility] [address] [phone] PCP - General Nurse Practitioner 04/27/24 Brayden Khan MD Internal Medicine-Gastroenterology 11/27/12 Rama Dowell MD Internal Medicine-Gastroenterology 12/23/12 Devin Farias MD [address] [place] [address] [id number] Internal Medicine-Interventional Cardiology 08/22/22 documented as of this encounter
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
--- OUTSIDE RECORDS SUMMARY | 2025-02-02 12:42 | XMS_ITS | Clinical Summary ---
Author Organization [facility] Address [address] [place] [phone] Care Team Providers Care Director Customer Name Role Phone Other, Physician Bina WOODARD [...] patient's age to complete this topic Insurance [facility] MEDICARE ALL OTHER MEDICAID [place] Care Teams Director Customer Relationship Specialty Start Date End Date Other, Physician MD Bina PCP - General Internal Medicine 04/13/18
== END 2025-02-01 23:59 | disposition home or self-care (01) ==
LOC: LAB.DROPOF 02-02 11:04
PROVIDERS: PCP Nurse Practitioner; Visit Provider Nurse Practitioner
DX: J06.9 Acute upper respiratory infection, unspecified (principal)
CPT/HCPCS: 87631

== ENCOUNTER 2025-02-06 03:37 | Emergency (ER) | payer MEDICARE, MEDICAID, SELFPAY ==
--- OUTSIDE RECORDS SUMMARY | 2025-01-28 23:55 | XMS_ITS | Encounter Summary ---
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 (ZOFRAN) injection 4 mg 4 mg, Intravenous, EVERY 4 HOURS PRN, Starting on 01/29/25 at 1015, Until 01/30/25 at 2301, Nausea ondansetron (ZOFRAN) tablet 4 mg 4 mg, Oral, EVERY 4 HOURS PRN, Starting on 01/29/25 at 1015, Until 01/30/25 at 2301, Nausea pantoprazole (PROTONIX) tablet 40 mg 40 mg, Oral, 2 TIMES DAILY, First dose on 01/29/25 at 2145, Until Discontinued, Therapeutic Interchange for NEXIUM 40 mg cap daily Given 01/30/2025 8:54 AM EST 40 mg polyethylene glycol (GLYCOLAX, MIRALAX) packet 17 g 17 g, Oral, 2 TIMES DAILY PRN, Starting on 01/29/25 at 1015, Until 01/30/25 at 2301, Constipation, If multiple oral PRN laxatives/stool softeners ordered, may give per patient preference. sodium chloride 0.9% syringe 50 mL 50 mL, Intravenous, ONCE PRN, 1 dose, Starting on 01/30/25 at 1300, Until 01/30/25 at 1319, Line Care, Use for drug dilution, Flush peripheral lines every 12 hours, central lines every 8 hours, and after IV medication, CT (Contrasts) Given 01/30/2025 1:19 PM EST 50 mL Right Arm sodium chloride 0.9% syringe Intravenous, ONCE PRN, 1 dose, Starting on 01/30/25 at 1300, Until 01/30/25 at 1318, Line Care, Flush peripheral lines every 12 hours, central lines every 8 hours, and after IV medication, CT (Contrasts) Given 01/30/2025 1:18 PM EST 10 mL Right Arm documented in this encounter Discontinued Medications Medication Sig Discontinue Reason Start Date End Da te levoFLOXacin (LEVAQUIN) 500 mg Oral Tablet Stop Taking at Discharge 05/06/2024 025 documented as of this encounter Active and Recently Administered Medications Times are shown in EST. Scheduled Medication Order 01/28/2025 01/29/2025 01/30/2025 ARIPiprazole (ABILIFY) tablet 5 mg 5 mg, Oral, DAILY, First dose on 01/30/25 at 0900, Until Discontinued 0854 (Given - Provid er: Rachel Astudillo RN) aspirin chewable tablet 81 mg 81 mg, Oral, DAILY, First dose on 01/30/25 at 0900, Until Discontinued 0854 (Given - Provid er: Rachel Astudillo RN) budesonide (ENTOCORT EC) capsule 9 mg 9 mg, Oral, DAILY, First dose on 01/30/25 at 0900, Until Discontinued 0854 (Given - Provid er: Rachel Astudillo RN) DULoxetine (CYMBALTA) capsule 30 mg 30 mg, Oral, DAILY, First dose on 01/30/25 at 0900, Until Discontinued 0854 (Given - Provid er: Rachel Astudillo RN) enoxaparin (LOVENOX) injection 40 mg 40 mg, Subcutaneous, DAILY - LMWH/Xa, First dose on 01/29/25 at 1030, Until Discontinued 1458 (Given - Provider: Analy Hicks RN) 1403 (Given - Provider: Rachel Astudillo RN) fluticasone propionate (FLONASE) 50 mcg/actuation nasal spray 1 [place] 1 [place], Nasal, DAILY, First dose on 01/30/25 at 0900, Until Discontinued 1137 (Not Given - Provider: Rachel Astudillo RN - Reason: Patient Declined) gabapentin (NEURONTIN) capsule 1,200 mg 1,200 mg, Oral, 4 TIMES DAILY, First dose on 01/29/25 at 2145, Until Discontinued, Capsules may be opened and contents dissolved in water for administration 2228 (Given - Provider: Mel Padilla RN) 0853 (Given - Provider: Rachel Astudillo RN)1402 (Given - Provider: Rachel Astudillo RN)1700 (Due) isosorbide mononitrate (IMDUR) CR tablet 30 mg 30 mg, Oral, DAILY, First dose on 01/30/25 at 0900, Until Discontinued 0854 (Given - Provid er: Rachel Astudillo RN) Mesalamine Cp24 1.5 g 1.5 g, Oral, DAILY, First dose on 01/30/25 at 0900, Until Discontinued, Patient to use home supply. Pharmacy to verify medication prior to first administration. Notify Pharmacy when medication available to be verified and fill out Medex form #[id number] (Not Given - Provider: Rachel Astudillo RN - Reason: Patient Supplied Medication Not Available) pantoprazole (PROTONIX) tablet 40 mg 40 mg, Oral, 2 TIMES DAILY, First dose on 01/29/25 at 2145, Until Discontinued, Therapeutic Interchange for NEXIUM 40 mg cap daily 2228 (Given - Provider: Mel Padilla RN) 0854 (Given - Provider: Rachel Astudillo RN) PRN Medication Order 01/28/2025 01/29/2025 01/30/2025 acetaminophen (TYLENOL) tablet 650 mg 650 mg, Oral, EVERY 4 HOURS PRN, Starting on 01/29/25 at 1015, Until 01/30/25 at 2301, Pain, Fever, Maximum adult dose of acetaminophen is 4000 mg from all sources in 24 hours. albuterol (PROVENTIL HFA;VENTOLIN HFA) inhaler 2 Puff 2 Puff, Inhalation, EVERY 6 HOURS PRN, Starting on 01/29/25 at 2003, Until 01/30/25 at 2301, Wheezing, Waste Sort Code = BLACK [employer] Waste Container albuterol (PROVENTIL) nebulizer solution 2.5 mg 2.5 mg, Nebulization, EVERY 4 HOURS PRN, Starting on 01/29/25 at 2003, Until 01/30/25 at 2301, Wheezing diclofenac (VOLTAREN) 1 % gel 2 g 2 g, Topical, 2 TIMES DAILY PRN, Starting on 01/29/25 at 2006, Until 01/30/25 at 2301, Other, Pain, joint, Accurately measure prescribed dose with multi-use dose card included with product - DO NOT DISCARD DOSE CARD Waste Sort Code = [place] [employer], Application site: joint pain docusate sodium (COLACE) capsule 100 mg 100 mg, Oral, 2 TIMES DAILY PRN, Starting on 01/29/25 at 1015, Until 01/30/25 at 2301, Constipation, Do not crush or chew. iohexoL (OMNIPAQUE-350) solution 75 mL (COMPLETED) 75 mL, Intravenous, ONCE PRN, 1 dose, Starting on 01/30/25 at 1300, Until 01/30/25 at 1318, Other, Radiology Procedure, VESICANT , CT (Contrasts) 1318 (Given - Provid er: Jevon Meneses, RT) metoprolol (LOPRESSOR) injection 5 mg 5 mg, Intravenous, EVERY 5 MIN PRN, 3 doses, Starting on 01/29/25 at 203, Until 01/30/25 at 2301, HR is 65 or greater in Radiology and systolic B/P is 100 or greater, After patient in Radiology and has completed PO metoprolol regiment, give metoprolol (LOPRESSOR) injection every 5 minutes for up to a total of 3 doses if HR is 65 or greater and systolic B/P above or equal to 100., Is this for High Blood pressure? No, Pre-procedure(IR) metoprolol (LOPRESSOR) tablet 100 mg (COMPLETED) 100 mg, Oral, ONCE PRN, 1 dose, Starting on 01/29/25 at 2033, Until 01/30/25 at 1211, Pre-procedure if HR greater than or equal to 60 and SBP above or equal to 100, If heart rate is equal to or greater than 60 and systolic B/P is equal to or greater than 100, give metoprolol 100 mg PO one hour prior to scan (CT to call with scheduled time). Preferably taken with or immediately following meals. Take consistently with relation to food., Pre-procedure(IR) 1211 (Given - Provid er: Rachel Astudillo RN - Comment: CTA rescheduled for today) nitroGLYCERIN (NITROSTAT) SL tablet 0.4 mg 0.4 mg, Sublingual, EVERY 5 MIN PRN, Starting on 01/29/25 at 2007, Until 01/30/25 at 2301, Chest pain, 0.4 mg = 1 Tab sublingual q5 min x 3 for CP, then notify MD if unrelieved - hold if SBP less than 90. Administer for angina/chest pain prior to administration of analgesics for angina. 1307 (Given - Provid er: Rachel Astudillo RN - Comment: for CTA) ondansetron (ZOFRAN) injection 4 mg(Linked Group 1) 4 mg, Intravenous, EVERY 4 HOURS PRN, Starting on 01/29/25 at 1015, Until 01/30/25 at 2301, Nausea ondansetron (ZOFRAN) tablet 4 mg(Linked Group 1) 4 mg, Oral, EVERY 4 HOURS PRN, Starting on 01/29/25 at 1015, Until 01/30/25 at 2301, Nausea polyethylene glycol (GLYCOLAX, MIRALAX) packet 17 g 17 g, Oral, 2 TIMES DAILY PRN, Starting on 01/29/25 at 1015, Until 01/30/25 at 2301, Constipation, If multiple oral PRN laxatives/stool softeners ordered, may give per patient preference. sodium chloride 0.9% syringe 50 mL (COMPLETED) 50 mL, Intravenous, ONCE PRN, 1 dose, Starting on 01/30/25 at 1300, Until 01/30/25 at 1319, Line Care, Use for drug dilution, Flush peripheral lines every 12 hours, central lines every 8 hours, and after IV medication, CT (Contrasts) 1319 (Given - Provid er: Jevon Meneses, RT) sodium chloride 0.9% syringe (COMPLETED) Intravenous, ONCE PRN, 1 dose, Starting on 01/30/25 at 1300, Until 01/30/25 at 1318, Line Care, Flush peripheral lines every 12 hours, central lines every 8 hours, and after IV medication, CT (Contrasts) 1318 (Given - Provid er: Jevon Meneses, ) Linked Groups Order Group 1: ondansetron (ZOFRAN) tablet 4 mgJump to med 4 mg, Oral, EVERY 4 HOURS PRN, Starting on 01/29/25 at 1015, Until 01/30/25 at 2301, Nausea Or ondansetron (ZOFRAN) injection 4 mgJump to med 4 mg, Intravenous, EVERY 4 HOURS PRN, Starting on 01/29/25 at 1015, Until 01/30/25 at 2301, Nausea documented in this encounter Orders Medications Ordered That Buster ht Not Have Been Administered Count Last Ordered Date First Ordered Date acetaminophen (TYLENOL) tablet 650 mg 2 albuterol (PROVENTIL HFA;ARCHIE TOLIN HFA) inhaler 2 Puff 1 01/29/2025 albuterol (PROVENTIL) nebuli zer solution 2.5 mg 1 01/29/2025 diazePAM (VALIUM) tablet 5 mg 1 01/29/2025 diclofenac (VOLTAREN) 1 % gel 2 g 1 025 docusate sodium (COLACE) capsule 100 mg 1 1 04/01/2024 flu vac triv (PF) (FLULAVAL/ FLUARIX) injection 0.5 mL 1 01/29/2025 fluticasone propionate (FLON ASE) 50 mcg/actuation nasal spray 1 [place] 1 01/29/2025 mesalamine (PENTASA) CR capsule 500 mg 1 Mesalamine Cp24 1.5 g 1 01/29/2025 metoprolol (LOPRESSOR) injection 5 mg 1 metoprolol (LOPRESSOR) tablet 50 mg 1 01/29 nitroGLYCERIN (NITROSTAT) SL tablet 0.4-0.8 mg 1 01/29/2025 ondansetron (ZOFRAN) injection 4 mg 2 01/29 ondansetron (ZOFRAN) tablet 4 mg 1 01/30/20 polyethylene glycol (GLYCOLA X, MIRALAX) packet 17 g 1 01/29/2025 Consult Count Last Ordered Date First Orde red Date IP CONSULT TO PSYCHIATRY 1 01/29/2025 Behavioral [facility] Services Count Last Ordered D ate First Ordered Date ED CONSULT FOR MENTAL HEALTH ASSESSMENT 1 1 04/01/2024 Admission Count Last Ordered Date First Orde red Date ADMIT 1 01/29/2025 Discharge Count Last Ordered Date First Orde red Date DISCHARGE PATIENT 1 01/30/2025 documented in this encounter Additional Health Concerns Assessment Noted Time PHQ-9 Depression Total Score: 3 01/30/20 12:44 PM EST PHQ-2 Depression Total Score: 3 01/30/20 12:44 PM EST documented as of this encounter Care Teams Platform Man Relationship Specialty Start Date End Date Melnoie Kent APRN [facility] [address] [place] [id number] PCP - General Nurse Practitioner 04/27/24 Brayden Khan MD Internal Medicine-Gastroenterology 11/27/12 Rama Dowlel MD Internal Medicine-Gastroenterology 12/23/12 Devin Farias MD [address] [place] [address] [address] [place], [place] [id number] Internal Medicine-Interventional Cardiology 08/22/22 documented as of this encounter
--- NOTE | 2025-02-06 03:30 | ECG_ITS ---
APPROVED REPORT Exam: Resting ECG HR:93 bpm ECG Measurements Heart Rate 93 AXES IN 195 P 84 QRSd 85 QRS 22 QT 343 T 89 QTc 393 Conclusion SINUS RHYTHM NORMAL ECG UNCONFIRMED REPORT Electronically signed by : JOHNY RIGGS, 02/06/2025 05:40:22
--- NOTE | 2025-02-06 03:39 | XR_ITS ---
PROCEDURE INFORMATION: Exam: XR Chest Exam date and time: 02/06/2025 3:51 AM Age: 44 years old Clinical indication: Pain; Chest pressure and left-sided; Additional info: Chest pain TECHNIQUE: Imaging protocol: Radiologic exam of the chest. Views: 1 view. COMPARISON: CT ANGIO CHEST 01/26/2025 1:16 PM FINDINGS: Lungs: Unremarkable. No consolidation. Pleural spaces: Unremarkable. No pleural effusion. No pneumothorax. Heart/Mediastinum: Unremarkable. No cardiomegaly. Bones/joints: Unremarkable. IMPRESSION: No acute findings.
--- OUTSIDE RECORDS SUMMARY | 2025-02-06 03:41 | XMS_ITS | Clinical Summary ---
Author Organization [email or web address] Address [address] [place] [address] Phone Care Team Providers Care Hospitality Ambassador Name Role Phone Unavailable Unavailable Conditions or Problems No information available. Medications No information available. Medications Administered No information available. Allergies, Adverse Reactions, Alerts No information available. Results No information available. Plan of Care No information available. Procedures No information available. Vital Signs No information available. Immunizations No information available. Advance Directives No information available.
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
--- OUTSIDE RECORDS SUMMARY | 2025-02-06 03:42 | XMS_ITS | Encounter Summary ---
Author Organization [facility] Address [address] [place] [address] Care Team Providers Care Meat Cutter Name Role Phone Brayden Khan MD Unavailable Rama Dowell MD Unavailable Unavailable Devin Farias MD Unavailable [phone] Melonie Kent APRN Primary Care Provider [phone] Reason for Visit * Reason Comments Medication Refill Encounter Details Date Type Department Care Team (Late st Contact Info) Description 01/01/2025 Refill [facility] [address] [place] [address] Riya Ocampo APRN [address] [place] [address] Medication Refill Social History Tobacco [...] EDT Office Visit [facility] [address] [place] [address] Devin Farias MD [address] [place] [address] documented as of this encounter Goals Goal [...] documented as of this encounter Care Teams Meat Cutter Relationship Specialty Start Date End Date Melonie Kent APRN Pending sale to [facility] [address] [address] PCP - General Nurse Practitioner 04/27/24 Brayden Khan MD Internal Medicine-Gastroenterology 11/27/12 Rama Dowell MD Internal Medicine-Gastroenterology 12/23/12 Devin Farias MD [address] [place] [id number] Internal Medicine-Interventional Cardiology 08/22/22 documented as of this encounter
--- OUTSIDE RECORDS SUMMARY | 2025-02-06 03:42 | XMS_ITS | Clinical Summary ---
Author Organization [facility] Address [address] [place] [id number] Care Team Providers Care R&D Lab Technician Name Role Phone Other, Physician Bina WOODARD [...] patient's age to complete this topic Insurance [facility] MEDICARE ALL OTHER MEDICAID [place] Care Teams R&D Lab Technician Relationship Specialty Start Date End Date Other, Physician MD Bina PCP - General Internal Medicine 04/13/18
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
--- OUTSIDE RECORDS SUMMARY | 2025-02-06 03:42 | XMS_ITS | Clinical Summary ---
Author Organization [facility] Address [address] [place] [id number] Care Team Providers Care Plastic Cnc Machine Operator Name Role Phone Pcp, No Primary Care Provider [phone] Source Comments This information has been [...] therelease of HIV test results or diagnoses. [id number] Allergies Active Allergy Reactions Criticality Noted Date Comments Adalimumab 07/14/2014 Manley like had a virus, Joint pain fatigue Manley like had a virus, Joint pain fatigue [...] 92 mg/dL 11/27/2017 5:18 AM EDT [facility] Comment: LIPID PROFILE INTERPRETATION CHOLESTEROL,TOTAL(mg/dL) [...] 57 mg/dL 8 5:18 AM EDT [facility] Plasma specimen (specimen) 11/27/2017 4:30 AM EDT 11/27/2017 4:51 AM EDT us Chap[place]ito Winston MD LAB BLOOD ORDERABLES F inal Result [facility] [address] [place] [address], [facility] from Last 3 Months or Most Recently Relevant to Health Maintenance Insurance [employer] MEDICAID [place] Advance Directives For more information, please contact: [phone] * Full Code (Latest Code Status on File) Date Activated Date Inactivated Comments 11/27/2017 3:31 AM 11/27/2017 4:34 PM Care Teams Plastic Cnc Machine Operator Relationship Specialty Start Date End Date Pcp, No No Address PCP - General 05/26/23
--- OUTSIDE RECORDS SUMMARY | 2025-02-06 03:42 | XMS_ITS | Encounter Summary ---
Author Organization [facility] [place] [address] Care Team Providers Care Nail Feeder Name Role Phone Brayden Khan MD Unavailable [phone] Rama Dowell MD Unavailable Unavailable Devin Farias MD Unavailable [phone] Melonie Kent APRN Primary Care Provider [phone] Encounter Details Date Type Department Care Team [...] medical care, and heating? Somewhat hard 01/29/2025 [facility] - Occupational Stress [...] to get more. Never true 01/29/2025 [facility] Utilities Answer Date Recorded In the past 12 months has th e electric, gas, oil, or water company threatened to shut off services in your home? No 01/29/2025 [facility] IP Transportation Answer D ate Recorded In [...] EDT Office Visit [facility] [address] [place] [address] Devin Farias MD [address] [place] [address] documented as of this encounter Goals Goal Patient Goal Type Associated Problems Recent Progress Patient-Stated? Author Blood Pressure < 140/90 Blood Pressure 117/71(2024 12:11 PM EST) No Meagan Estrada CCMA Maintain a healthy diet, exercise regularly and maintain an ideal body weight General No Meagan Estrada CCMA Stay Tobacco Free Lifestyle No Meaagn Estrada CCMA documented as of this encounter Visit Diagnoses Not on filedocumented in this encounter Additional Health Concerns Assessment Noted Time PHQ-9 Depression Total Score: 3 01/30/20 25 12:44 PM EST PHQ-2 Depression Total Score: 3 01/30/20 25 12:44 PM EST documented as of this encounter Care Teams Nail Feeder Relationship Specialty Start Date End Date Melonie Kent APRN [address] [facility] [address] [place] [phone] PCP - General Nurse Practitioner 04/27/24 Brayden Khan MD Internal Medicine-Gastroenterology 11/27/12 Rama Dowell MD Internal Medicine-Gastroenterology 12/23/12 Devin Farias MD [address] [place] [address] Internal Medicine-Interventional Cardiology 08/22/22 documented as of this encounter
[2025-02-06 03:44] VITALS: BP 163/78; PULSE 109; RESP 18; TEMP 36.6; O2SAT 98; BMI 27.2
--- NOTE | 2025-02-06 03:48 | HMH.EDGENADL ---
Discharge Plan Disposition Patient Disposition: Home, Self-Care Prescriptions Prescriptions: No Action aspirin [Adult Low Dose Aspirin] 81 mg tablet,delayed release (DR/EC) 81 mg PO DAILY ascorbic acid (vitamin C) 250 mg tablet 250 mg PO DAILY valacyclovir 500 mg tablet 500 mg PO BID Qty: 180 1RF fluticasone propionate 50 mcg/actuation spray,suspension 1 spray intranasal DAILY Qty: 16 2RF Rx Instructions: administer into each nostril nitroglycerin 0.4 mg tablet, sublingual buccal Patient Comments: DISSOLVE 1 TABLET UNDER THE TONGUE NEEDED FOR CHEST PAIN. REPEAT EVERY 5 MINUTES 3 TIMES. IF NO RELIEF GO TO ER. diclofenac sodium 1 % gel 2 g topical QID Qty: 100 5RF Rx Instructions: apply to single elbow, wrist or hand; for hand includes palm/fingers/back of hand varenicline tartrate 1 mg tablet 1 mg PO BID Patient Comments: TAKE 1 TABLET BY MOUTH TWICE DAILY. ondansetron HCl 4 mg tablet 4 mg PO Q8H PRN (Reason: nausea and vomiting) Qty: 20 0RF chlorthalidone 25 mg tablet 25 mg PO DAILY Qty: 30 2RF epinephrine [EpiPen] 0.3 mg/0.3 mL auto-injector 0.3 mg IM Q4H PRN (Reason: anaphylaxis) Qty: 2 1RF azithromycin 250 mg tablet See Rx Instructions PO .COMPLEX Qty: 6 0RF Rx Instructions: For 250 mg dose pack: take 500 mg today (day 1), then 250 mg for 4 days (days 2-5) PO gabapentin 800 mg tablet 800 mg PO QID Patient Comments: TAKE 1 & 1/2 TABLETS BY MOUTH 4 TIMES A DAY FOR 30 DAYS ibuprofen 800 mg tablet 800 mg PO Q8H PRN (Reason: pain) Qty: 60 1RF promethazine-DM 6.25-15 mg/5 mL syrup 5 ml PO Q4-6H PRN (Reason: cough) Qty: 240 0RF tadalafil 20 mg tablet See Rx Instructions .ROUTE .COMPLEX Qty: 30 5RF Dose Instruction: TAKE 1 TABLET BY MOUTH 30 MINUTES BEFORE SEXUAL ACTIVITY. DO NOT USE MORE THAN 1 TABLET PER 24 HOURS Rx Instructions: TAKE 1 TABLET BY MOUTH 30 MINUTES BEFORE SEXUAL ACTIVITY. DO NOT USE MORE THAN 1 TABLET PER 24 HOURS mometasone 0.1 % cream See Rx Instructions .ROUTE .COMPLEX Qty: 45 2RF Dose Instruction: APPLY TOPICALLY TO AFFECTED AREA 2 TIMES DAILY Rx Instructions: APPLY TOPICALLY TO AFFECTED AREA 2 TIMES DAILY cholecalciferol (vitamin D3) 125 mcg (5,000 unit) tablet 125 mcg PO DAILY Qty: 30 5RF albuterol sulfate 90 mcg/actuation HFA aerosol inhaler See Rx Instructions .ROUTE .COMPLEX Qty: 8.5 2RF Dose Instruction: Inhale 2 Puffs into the lungs every 6 hours as needed for shortness of breath or wheezing. Rx Instructions: Inhale 2 Puffs into the lungs every 6 hours as needed for shortness of breath or wheezing. duloxetine 60 mg capsule,delayed release(DR/EC) 60 mg PO DAILY Qty: 30 2RF aripiprazole [Abilify] 5 mg tablet 5 mg PO DAILY Qty: 30 2RF budesonide 3 mg capsule,delayed,extend.release See Rx Instructions .ROUTE .COMPLEX Qty: 90 2RF Dose Instruction: Take 3 Capsules by mouth once daily. Rx Instructions: Take 3 Capsules by mouth once daily. mesalamine 0.375 gram capsule,extended release 24hr 1.5 g PO DAILY Qty: 360 3RF dextroamphetamine-amphetamine [Adderall] 30 mg tablet 30 mg PO BID Qty: 60 0RF esomeprazole magnesium 40 MG capsule,delayed release(DR/EC) 40 mg PO DAILY Referrals Follow up/Referrals: Melonie Kent APRN [Primary Care Provider, Family Practice] - See instructions Activity Restrictions/Add. Instructions Additional Instructions/Restrictions: Please follow-up with your primary care provider. Please return to the emergency department if you develop any new or worsening symptoms or become concerned for your health. Clinical Impressions Clinical Impression: Chest pain, Amphetamine abuse Print Language Print Language: Iraqi Discharge ED Provider: Gt Gonzalez General Adult HPI General Chief complaint: Chest Pain Stated complaint: chest pain Time Seen by Provider: 02/06/25 03:40 History of Present Illness HPI narrative: 44-year-old male with history of chronic drug use presents for chest pain. He reports that his chest pain started several hours ago. He admits to meth use at 6 PM yesterday. He denies significant shortness of breath. He is twitchy. EMS was unable to get a accurate EKG, or IV access. Patient denies recent fever or illness. Reports that he smokes the meth. Related Data Home Medications ?Medication ?Instructions ?Recorded ?Confirmed esomeprazole magnesium 40 mg 40 mg PO DAILY GERD 07/18/20 02/01/25 capsule,delayed release ascorbic acid (vitamin C) 250 mg 250 mg PO DAILY 10/09/22 02/01/25 tablet aspirin 81 mg tablet,delayed 81 mg PO DAILY 10/09/22 02/01/25 release (Adult Low Dose Aspirin) gabapentin 800 mg tablet 800 mg PO QID 11/25/23 02/01/25 nitroglycerin 0.4 mg sublingual mg buccal 03/19/24 02/01/25 tablet varenicline tartrate 1 mg tablet 1 mg PO BID 07/20/24 02/01/25 Previous Rx's ?Medication ?Instructions ?Recorded valacyclovir 500 mg tablet 500 mg PO BID #180 tabs 10/23/23 tadalafil 20 mg tablet See Rx Instructions .Route 01/26/24 .COMPLEX #30 tabs fluticasone propionate 50 1 spray intranasal DAILY #16 grams 02/17/24 mcg/actuation nasal spray,suspension diclofenac sodium 1 % topical gel 2 g topical QID #100 grams 03/19/24 mometasone 0.1 % topical cream See Rx Instructions .Route 03/22/24 .COMPLEX #45 grams cholecalciferol (vitamin D3) 125 125 mcg PO DAILY #30 tabs 05/06/24 mcg (5,000 unit) tablet albuterol sulfate 90 mcg/actuation See Rx Instructions .Route 06/02/24 aerosol inhaler .COMPLEX #8.5 grams ondansetron HCl 4 mg tablet 4 mg PO Q8H PRN nausea and 06/14/24 vomiting #20 tabs ibuprofen 800 mg tablet 800 mg PO Q8H PRN pain #60 tabs 08/10/24 aripiprazole 5 mg tablet (Abilify) 5 mg PO DAILY #30 tabs 08/21/24 duloxetine 60 mg capsule,delayed 60 mg PO DAILY #30 caps 08/21/24 release budesonide 3 mg See Rx Instructions .Route 09/15/24 capsule,delayed,extended release .COMPLEX #90 caps chlorthalidone 25 mg tablet 25 mg PO DAILY #30 tabs 09/20/24 epinephrine 0.3 mg/0.3 mL 0.3 mg (0.3 mL) IM Q4H PRN 09/20/24 injection, auto-injector (EpiPen) anaphylaxis #2 ea dextroamphetamine-amphetamine 30 30 mg PO BID #60 tabs 09/28/24 mg tablet (Adderall) mesalamine 0.375 gram 1.5 g (4 x 0.375 gram) PO DAILY 09/28/24 capsule,extended release 24 hr #360 caps promethazine-DM 6.25 mg-15 mg/5 mL 5 ml PO Q4-6H PRN cough #240 mL 12/27/24 oral syrup azithromycin 250 mg tablet See Rx Instructions PO .COMPLEX #6 02/01/25 tabs Allergies Allergy/AdvReac Type Severity Reaction Status Date / Time bee venom protein (honey bee) Allergy Severe Anaphylaxis Verified 02/01/25 13:53 cephalexin (From KEFLEX) Allergy Unknown ITCHING Verified 02/01/25 13:53 morphine (MORPHINE) Allergy Unknown HEADACHE Verified 02/01/25 13:53 sulfamethoxazole (From Allergy Unknown BREATHING Verified 02/01/25 13:53 BACTRIM) trimethoprim (From BACTRIM) Allergy Unknown BREATHING Verified 02/01/25 13:53 PFSH PFS Disclaimer: The information contained in this section may have been updated after the patient was seen, as this information can be updated by other users. 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 Pulmonary hypertension Urinary hesitancy Vitamin B12 deficiency Prediabetes Hypertriglyceridemia Essential hypertension Surgical History History of ankle surgery History of eye surgery Family History Grandmother Stroke Father Coronary artery disease Social History Smoking Status: Current every day smoker tobacco type: cigarettes packs per day: 1 alcohol intake: never substance use type: heroin current occupational status: disabled Travel in the last 8 weeks?: Inside the [place] Have you lived/traveled outside US in past 30 days?: No Contact w/someone who lives/traveled outside US past 30 days?: No Exposure to someone with infectious disease in past 14 days?: No Do you have a fever (greater than 100.4 F or 38 C)?: No Have you tested positive for COVID-19?: No Exposed to someone with COVID-19 in past 14 days?: No Do you have a sore throat?: No Do you have a cough?: No Do you have any weakness?: No Do you have any diarrhea?: No Are you experiencing any unusual bleeding?: No Do you have any muscle aches/pain?: Yes Do you have any abdominal pain?: No Are you experiencing loss of taste or smell?: No Other Medical History Have you received the Flu Vaccine for this season: No Have you received the Pneumonia Vaccine: No ROS Obtained: Yes All systems reviewed & no additional complaints except as documented Physical Exam General General appearance: alert, anxious and in distress Head Head exam: atraumatic and normocephalic Eye Eye exam: Present normal appearance, PERRL and EOMI ENT ENT exam: Present normal oropharynx and normal external ear exam Neck Neck exam: Present normal inspection and full ROM Chest Chest inspection: Present normal inspection and symmetric chest wall rise; Absent tenderness Respiratory Respiratory exam: Present normal lung sounds bilaterally; Absent respiratory distress Cardiovascular Cardiovascular exam: Present regular rate and normal rhythm Abdominal Exam Abdominal exam: Present soft; Absent distention, tenderness or guarding Extremities Exam Extremities exam: Present normal inspection; Absent edema or joint swelling Back Exam Back exam: Present normal inspection; Absent tenderness Neurological Exam Neurological exam: Present alert, oriented X3 and other (Tremorous); Absent motor sensory deficit Psychiatric Psychiatric exam: Present agitated and anxious Skin Skin exam: Present warm, dry and normal color Lymphatic Lymphatic Findings: no adenopathy Medical Decision Making Medical Records Medical records reviewed: Yes I reviewed the patient's medical records. Screening: Per USPSTF and CDC recommendations, given the prevalence of disease in our region, it is our hospital?s policy to screen for HIV and viral Hepatitis for all patients aged 18 and over and those with ongoing risk factors. Andrea Inquiry Pt receiving controlled substance: No Andrea was queried for this patient: No Vital Signs: 02/06/25 03:44 Temperature 97.9 F Temperature Source Oral Pulse Rate [Right] 109 H Respiratory Rate 18 Blood Pressure [Right Arm] 163/78 H Blood Pressure Mean [Right Arm] 106 02 Sat by Pulse Oximetry 98 Oxygen Delivery Method Room Air Lab Data Lab results reviewed: Yes I reviewed the patient's lab results. Lab Results 02/06/25 03:43: WBC 13.0 H, RBC 4.76, Hgb 14.1, Hct 40.5 L, MCV 85.1, MCH 29.6, MCHC 34.8, RDW 15.0, Plt Count 364, MPV 9.7, Neut % (Auto) 70.6, Lymph % (Auto) 20.6, Collier % (Auto) 7.1, Eos % (Auto) 0.4, Baso % (Auto) 0.5, Neut # (Auto) 9.2 H, Lymph # (Auto) 2.7, Collier # (Auto) 0.9, Eos # (Auto) 0.1, Baso # (Auto) 0.1, D-Dimer 0.52 H, Sodium 138, Potassium 3.5, Chloride 108 H, Carbon Dioxide 24, Anion Gap 9.5, BUN 14, Creatinine 1.10, Estimated Creat Clear 103, Estimated GFR 72, Est GFR ( Amer) 88, Glucose 93, Calcium 9.1, Total Bilirubin 0.6, AST 43, ALT 30, Alkaline Phosphatase 127 H, Troponin I < 0.01, Total Protein 6.8, Albumin 4.1, Globulin 2.7, Albumin/Globulin Ratio 1.5, Salicylates < 1.0 L, Acetaminophen < 10 L 02/06/25 05:53: Troponin I < 0.01 02/06/25 03:43 02/06/25 03:43 Orders (Tests/Meds): ED MEDICATIONS Discontinued Medications Generic Name Dose Route Start Last Admin Trade Name Freq PRN Reason Stop Dose Admin Diazepam 10 mg 02/06/25 03:43 02/06/25 03:51 Diazepam 10mg/2ml Syringe IV 02/06/25 03:44 10 mg ONCE ONE Administration Diphenhydramine HCl 50 mg 02/06/25 03:44 02/06/25 03:51 Diphenhydramine 50mg/Ml Vial IV 02/06/25 03:45 50 mg ONCE ONE Administration ORDERS Category Date Time Status Chest XR -- portable [XR chest portable] Stat Exams 02/06/25 03:39 Completed Acetaminophen Stat Lab 02/06/25 03:43 Completed CBC w/Auto Diff [Complete Blood Count Auto Diff] Stat Lab 02/06/25 03:43 Completed CMP [Comprehensive Metabolic Panel] Stat Lab 02/06/25 03:43 Completed D-Dimer Stat Lab 02/06/25 03:43 Completed Salicylate Stat Lab 02/06/25 03:43 Completed Trop I [Troponin I] Stat Lab 02/06/25 03:43 Completed Troponin I Q3H Lab 02/06/25 05:53 Completed Troponin I Q3H Lab 02/06/25 09:45 Ordered ECG Data Tracing #1: I reviewed this ECG and interpreted as documented below: ECG initial impression date: 02/06/25 ECG initial impression time: 03:35 ECG normal with no acute: arrhythmias, ischemia, conduction abnormalities, chamber hypertrophy Normal Sinus Rhythm: Yes HEART Score History (anamnesis): Slightly suspicious ECG: Normal Age: 45-65 years Risk factors: 1-2 risk factors Troponin: </= normal limit HEART Score: 2 Medical Decision Narrative: 44-year-old male with history of various drug use, used amphetamines earlier yesterday, presents with chest pain, tremors, agitation. History was obtained via interactive discussion with patient, EMS, chart review. On arrival, patient is [afebrile, hemodynamically stable, satting appropriately, alert, oriented x4, GCS 15], moving all extremities spontaneously. Full physical exam performed and significant for mildly agitated patient, tremorous, no significant abnormalities on lung exam, no lower extremity edema Differential includes but is not limited to ACS, PE, chest pain secondary to amphetamine use, pneumonia, musculoskeletal pain. Patient was given 10 of IV Valium and 50 of IV Benadryl for agitation. Workup initiated including CBC CMP troponin D-dimer chest x-ray EKG Tylenol salicylate. On re-evaluation, patient sleeping comfortably, reports significant symptomatic improvement Laboratory workup independently interpreted by me and significant for negative initial troponin, negative D-dimer by years criteria, negative Tylenol salicylate. Imaging independently interpreted by me and significant for clear lungs bilaterally without focal opacity. See radiology read for full review of final results. Given patient history, exam and workup, patient's presentation most likely represents chest pain secondary to amphetamine use. Low concern for other emergent pathology. Patient no longer agitated. Patient was discharged in stable condition. Return precautions given. Procedures Risk/Benefits of Procedure(s) Were Explained: Yes Critical Care Critical Care Time Critical Care Time: No
[2025-02-06 03:51] LABS: Hematocrit 40.5 % (42.0-52.0); Hemoglobin 14.1 g/dL (14.1-18.0); Immature Granulocytes % 0.8 %; Mean Corpuscular HGB Conc 34.8 g/dL (31.8-35.4); Mean Corpuscular Hemoglobin 29.6 pg (27.0-31.2); Mean Corpuscular Volume 85.1 fl (80-94); Nucleated Red Blood Cells % 0 %; Platelet Count 364 K/mm3 (142-424); Red Blood Count 4.76 M/mm3 (4.60-6.20); Red Cell Distribution Width-SD 46.5 fL; White Blood Count 13.0 K/mm3 (4.8-10.8)
[2025-02-06] MEDS: diazePAM 10MG/2ML SYRINGE 10 MG IV (03:51)
[2025-02-06 04:05] LABS: Alanine Aminotransferase 30 U/L (12-78); Albumin Level 4.1 g/dl (3.5-5.0); Albumin/Globulin Ratio 1.5 (1.1-1.8); Alkaline Phosphatase 127 U/L (38-126); Anion Gap 9.5 mEq/L (5-15); Aspartate Amino Transferase 43 U/L (17-59); Bilirubin,Total 0.6 mg/dl (0.2-1.3); Blood Urea Nitrogen 14 mg/dl (9-20); Calcium 9.1 mg/dl (8.4-10.2); Carbon Dioxide 24 mmol/L (22.0-30.0); Chloride 108 mmol/L (98-107); Creatinine Clearance Estimated 103 mL/min (50-200); Creatinine,Serum 1.10 mg/dl (0.66-1.25); Estimated Glomerular Filt Rate 72 ml/min (>60); GFR (African American) 88 ML/MIN (>60); Globulin 2.7 g/dL (1.3-3.2); Glucose 93 mg/dl (74-100); Potassium 3.5 mmoL/L (3.5-5.1); Sodium 138 mmol/L (136-145); Total Protein,Serum 6.8 g/dl (6.3-8.2)
[2025-02-06 04:06] LABS: Salicylate < 1.0 mg/dL (2.0-20.0)
[2025-02-06 04:07] LABS: Acetaminophen < 10 ug/ml (10-30)
[2025-02-06 04:09] LABS: D-Dimer 0.52 ug/mL (0.0-0.5)
[2025-02-06 04:18] LABS: Troponin I < 0.01 ng/ml (0.00-0.034)
--- NOTE | 2025-02-06 05:49 | PC.NURSE ---
critical troponin taken by Lam
--- NOTE | 2025-02-06 05:50 | PC.NURSE ---
disregard previous note
[2025-02-06 06:45] LABS: Troponin I < 0.01 ng/ml (0.00-0.034)
[2025-02-06 06:52] VITALS: BP 135/88; PULSE 72; PULSE 75; RESP 19; TEMP 37.2; O2SAT 98
== END 2025-02-06 07:00 | disposition home or self-care (01) ==
PROVIDERS: Emergency Provider Emergency Medicine; PCP Nurse Practitioner
DX: R07.9 Chest pain, unspecified (principal); F15.10 Other stimulant abuse, uncomplicated; F17.210 Nicotine dependence, cigarettes, uncomplicated
CPT/HCPCS: 71045; 80053; 80329; 84484; 85025; 85378; 93005; 96374; 96375; 99284; J1200; J3360